=== PATIENT | female | born 1950 | race Caucasian/White ===

== ENCOUNTER 2020-01-13 12:08 | Outpatient (REF) | payer MEDICARE, SELFPAY ==
[2020-01-13 13:05] LABS: MANUAL DIFF FLAG NO
[2020-01-13 13:13] LABS: Basophils Absolute Auto 0.1 X10*3/uL (0.0-0.2); Basophils Percent Auto 0.6 % (0-2); Eosinophils Absolute Auto 0.2 X10*3/uL (0.0-0.4); Eosinophils Percent Auto 2.7 % (0-4); Hematocrit 35.5 % (37-47); Imm Gran Abs Auto 0.06 X10*3/uL (0.00-0.03); Imm Gran Pct Auto 0.7 % (0.0-0.4); Lymphocytes Absolute Auto 2.1 X10*3/uL (1.2-4.9); Lymphocytes Percent Auto 26.3 % (20-40); Mean Corpuscular Hemoglobin 26.1 pg (27.0-33.0); Mean Corpuscular Volume 84.3 fL (80-98); Monocytes Absolute Auto 0.7 X10*3/uL (0.1-1.2); Monocytes Percent Auto 8.5 % (2-11); Neutrophils Absolute Auto 4.9 X10*3/uL (2.0-8.3); Neutrophils Percent Auto 61.2 % (45-73); Platelet Count 300 X10*3/uL (160-400); Red Blood Count 4.21 X10*6/uL (4.20-5.50); Red Cell Distribution Width 14.6 % (11.0-16.0)
[2020-01-13 13:34] LABS: Anion Gap 12 (12-20); Blood Urea Nitrogen 18 mg/dL (9-16); Calcium 8.9 mg/dL (8.4-10.2); Carbon Dioxide 27 mmol/L (22-29); Chloride 104 mmol/L (96-108); Estimated Glomerular Filt Rate > 60; Glucose Random 106 mg/dL (60-115); Potassium 4.4 mmol/l (3.3-5.1); Sodium 139 mmol/L (135-145)
[2020-01-13 13:50] LABS: Estimated Average Glucose 154 mg/dL; Hemoglobin A1C 151.9084 umol/L
== END 2020-01-13 12:09 | disposition home or self-care (01) ==
LOC: HO.LAB 12:08
PROVIDERS: PCP Internal Medicine; Visit Provider Internal Medicine
DX: I10 Essential (primary) hypertension (principal); E11.9 Type 2 diabetes mellitus without complications
CPT/HCPCS: 36415; 80048; 83036; 85025

== ENCOUNTER 2020-03-24 05:50 | Outpatient (REF) | payer MEDICARE, SELFPAY ==
[2020-03-24 07:07] LABS: MANUAL DIFF FLAG NO
[2020-03-24 07:12] LABS: Basophils Absolute Auto 0.1 X10*3/uL (0.0-0.2); Basophils Percent Auto 0.6 % (0-2); Eosinophils Absolute Auto 0.3 X10*3/uL (0.0-0.4); Eosinophils Percent Auto 3.1 % (0-4); Hematocrit 36.8 % (37-47); Hemoglobin 11.3 g/dl (12.0-16.0); Imm Gran Abs Auto 0.04 X10*3/uL (0.00-0.03); Imm Gran Pct Auto 0.4 % (0.0-0.4); Lymphocytes Absolute Auto 2.6 X10*3/uL (1.2-4.9); Lymphocytes Percent Auto 28.6 % (20-40); Mean Corpuscular HGB Conc 30.7 g/dl (31.0-35.0); Mean Corpuscular Hemoglobin 25.5 pg (27.0-33.0); Mean Corpuscular Volume 82.9 fL (80-98); Mean Platelet Volume 9.7 fL (9.4-12.3); Monocytes Absolute Auto 0.8 X10*3/uL (0.1-1.2); Monocytes Percent Auto 8.9 % (2-11); Neutrophils Absolute Auto 5.3 X10*3/uL (2.0-8.3); Neutrophils Percent Auto 58.4 % (45-73); Platelet Count 344 X10*3/uL (160-400); Red Blood Count 4.44 X10*6/uL (4.20-5.50); Red Cell Distribution Width 15.1 % (11.0-16.0)
[2020-03-24 07:26] LABS: Anion Gap 12 (12-20); Blood Urea Nitrogen 24 mg/dL (9-16); Calcium 8.7 mg/dL (8.4-10.2); Carbon Dioxide 29 mmol/L (22-29); Chloride 103 mmol/L (96-108); Estimated Glomerular Filt Rate 58; Glucose Random 140 mg/dL (60-115); Potassium 4.6 mmol/l (3.3-5.1); Sodium 139 mmol/L (135-145)
[2020-03-24 07:31] LABS: Estimated Average Glucose 151 mg/dL; Hemoglobin A1c % 6.9 %
== END 2020-03-24 05:51 | disposition home or self-care (01) ==
LOC: HO.LAB 05:50
PROVIDERS: PCP Internal Medicine; Visit Provider Internal Medicine
DX: I10 Essential (primary) hypertension (principal); E11.9 Type 2 diabetes mellitus without complications
CPT/HCPCS: 36415; 80048; 83036; 85025

== ENCOUNTER 2020-07-30 05:56 | Outpatient (REF) | payer MEDICARE, SELFPAY ==
[2020-07-30 08:14] LABS: MANUAL DIFF FLAG NO
[2020-07-30 08:24] LABS: Basophils Absolute Auto 0.1 X10*3/uL (0.0-0.2); Basophils Percent Auto 0.8 % (0-2); Eosinophils Absolute Auto 0.3 X10*3/uL (0.0-0.4); Eosinophils Percent Auto 4.3 % (0-4); Hemoglobin 11.5 g/dl (12.0-16.0); Imm Gran Abs Auto 0.02 X10*3/uL (0.00-0.03); Imm Gran Pct Auto 0.3 % (0.0-0.4); Lymphocytes Absolute Auto 2.7 X10*3/uL (1.2-4.9); Lymphocytes Percent Auto 33.5 % (20-40); Mean Corpuscular HGB Conc 31.1 g/dl (31.0-35.0); Mean Corpuscular Volume 83.7 fL (80-98); Mean Platelet Volume 10.2 fL (9.4-12.3); Monocytes Absolute Auto 0.8 X10*3/uL (0.1-1.2); Monocytes Percent Auto 9.8 % (2-11); Neutrophils Absolute Auto 4.1 X10*3/uL (2.0-8.3); Neutrophils Percent Auto 51.3 % (45-73); Platelet Count 306 X10*3/uL (160-400); Red Blood Count 4.42 X10*6/uL (4.20-5.50); Red Cell Distribution Width 14.8 % (11.0-16.0)
[2020-07-30 08:26] LABS: Glucose Urine UA NEG (NEG); Leukocyte Esterase Urine TRACE (NEG); Nitrite Urine NEG (NEG); PH 6.5 (5.0-8.0); Urine Blood NEG (NEG); Urine Ketones NEG (NEG); Urine Protein NEG (NEG-TRACE)
[2020-07-30 08:31] LABS: Appearance Urine CLEAR; Color Urine YELLOW
[2020-07-30 08:40] LABS: Alanine Aminotransferase 21 U/L (0-31); Albumin Level 3.7 g/dL (3.5-5.0); Alkaline Phosphatase 60 U/L (39-117); Anion Gap 14 (12-20); Aspartate Amino Transferase 16 U/L (5-31); Bilirubin Total 0.3 mg/dL (0.0-1.0); Blood Urea Nitrogen 23 mg/dL (9-16); Calcium 8.9 mg/dL (8.4-10.2); Carbon Dioxide 29 mmol/L (22-29); Chloride 102 mmol/L (96-108); Cholesterol 145 mg/dL; Estimated Glomerular Filt Rate > 60; Glucose Fasting 136 mg/dL (60-99); HDL Cholesterol 58 mg/dL; LDL Cholesterol Calculated 63 mg/dl; Potassium 4.7 mmol/L (3.3-5.1); Sodium 140 mmol/L (135-145); Total Protein 6.7 g/dL (6.5-8.0); Triglycerides 124 mg/dL
[2020-07-30 08:43] LABS: RBC Urine 0 /HPF (0); Squamous Epithelial Cell Urine 1+ /LPF; WBC Urine 0-2 /HPF (0-4)
[2020-07-30 09:21] LABS: Microalbum/Creatinine Ratio Ur 7.2 ug/mg cr
[2020-07-30 09:36] LABS: Estimated Average Glucose 157 mg/dL; Hemoglobin A1c % 7.1 %
== END 2020-07-30 05:57 | disposition home or self-care (01) ==
LOC: HO.LAB 05:56
PROVIDERS: PCP Internal Medicine; Visit Provider Internal Medicine
DX: E11.9 Type 2 diabetes mellitus without complications (principal); I10 Essential (primary) hypertension; E78.00 Pure hypercholesterolemia, unspecified
CPT/HCPCS: 36415; 80053; 80061; 81001; 82043; 83036; 85025

== ENCOUNTER 2020-09-20 22:13 | Emergency (ER) | payer MEDICARE, SELFPAY ==
--- NOTE | ~2020-09-20 | XR_ITS ---
EXAMINATION: XR ANKLE, LEFT CLINICAL INFORMATION: Left ankle discomfort without injury. COMPARISON: None TECHNIQUE: AP, lateral, and mortise views of the left ankle. FINDINGS: There is a small calcaneal enthesophyte. No acute fracture or dislocation seen. Alignment is anatomic. Joint spaces are maintained. No joint effusion. XR/XR ankle LT min 3V IMPRESSION: No acute fracture or dislocation seen. Small calcaneal enthesophyte.
[2020-09-20 22:15] VITALS: BP 189/65; PULSE 75; RESP 18; TEMP 36.5; O2SAT 97; BMI 45.6
--- NOTE | 2020-09-20 23:51 | ED.EXTPRO ---
HPI - Extremity Problem General Chief complaint: Extremity Problem Stated complaint: Leg pain Time Seen by Provider: 09/20/20 23:50 Source: patient Mode of arrival: ambulatory Limitations: no limitations History of Present Illness HPI Narrative: States pain to the left bottom of the heel and foot and ankle for past couple days Complaint: extremity pain Onset (ago): day(s) Location: left Relieving factors: rest Exacerbating factors: exertion Associated symptoms: denies other symptoms Related Data Allergies Allergy/AdvReac Type Severity Reaction Status Date / Time No Known Allergies Allergy Unverified 12/18/19 14:36 Review of Systems Review of Systems: Constitutional: No Weight loss, No Fever, No Chills, No Night Sweats, No Fatigue, No Malaise ENT/Mouth: No Hearing loss, No Ear Pain, No Nasal Congestion, No Sinus Pain, No Hoarseness, No sore throat, No Rhinorrhea, No Swallowing Difficulty Eyes: No Eye Pain, No Swelling, No Redness, No Foreign Body, No Discharge, No Vision Changes Cardiovascular: No Chest Pain, No SOB, No Dyspnea on Exertion, No Orthopnea, No Edema, No Palpitations Respiratory: No Cough, No Sputum, No Wheezing, No Dyspnea Musculoskeletal: No joint pain, No Myalgias, No Joint Swelling, as noted per HPI Skin: No Skin Lesions, No rash Neuro: No Weakness, No Numbness, No Paresthesias, No Loss of Consciousness, No Dizziness, No Headache Psych: No Social Issues Heme/Lymph: No Bruising, No Bleeding,No Lymphadenopathy Endocrine: No Polyuria, No Polydipsia, No Temperature Intolerance Yes all other systems are reviewed and are negative [facility] Past Medical History Medical History (Updated 09/21/20 @ 00:05 by Haroldo Shipley NP) Diabetes HTN (hypertension) Social History Social History Advance Directives: No Physical Exam Vital Signs: Vital Signs: Last Vital Signs Temp 97.7 F 09/20/20 22:15 Pulse 75 09/20/20 22:15 Resp 18 09/20/20 22:15 BP 189/65 H 09/20/20 22:15 Pulse Ox 97 09/20/20 22:15 Body Mass Index 45.6 Const: General: cooperative and healthy appearing; No acute distress or intoxicated appearing Nutritional Appearance: average body habitus Orientation/consciousness: patient oriented x3 Chest: Chest palpation & inspection: normal inspection of the chest Resp: Effort & Inspection: normal respiratory effort : General: Yes no CVA tenderness Back/Spine/Pelvis: Back: no CVA tenderness Skin: General skin exam: no rashes or lesions noted Neuro: General: patient oriented x3 Extrem: General: Yes normal to inspection Ankle/foot/toe images: 1. Pain to the heel. And tender palpation over the plantar fascia. Otherwise no erythema swelling. Course Course Course Narrative: [place] for/plantar fasciitis. Feels were prosthetic foot inserts in shoes and are and relatively bad condition she states she is aware and she is due for new inserts and will go to [facility] for further evaluation and inserts. Home care, return, follow-up instructions provided. Stable for discharge. MDM - Extremity (Nontraumatic) Imaging Data Ankle x-ray: Radiologist's impression: Heide Romero 70 F [address] [id number] ReportSigned Patient: Heide RomeroMR#: [id number]: 1950cct:[id number]/Sex: 70 / FADM Date: 09/20/20Loc: HO.EDAttending Dr: Ordering Physician: Generic ED Physician Date of Service: 09/20/20 Procedure(s): XR ankle LT min 3V Accession Number(s): [id number] cc: Generic ED Physician~ EXAMINATION: XR ANKLE, LEFT CLINICAL INFORMATION: Left ankle discomfort without injury. COMPARISON: None TECHNIQUE: AP, lateral, and mortise views of the left ankle. FINDINGS: There is a small calcaneal enthesophyte. No acute fracture or dislocation seen. Alignment is anatomic. Joint spaces are maintained. No joint effusion. XR/XR ankle LT min 3V IMPRESSION: No acute fracture or dislocation seen. Small calcaneal enthesophyte. Dictated By:DAYANA BUCK MDSigned By:<Electronically signed by DAYANA BUCK MD in OV>09/20/202235 DD/ 29TD/TT: [employer] Operator: [facility] [place], [place] Discharge Plan Discharge Clinical Impression: Plantar fasciitis of left foot, Heel spur Patient Disposition: Home, Self-Care Instructions: Plantar Fasciitis (ED), Plantar Fasciitis Exercises (ED) Additional Instructions: Your exam is consistent with plantar fasciitis The x-ray of the lower extremity showed a heel spur that could be contributing to her pain. Homecare instructed Supportive footwear as discussed Return if any concerns or worsening symptoms Wear supportive Alexander wrap for comfort Return if any concerns or worsening symptoms otherwise follow-up with her primary care doctor as discussed Thank you Referrals: Roscoe Rahman MD [Primary Care Provider] - 1 week Interventions: ED Discharge Assessment Last Done: 09/21/20 00:30 Discharge Date/Time: 09/21/20 00:33
== END 2020-09-21 00:33 | disposition home or self-care (01) ==
PROVIDERS: Emergency Provider Emergency Medicine; PCP Internal Medicine
DX: M72.2 Plantar fascial fibromatosis (principal); M77.32 Calcaneal spur, left foot
CPT/HCPCS: 73610; 99283; 99284

== ENCOUNTER 2020-11-26 05:55 | Outpatient (REF) | payer MEDICARE, SELFPAY ==
--- NOTE | ~2020-11-26 | XR_ITS ---
EXAMINATION: XR KNEE, LEFT CLINICAL INFORMATION: Left knee pain. COMPARISON: 02/15/2019 TECHNIQUE: Four views of the left knee. FINDINGS: Since the prior study, there appears to have been progression of degenerative changes in the knees with further narrowing of both the medial and lateral compartments. Sclerosis and osteophyte formation is present. The patellofemoral compartment appears narrowed and posterior patellar osteophytes are seen that are unchanged. XR/XR knee LT 4V IMPRESSION: Tricompartmental degenerative changes which appear slightly increased when compared to the 2019 study with increased joint space narrowing.
[2020-11-26 07:13] LABS: Estimated Average Glucose 154 mg/dL
[2020-11-26 07:27] LABS: Alanine Aminotransferase 26 U/L (0-31); Albumin Level 3.9 g/dL (3.5-5.0); Alkaline Phosphatase 61 U/L (39-117); Anion Gap 12 (12-20); Aspartate Amino Transferase 19 U/L (5-31); Bilirubin Total 0.3 mg/dL (0.0-1.0); Blood Urea Nitrogen 18 mg/dL (9-16); Calcium 9.4 mg/dL (8.4-10.2); Carbon Dioxide 30 mmol/L (22-29); Chloride 104 mmol/L (96-108); Estimated Glomerular Filt Rate 54; Glucose Random 160 mg/dL (60-115); Potassium 4.6 mmol/L (3.3-5.1); Sodium 141 mmol/L (135-145)
[2020-11-26 08:52] LABS: Creatinine Urine 137.22 mg/dL; Microalbum/Creatinine Ratio Ur 10.2 ug/mg cr
== END 2020-11-26 05:56 | disposition home or self-care (01) ==
LOC: HO.LAB 05:55
PROVIDERS: PCP Internal Medicine; Visit Provider Internal Medicine
DX: E11.9 Type 2 diabetes mellitus without complications (principal); I10 Essential (primary) hypertension; M25.562 Pain in left knee
CPT/HCPCS: 36415; 73564; 80053; 82043; 83036

== ENCOUNTER 2021-01-04 07:52 | Outpatient (REF) | payer MEDICARE, SELFPAY ==
--- NOTE | ~2021-01-04 | XR_ITS ---
EXAMINATION: KNEE X-RAY CLINICAL INFORMATION: Pain COMPARISON: Previous left knee x-ray October 2020 TECHNIQUE: Standing AP view of both knees and lateral and sunrise view of the left knee FINDINGS: Left knee: Bone alignment is normal. No fracture or dislocation is seen. There is tricompartment arthritis. There is no significant joint effusion. Standing AP view of the right knee demonstrates arthritis at the medial femoral tibial joint. XR/XR knee LT 2V IMPRESSION: Left knee: Tricompartment arthritis.
--- NOTE | ~2021-01-04 | XR_ITS ---
EXAMINATION: KNEE X-RAY CLINICAL INFORMATION: Pain COMPARISON: Previous left knee x-ray October 2020 TECHNIQUE: Standing AP view of both knees and lateral and sunrise view of the left knee FINDINGS: Left knee: Bone alignment is normal. No fracture or dislocation is seen. There is tricompartment arthritis. There is no significant joint effusion. Standing AP view of the right knee demonstrates arthritis at the medial femoral tibial joint. XR/XR knee standing BI IMPRESSION: Left knee: Tricompartment arthritis.
== END 2021-01-04 07:53 | disposition home or self-care (01) ==
LOC: HO.HOSX 07:52
PROVIDERS: Visit Provider Physician Assistant
DX: M17.12 Unilateral primary osteoarthritis, left knee (principal)
CPT/HCPCS: 20610; 73560; 73565; 99212; J1040

== ENCOUNTER 2021-02-04 05:56 | Outpatient (REF) | payer MEDICARE, SELFPAY ==
[2021-02-04 06:04] LABS: MANUAL DIFF FLAG NO
[2021-02-04 07:11] LABS: Basophils Percent Auto 0.4 % (0-2); Eosinophils Absolute Auto 0.3 X10*3/uL (0.0-0.4); Eosinophils Percent Auto 2.9 % (0-4); Hematocrit 36.2 % (37.0-47.0); Hemoglobin 11.4 g/dl (12.0-16.0); Imm Gran Abs Auto 0.03 X10*3/uL (0.00-0.03); Imm Gran Pct Auto 0.3 % (0.0-0.4); Lymphocytes Absolute Auto 2.5 X10*3/uL (1.2-4.9); Lymphocytes Percent Auto 27.9 % (20-40); Mean Corpuscular HGB Conc 31.5 g/dl (31.0-35.0); Mean Corpuscular Hemoglobin 26.1 pg (27.0-33.0); Mean Corpuscular Volume 82.8 fL (80.0-98.0); Mean Platelet Volume 9.7 fL (9.4-12.3); Monocytes Absolute Auto 0.8 X10*3/uL (0.1-1.2); Neutrophils Absolute Auto 5.3 x10*3/uL (2.0-8.3); Neutrophils Percent Auto 59.5 % (45-73); Platelet Count 325 X10*3/uL (160-400); Red Blood Count 4.37 X10*6/uL (4.20-5.50); White Blood Count 8.9 X10*3/uL (4.8-10.8)
[2021-02-04 07:34] LABS: Anion Gap 12 (12-20); Blood Urea Nitrogen 22 mg/dL (9-16); Calcium 9.2 mg/dL (8.4-10.2); Carbon Dioxide 29 mmol/L (22-29); Chloride 103 mmol/L (96-108); Estimated Glomerular Filt Rate 54; Glucose Random 154 mg/dL (60-115); Potassium 4.8 mmol/L (3.3-5.1); Sodium 139 mmol/L (135-145)
== END 2021-02-04 05:57 | disposition home or self-care (01) ==
LOC: HO.LAB 05:56
PROVIDERS: PCP Internal Medicine; Visit Provider Internal Medicine
DX: I12.9 Hypertensive chronic kidney disease with stage 1 through stage 4 chronic kidney disease, or unspecified chronic kidney disease (principal); N18.9 Chronic kidney disease, unspecified; E11.22 Type 2 diabetes mellitus with diabetic chronic kidney disease
CPT/HCPCS: 36415; 80048; 85025

== ENCOUNTER 2021-05-10 10:39 | Outpatient (REF) | payer MEDICARE, SELFPAY ==
[2021-05-10 10:59] LABS: COVID-19 Test Negative (Negative)
== END 2021-05-10 10:40 | disposition home or self-care (01) ==
LOC: HO.LNP 10:39
PROVIDERS: Visit Provider Internal Medicine
DX: Z20.822 Contact with and (suspected) exposure to COVID-19 (principal); R10.9 Unspecified abdominal pain
CPT/HCPCS: 87635

== ENCOUNTER 2021-07-11 10:44 | Outpatient (REF) | payer MEDICARE, SELFPAY ==
--- NOTE | ~2021-07-11 | XR_ITS ---
EXAMINATION: XR CERVICAL SPINE CLINICAL INFORMATION: Neck pain COMPARISON: None TECHNIQUE: 6 views of the cervical spine, inclusive of flexion and extension views, were obtained. FINDINGS: Bone alignment is normal. No fracture or dislocation is seen. There is degenerative spondylosis at C4-C5.. There is degenerative spondylosis and degenerative disc disease at C5-C6 and C6-C7. Right-sided neural foramen are patent. There is mild left-sided neuroforaminal narrowing from bony osteophyte at C3-C4 and C5-C6. Prevertebral soft tissues are normal. XR/XR cervical spine min 6V IMPRESSION: Degenerative changes.
== END 2021-07-11 10:45 | disposition home or self-care (01) ==
LOC: HO.XRAY 10:44
PROVIDERS: PCP Internal Medicine; Visit Provider Internal Medicine
DX: M54.2 Cervicalgia (principal)
CPT/HCPCS: 72052

== ENCOUNTER 2021-07-22 06:09 | Day surgery (SDC) | payer MEDICARE, SELFPAY ==
[2021-07-22 06:35] VITALS: BMI 40.6
[2021-07-22 06:41] VITALS: BP 174/82; PULSE 107; RESP 18; TEMP 36.3; O2SAT 97
[2021-07-22 07:11] LABS: Glucose, Whole Blood 140 mg/dL (60-115)
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
[2021-07-22] MEDS: Lactated Ringers 1,000 ML 80 ML IVCONT (07:35)
--- NOTE | 2021-07-22 08:27 | PM.OP ---
Brief Operative Note Date of Service: 07/22/21 Pre-op diagnosis: Screening Post-op diagnosis: other (Colon polyp) Procedure: Colonoscopy to the cecum and TI with biopsy and removal of polyp Surgeon: Omdi Green Anesthesia: MAC Was an Restaurant Attendant used for this Procedure?: No Estimated blood loss (mL): 2.0 Pathology: other (A. Ascending colon polyp) Condition: stable Disposition: PACU
[2021-07-22 08:28] VITALS: BP 100/30; PULSE 87; RESP 16; TEMP 36.3; O2SAT 97
[2021-07-22 08:42] VITALS: BP 114/61; PULSE 84; RESP 16; TEMP 36.3; O2SAT 97
--- NOTE | 2021-07-22 17:52 | HO.POSTANES ---
Post Anesthesia Evaluation Post Anesthesia Evaluation Vital Signs: Vital Signs Temp Pulse Resp BP Pulse Ox 07/22/21 08:42 97.3 F 84 16 114/61 97 07/22/21 08:28 97.3 F 87 16 100/30 L 97 07/22/21 06:41 97.3 F 107 H 18 174/82 H 97 Anesthesia: Monitored Mental Status: Awake Pain Control: Satisfactory Nausea/Vomiting: None Hydration: Adequate Anesthesia-Related Issues: No Anes. Related Issues
--- NOTE | 2021-07-22 18:55 | OP_ITS ---
SURGEON: Omid Green MD INDICATIONS: The patient presents for evaluation of colorectal cancer screening and prior history of tubular adenoma of the colon. Full consent was obtained from her for this, including risks of bleeding and perforation. PREOPERATIVE DIAGNOSIS: POSTOPERATIVE DIAGNOSIS: PROCEDURE PERFORMED: Colonoscopy to the cecum and terminal ileum with biopsy and removal of polyp. ESTIMATED BLOOD LOSS: COMPLICATIONS: ANESTHESIA: Monitored anesthesia care. ASSISTANTS: SPECIMENS: PREOPERATIVE DIAGNOSES: Colorectal cancer screening and personal history of tubular adenoma of the colon. POSTOPERATIVE DIAGNOSES: Colorectal cancer screening and personal history of tubular adenoma of the colon, small colon polyp, diverticulosis, and internal hemorrhoids. DESCRIPTION OF PROCEDURE: The patient was placed in the left lateral decubitus position. The digital rectal exam revealed no abnormalities. The Olympus video pediatric colonoscope was entered into the rectum advanced easily to the cecum. Once in the cecum, I did identify normal-appearing cecal pouch with appendiceal orifice and a normal-appearing ileocecal valve. The terminal ileum was cannulated and appeared normal. Scope was withdrawn back in the colon. The entire cecum and ileocecal valve appeared normal. The scope was slowly withdrawn assessing all mucosal surfaces carefully. Preparation was excellent. In the ascending colon was a flat approximately 4 mm polyp, which was biopsied and completely removed with cold biopsy forceps. I did not visualize any other polyps, colitis, nor angiodysplasia. There was a moderate amount of sigmoid diverticulosis. In the rectum, scope was retroflexed visualizing internal hemorrhoids, but no other pathology. The rectal mucosa appeared normal. The scope was straightened and withdrawn from the patient. She tolerated the procedure well and was returned to the recovery area in stable condition. IMPRESSION: 1. Small colon polyp, status post biopsy removal. 2. Diverticulosis. 3. Internal hemorrhoids. PLAN: The results of the biopsies will be checked. If the polyp is a tubular adenoma, I would recommend a followup colonoscopy in 5 years. If it is only hyperplastic then I do not think she will need any further screening colonoscopies given her age and previous colonoscopy results in 2003 and 2010. She was advised not to use any aspirin and NSAIDs for 1 week. MD DM Ortiz/SONNY / [id number] ESTHELA
== END 2021-07-22 09:20 | disposition home or self-care (01) ==
PROVIDERS: PCP Internal Medicine; Visit Provider Internal Medicine
PROC: 0DJD8ZZ Inspection of Lower Intestinal Tract, Via Natural or Artificial Opening Endoscopic (ICD-10-PCS; CPT 45378; principal; 2021-07-22 07:30)
DX: Z12.11 Encounter for screening for malignant neoplasm of colon (principal); Z86.010 Personal history of colon polyps; D12.2 Benign neoplasm of ascending colon; K57.30 Diverticulosis of large intestine without perforation or abscess without bleeding; K64.8 Other hemorrhoids; I10 Essential (primary) hypertension; G47.33 Obstructive sleep apnea (adult) (pediatric); E78.5 Hyperlipidemia, unspecified; Z79.82 Long term (current) use of aspirin; E11.9 Type 2 diabetes mellitus without complications; Z79.84 Long term (current) use of oral hypoglycemic drugs; Z79.899 Other long term (current) drug therapy
CPT/HCPCS: 45380; 82947; 88305

== ENCOUNTER 2021-07-26 12:46 | Outpatient (REF) | payer MEDICARE, SELFPAY ==
--- NOTE | ~2021-07-26 | CT_ITS ---
EXAMINATION: CT HEAD WITHOUT CONTRAST CLINICAL INFORMATION: Tendinitis. Frontal headache. COMPARISON: None TECHNIQUE: Contiguous axial imaging was performed from the skull base to vertex without intravenous administration of contrast. This CT examination was performed using dose optimization techniques as appropriate, variously including the following: *Automated exposure control *Adjustment of mA and/or kV according to patient size (this includes techniques or standardized protocols for targeted exams where dose is matched to indication/reason for exam; i.e. extremities or head) *Use of iterative reconstruction technique DLP: 863 mGy-cm FINDINGS: There is no evidence of acute intracranial hemorrhage or territorial infarction. No abnormal mass effect or midline shift is seen. Underwood to white matter differentiation is well preserved. No extra-axial fluid collections are identified. The ventricles are normal in size. There is no abnormal attenuation within the brain parenchyma. The osseous structures and soft tissues are normal. The mastoid air cells and visualized portions of the paranasal sinuses are well aerated. CT/CT head/brain wo con IMPRESSION: No acute intracranial process seen in.
== END 2021-07-26 12:47 | disposition home or self-care (01) ==
LOC: HO.CT 12:46
PROVIDERS: PCP Internal Medicine; Visit Provider Internal Medicine
DX: H93.13 Tinnitus, bilateral (principal); R51.9 Headache, unspecified
CPT/HCPCS: 70450

== ENCOUNTER 2021-10-14 06:04 | Outpatient (REF) | payer MEDICARE, SELFPAY ==
[2021-10-14 06:09] LABS: MANUAL DIFF FLAG NO
[2021-10-14 07:17] LABS: Basophils Absolute Auto 0.1 X10*3/uL (0.0-0.2); Basophils Percent Auto 0.7 % (0-2); Eosinophils Absolute Auto 0.3 X10*3/uL (0.0-0.4); Eosinophils Percent Auto 3.7 % (0-4); Hematocrit 38.9 % (37.0-47.0); Hemoglobin 12.3 g/dl (12.0-16.0); Imm Gran Abs Auto 0.04 X10*3/uL (0.00-0.03); Imm Gran Pct Auto 0.5 % (0.0-0.4); Lymphocytes Absolute Auto 2.9 X10*3/uL (1.2-4.9); Lymphocytes Percent Auto 33.9 % (20-40); Mean Corpuscular HGB Conc 31.6 g/dl (31.0-35.0); Mean Corpuscular Hemoglobin 26.5 pg (27.0-33.0); Mean Corpuscular Volume 83.7 fL (80.0-98.0); Mean Platelet Volume 9.8 fL (9.4-12.3); Monocytes Absolute Auto 0.7 X10*3/uL (0.1-1.2); Monocytes Percent Auto 8.1 % (2-11); Neutrophils Absolute Auto 4.5 x10*3/uL (2.0-8.3); Neutrophils Percent Auto 53.1 % (45-73); Platelet Count 334 X10*3/uL (160-400); Red Blood Count 4.65 X10*6/uL (4.20-5.50); Red Cell Distribution Width 14.8 % (11.0-16.0); White Blood Count 8.5 X10*3/uL (4.8-10.8)
[2021-10-14 07:30] LABS: Estimated Average Glucose 171 mg/dL; Hemoglobin A1c % 7.6 %
[2021-10-14 07:48] LABS: Alanine Aminotransferase 27 U/L (0-31); Albumin Level 3.9 g/dL (3.5-5.0); Alkaline Phosphatase 61 U/L (39-117); Anion Gap 14 (12-20); Aspartate Amino Transferase 20 U/L (5-31); Bilirubin Total 0.3 mg/dL (0.0-1.0); Blood Urea Nitrogen 18 mg/dL (9-16); Calcium 9.3 mg/dL (8.4-10.2); Carbon Dioxide 28 mmol/L (22-29); Chloride 103 mmol/L (96-108); Cholesterol 156 mg/dL; Estimated Glomerular Filt Rate 55; Glucose Fasting 147 mg/dL (60-99); HDL Cholesterol 60 mg/dL; Iron 43 mcg/dL (30-160); LDL Cholesterol Calculated 73 mg/dl; Percent Iron Saturation 12 % (15-50); Sodium 140 mmol/L (135-145); Total Iron Binding Capacity 371 mcg/dL (228-428); Total Protein 6.9 g/dL (6.5-8.0); Triglycerides 117 mg/dL; Unsaturated Iron Binding 328 ug/dL
[2021-10-14 10:05] LABS: Microalbum/Creatinine Ratio Ur 12.3 ug/mg cr
== END 2021-10-14 06:05 | disposition home or self-care (01) ==
LOC: HO.LAB 06:04
PROVIDERS: PCP Internal Medicine; Visit Provider Internal Medicine
DX: E11.22 Type 2 diabetes mellitus with diabetic chronic kidney disease (principal); I12.9 Hypertensive chronic kidney disease with stage 1 through stage 4 chronic kidney disease, or unspecified chronic kidney disease; D63.1 Anemia in chronic kidney disease; N18.9 Chronic kidney disease, unspecified; E78.00 Pure hypercholesterolemia, unspecified
CPT/HCPCS: 36415; 80053; 80061; 82043; 83036; 83540; 85025

== ENCOUNTER → 2021-11-10 09:24 | Outpatient (BNVA) | payer MEDICARE, SELFPAY | PROVIDERS: PCP Internal Medicine; Visit Provider Physician Assistant | DX: M17.12 Unilateral primary osteoarthritis, left knee (principal) | CPT/HCPCS: 20610; 99212; J1020 ==

== ENCOUNTER 2022-05-03 09:22 | Emergency (ER) | payer MEDICARE, SELFPAY ==
--- NOTE | ~2022-05-03 | XR_ITS ---
EXAMINATION: XR FOOT, RIGHT CLINICAL INFORMATION: Dorsal right foot pain after dropping item on it. COMPARISON: Right ankle 11/19/2019 TECHNIQUE: AP, lateral, and oblique views of the right foot. FINDINGS: There is mild hallux valgus seen with degenerative changes present at the first metatarsal phalangeal joint. Degenerative changes are present at the interphalangeal joints. No fractures are seen. A plantar calcaneal spur and some enthesopathy at the insertion of the Achilles tendon are again noted. XR/XR foot RT 2V IMPRESSION: No acute fracture or dislocation. Degenerative changes as described above.
[2022-05-03 09:42] VITALS: BP 160/84; PULSE 110; RESP 20; TEMP 36.7; O2SAT 96; BMI 44.1
--- NOTE | 2022-05-03 09:59 | PC.NURSE ---
patient a&ox3, vss, pt awaiting radiology to rt foot
--- NOTE | 2022-05-03 10:41 | PC.NURSE ---
pt A0x3, reports pain in right foot. waiting provider.
--- NOTE | 2022-05-03 10:56 | ED.LOWEXIN ---
HPI - Extremity Injury (Lower) General Chief Complaint: Extremity Injury, Lower Stated Complaint: R foot inj Time Seen by Provider: 05/03/22 09:49 Source: patient Mode of arrival: ambulatory Limitations: no limitations History of Present Illness HPI Narrative: 72-year-old female presenting to the ER with complaints of right great toe/foot pain/swelling/redness after she dropped a piece of wood and then a can on her foot on Sunday. She reports since then her pain has been progressively worsening along with the redness and swelling. She denies any fevers, recent falls, paresthesias, weakness, calf tenderness, leg swelling, history of gout history of MRSA or any other symptoms complaints or concerns at this time. complaint: foot injury Onset (ago): day(s) (2) Injury: Right: toes (great toe) Type of Injury: blunt Place: home Severity: moderate Relieving factors: nothing Exacerbating factors: weight bearing, movement and palpation Context: direct blow Associated symptoms: swelling and able to partially bear weight Other symptoms: none Related Data Home Medications Medication Instructions Recorded Confirmed citalopram 10 mg tablet 10 mg PO DAILY 02/14/21 07/14/21 ketorolac 0.5 % eye drops 1 drp ophthalmic (eye) TID 02/14/21 07/14/21 lisinopril 20 mg tablet 20 mg PO BID 02/14/21 07/14/21 metformin 500 mg tablet 1,000 mg PO BID 02/14/21 07/14/21 simvastatin 10 mg tablet 10 mg PO BEDTIME 02/14/21 07/14/21 aspirin 81 mg chewable tablet 81 mg PO DAILY 07/14/21 07/14/21 cholecalciferol (vitamin D3) 125 125 mcg PO DAILY 07/14/21 07/14/21 mcg (5,000 unit) tablet (Vitamin D3) multivitamin 1 tab PO BID 07/14/21 07/14/21 Previous Rx's Medication Instructions Recorded cephalexin 500 mg capsule 500 mg PO Q6H 7 days #28 caps 05/03/22 doxycycline monohydrate 100 mg 100 mg PO BID 7 days #14 tabs 05/03/22 tablet ibuprofen 800 mg tablet 800 mg PO Q8H PRN pain #14 tabs 05/03/22 Allergies Allergy/AdvReac Type Severity Reaction Status Date / Time No Known Allergies Allergy Verified 05/03/22 10:37 Review of Systems Review of Systems: Constitutional : No Weight loss, No Fever, No Chills, No Night Sweats, No Fatigue, No Malaise ENT/Mouth : No Hearing loss, No Ear Pain, No Nasal Congestion, No Sinus Pain, No Hoarseness, No sore throat, No Rhinorrhea, No Swallowing Difficulty Eyes: No Eye Pain, No Swelling, No Redness, No Foreign Body, No Discharge, No Vision Changes Cardiovascular : No Chest Pain, No SOB, No Dyspnea on Exertion, No Orthopnea, No Edema, No Palpitations Respiratory : No Cough, No Sputum, No Wheezing, No Smoke Exposure, No Dyspnea Gastrointestinal : No Nausea, No Vomiting, No Diarrhea, No Constipation, No abdominal Pain, No Hematochezia, No Melena Genitourinary : no irregular bleeding, No Dysuria, No Urinary Frequency, No Hematuria, No Urinary Incontinence, No Urgency, No Flank Pain, No Urinary Flow Changes, No Hesitancy Musculoskeletal : + right great toe pain/swelling/erythema, No Myalgias Skin : No Skin Lesions, No rash Neuro : No Weakness, No Numbness, No Paresthesias, No Loss of Consciousness, No Dizziness, No Headache Psych : No Anxiety/Panic, No Depression, No SI/HI/AH/VH, No Social Issues, Heme/Lymph: No Bruising, No Bleeding,No Lymphadenopathy Endocrine : No Polyuria, No Polydipsia, No Temperature Intolerance Yes all other systems are reviewed and are negative [facility] Past Medical History Attestation statement: The following information was validated with the patient. Source: old records reviewed and nursing notes reviewed Medical History Anxiety Arthritis Diabetes Elevated cholesterol HTN (hypertension) Hx of head injury CONCHITA on CPAP Surgical History Hx of bilateral cataract extraction Hx of colonoscopy Social History Social History Alcohol intake: never Patient Tobacco Use Status: Former Tobacco user Smoked in Last 30 Days: No Use of substances other than those prescribed or required for medical reasons: No Advance Directives: No Advance Directives Information Provided: No Current occupational status: retired Current occupation: rt handed Physical Exam Vital Signs: Vital Signs: Last Vital Signs Temp 98.1 F 02/01/23 09:42 Pulse 110 H 05/03/22 09:42 Resp 20 05/03/22 09:42 BP 160/84 H 05/03/22 09:42 Pulse Ox 96 05/03/22 09:42 O2 Del Method 05/03/22 09:42 BMI result Body Mass Index 44.1 vital signs have been reviewed as normal and appeared to be correct. Blood pressure 160/84 Heart rate 110. Respiration rate normal. Temperature normal. Oxygen saturation normal. Appearance: Alert. Oriented X3. No acute distress. Head: Normal external exam. Normocephalic. Atraumatic. Eyes: PERRLA. EOMI. Conjunctiva and sclera normal. Eyelids normal. ENT: Pharynx normal. Uvula midline. Moist mucous membranes. Neck: Normal inspection. Neck supple. FROM. CVS: Normal heart rate and rhythm. Respiratory: No respiratory distress. Painless inspiration. Skin: Skin warm and dry. Normal skin color. Normal skin turgor. No rashes/lesions/lacerations noted. Extremities: To right foot great toe at the proximal aspect patient has moderate soft tissue swelling and tenderness to palpation with erythema warm to touch consistent with cellulitic infection. There is no streaking noted. There is no obvious ligamentous or tendon injury noted. No obvious deformities are noted. She has full range of motion of right toe/foot and ankle joint. Achilles tendon is intact. Negative Ramos test. No lower extremity edema or calf tenderness noted. Otherwise all other extremities exhibit normal range of motion nontender. Neuro: Oriented X 3. No motor deficit. No sensory deficit. Reflexes normal. Normal steady gait. No focal neuro deficits noted. Vascular: + radial pulses/+ 2 distal pedal pulses/+2 dorsalis pedis b/l. Normal cap refill. No cyanosis noted to upper extremity nails and lower extremity toes nails. Course Course Course Narrative: 72-year-old female presenting to the ER with complaints of right great toe/foot pain/swelling/redness after she dropped a piece of wood and then a can on her foot on Sunday. She reports since then her pain has been progressively worsening along with the redness and swelling. On exam patient has tenderness palpation/erythema/warm to touch to the right great toe at the proximal aspect. No obvious ligamentous or tendon injury noted. No obvious deformities are noted. No lower extremity edema or calf tenderness is noted. No streaking is noted. Not consistent with osteomyelitis. Not consistent with obvious fracture. Not consistent with septic joint. Not consistent with DVT. Therefore x-ray obtained and negative for any acute processes only revealed chronic changes. Therefore at this time will treat symptomatically will place in a ortho boot, treat for possible cellulitis infection and toe sprain along with instructions return if any new or worsening symptoms follow up with primary care provider. Patient understands agrees with this plan. Medical Decision Making Independent Interpretation I performed an independent interpretation of an: Plain X-Ray Radiology Impression Discussion of test interpretation with radiology: I have reviewed the radiologist's reading. Radiologist Impression: FINDINGS: There is mild hallux valgus seen with degenerative changes present at the first metatarsal phalangeal joint. Degenerative changes are present at the interphalangeal joints. No fractures are seen. A plantar calcaneal spur and some enthesopathy at the insertion of the Achilles tendon are again noted.? XR/XR foot RT 2V IMPRESSION: No acute fracture or dislocation. Degenerative changes as described above. Procedures Orthopedic Splinting/Casting Injury #1: Side: right Lower Extremity Injury Location: toe Lower Extremity Immobilizer: boot orthosis Discharge Plan Discharge Clinical Impression: Sprain of great toe, right, Cellulitis of great toe of right foot Patient Disposition: Home, Self-Care Instructions: Cellulitis (ED), Foot Sprain (ED) Prescriptions: New ibuprofen 800 mg tablet 800 mg PO Q8H PRN (Reason: pain) Qty: 14 0RF cephalexin 500 mg capsule 500 mg PO Q6H 7 Days Qty: 28 0RF doxycycline monohydrate 100 mg tablet 100 mg PO BID 7 Days Qty: 14 0RF No Action multivitamin [One A Day Vitamin] Tablet 1 tab PO BID aspirin 81 mg Tablet,Chewable 81 mg PO DAILY cholecalciferol (vitamin D3) [Vitamin D3] 125 mcg (5,000 unit) Tablet 125 mcg PO DAILY citalopram 10 mg tablet 10 mg PO DAILY lisinopril 20 mg tablet 20 mg PO BID simvastatin 10 mg tablet 10 mg PO BEDTIME metformin 500 mg tablet 1,000 mg PO BID ketorolac 0.5 % drops 1 drp ophthalmic (eye) TID Referrals: Roscoe Rahman MD [Primary Care Provider] - 2 days
[2022-05-03] MEDS: Ibuprofen 800 MG TABLET PO (11:10)
--- NOTE | 2022-05-03 11:28 | PC.NURSE ---
walking shoe applied per order
--- NOTE | 2022-05-03 11:29 | PC.NURSE ---
this nurse attempted to apple walking boot to affected extremity, due to pt comfort and stability, provider chavez'd geni shoe for safety comfort and support. pt able to abulate with more steady gait vs the walking boot. pt discharged
== END 2022-05-03 11:29 | disposition home or self-care (01) ==
PROVIDERS: Emergency Provider Student in an Organized Health Care Education/Training Program; PCP Internal Medicine
DX: S93.501A Unspecified sprain of right great toe, initial encounter (principal); S99.921A Unspecified injury of right foot, initial encounter; L03.031 Cellulitis of right toe; X58.XXXA Exposure to other specified factors, initial encounter; Y93.9 Activity, unspecified; Y92.9 Unspecified place or not applicable; Y99.9 Unspecified external cause status; Z79.899 Other long term (current) drug therapy; Z87.891 Personal history of nicotine dependence
CPT/HCPCS: 29515; 73620; 99283; 99284

== ENCOUNTER 2022-06-07 16:17 | Outpatient (REF) | payer MEDICARE, SELFPAY ==
--- NOTE | ~2022-06-07 | US_ITS ---
EXAMINATION: US VENOUS ULTRASOUND WITH DOPPLER LOWER EXTREMITY, LEFT CLINICAL INFORMATION: Edema. COMPARISON: None TECHNIQUE: Ultrasound of the deep veins is performed from the hip to the calf with compression sonography and color and pulse Doppler assessment. Spectral analysis with color-flow imaging is performed. FINDINGS: There is normal venous compression and respiratory variation and augmented flow. The visualized common femoral vein, superficial femoral vein, profunda femoral vein, popliteal vein, and the trifurcation region shows no evidence of deep venous thrombosis. There is no significant popliteal fossa cyst. If the patient's symptoms persist, followup ultrasound in 5 days 7 days might be of value to exclude proximal propagation from a non-visualized calf vein. US/US venous duplex LE LT IMPRESSION: No DVT demonstrated in the left lower extremity.
[2022-06-07 16:45] LABS: MANUAL DIFF FLAG NO
[2022-06-07 17:32] LABS: Basophils Absolute Auto 0.1 X10*3/uL (0.0-0.2); Basophils Percent Auto 0.5 % (0-2); Eosinophils Absolute Auto 0.2 X10*3/uL (0.0-0.4); Eosinophils Percent Auto 1.4 % (0-4); Estimated Average Glucose 226 mg/dL; Hematocrit 37.5 % (37.0-47.0); Hemoglobin 11.9 g/dl (12.0-16.0); Hemoglobin A1c % 9.5 %; Imm Gran Abs Auto 0.07 X10*3/uL (0.00-0.03); Imm Gran Pct Auto 0.6 % (0.0-0.4); Lymphocytes Absolute Auto 2.4 X10*3/uL (1.2-4.9); Lymphocytes Percent Auto 21.2 % (20-40); Mean Corpuscular HGB Conc 31.7 g/dl (31.0-35.0); Mean Corpuscular Hemoglobin 25.5 pg (27.0-33.0); Mean Corpuscular Volume 80.3 fL (80.0-98.0); Mean Platelet Volume 9.9 fL (9.4-12.3); Monocytes Absolute Auto 0.9 X10*3/uL (0.1-1.2); Neutrophils Absolute Auto 7.6 x10*3/uL (2.0-8.3); Neutrophils Percent Auto 68.3 % (45-73); Platelet Count 362 X10*3/uL (160-400); Red Blood Count 4.67 X10*6/uL (4.20-5.50); Red Cell Distribution Width 14.6 % (11.0-16.0); White Blood Count 11.1 X10*3/uL (4.8-10.8)
[2022-06-07 17:41] LABS: Appearance Urine Clear; Color Urine Yellow; Glucose Urine UA Negative (Negative); Leukocyte Esterase Urine Small (1+) (Negative); Nitrite Urine Negative (Negative); PH 7.5 (5.0-9.0); Specific Gravity - Urine 1.015 (1.005-1.025); UMIC TRIGGER UACC YES; Urine Blood Negative (Negative); Urine Ketones Negative (Negative); Urine Protein 30 (1+) mg/dL (Neg-Trace)
[2022-06-07 17:53] LABS: Bacteria Urine None Seen (None Seen); Hyaline Casts Urine 0-2 /LPF (0-2); RBC Urine 0-2 /HPF (0-2); Squamous Epithelial Cell Urine 0-2 /HPF (0-2); UACC Culture Trigger YES
[2022-06-07 18:00] LABS: Creatinine Urine 112.81 mg/dL; Microalbum/Creatinine Ratio Ur 94.8 ug/mg cr
[2022-06-07 18:04] LABS: Alanine Aminotransferase 24 U/L (0-31); Albumin Level 3.9 g/dL (3.5-5.0); Alkaline Phosphatase 60 U/L (39-117); Anion Gap 17 (12-20); Aspartate Amino Transferase 20 U/L (5-31); Bilirubin Total 0.3 mg/dL (0.0-1.0); Blood Urea Nitrogen 15 mg/dL (9-16); C Reactive Protein 0.82 mg/dL (< or = 0.50); Calcium 9.3 mg/dL (8.4-10.2); Carbon Dioxide 25 mmol/L (22-29); Chloride 103 mmol/L (96-108); Estimated Glomerular Filt Rate 57; Glucose Random 152 mg/dL (60-115); Potassium 4.4 mmol/L (3.3-5.1); Sodium 141 mmol/L (135-145); Total Protein 6.9 g/dL (6.5-8.0)
[2022-06-07 18:20] LABS: Free T4 (Free Thyroxine) 1.17 ng/dL (0.71-1.85)
== END 2022-06-07 16:18 | disposition home or self-care (01) ==
LOC: HO.US 16:17
PROVIDERS: PCP Internal Medicine; Visit Provider Internal Medicine
DX: M79.605 Pain in left leg (principal); R10.9 Unspecified abdominal pain; E11.9 Type 2 diabetes mellitus without complications; I10 Essential (primary) hypertension
CPT/HCPCS: 36415; 80053; 81001; 82043; 83036; 84439; 85025; 86140; 87086; 93971

== ENCOUNTER 2022-06-14 07:24 | Outpatient (REF) | payer MEDICARE, SELFPAY ==
--- NOTE | ~2022-06-14 | US_ITS ---
EXAMINATION: US ABDOMEN COMPLETE CLINICAL INFORMATION: Abdominal pain. COMPARISON: Renal ultrasound 09/23/2018. TECHNIQUE: Real-time imaging of the abdominal viscera. Technically limited study secondary to body habitus. FINDINGS: Very limited examination secondary to patient body habitus and shadowing from overlying bowel gas. PANCREAS: Not well visualized due to shadowing from overlying bowel gas. ABDOMINAL AORTA: The proximal, mid, and distal segments are normal in caliber. INFERIOR VENA CAVA: Visualized portions are normal. LIVER: The liver is normal in size. The liver contour is normal. Increased echogenicity. No focal hepatic lesion. There is no intrahepatic biliary duct dilatation seen. GALLBLADDER: Normal. The gallbladder is physiologically distended without evidence of stones, sludge, polyps, wall thickening or pericholecystic fluid. COMMON BILE DUCT: Normal in caliber measuring 0.6 cm in diameter. RIGHT KIDNEY: Cortical thinning. Scattered echogenic foci, that could represent vascular calcifications or medullary nephrocalcinosis. No hydronephrosis. No renal calculi or focal parenchymal lesions. The kidney measures 12.5 cm in maximum dimension. Trace amount of perinephric free fluid. LEFT KIDNEY: Cortical thinning. As above, there are scattered echogenic foci likely that could represent vascular calcifications or medullary nephrocalcinosis. No hydronephrosis. No renal calculi or focal parenchymal lesions. The kidney measures 11.2 cm in maximum dimension. SPLEEN: Normal. The spleen measures 12.0 cm in maximum dimension. FREE FLUID: None. US/US abdomen complete IMPRESSION: 1. Very limited examination secondary to patient body habitus and shadowing from overlying bowel gas. 2. Increased hepatic echogenicity is nonspecific and could be seen in the setting of hepatic steatosis or hepatocellular disease. 3. Bilateral renal cortical thinning with scattered echogenic foci that could represent vascular calcifications or medullary nephrocalcinosis. 4. Trace amount of right perinephric free fluid, nonspecific. If symptoms persist, recommend correlation with CT abdomen/pelvis.
== END 2022-06-14 07:25 | disposition home or self-care (01) ==
LOC: HO.US 07:24
PROVIDERS: PCP Internal Medicine; Visit Provider Internal Medicine
DX: R10.0 Acute abdomen (principal)
CPT/HCPCS: 76700

== ENCOUNTER 2022-08-09 10:39 | Outpatient (REF) | payer MEDICARE, SELFPAY ==
[2022-08-09 13:46] LABS: Alanine Aminotransferase 23 U/L (0-31); Albumin Level 3.8 g/dL (3.5-5.0); Alkaline Phosphatase 61 U/L (39-117); Anion Gap 13 (12-20); Aspartate Amino Transferase 17 U/L (5-31); Bilirubin Total 0.3 mg/dL (0.0-1.0); Blood Urea Nitrogen 19 mg/dL (9-16); Calcium 9.3 mg/dL (8.4-10.2); Carbon Dioxide 27 mmol/L (22-29); Chloride 103 mmol/L (96-108); Estimated Glomerular Filt Rate > 60; Glucose Random 176 mg/dL (60-115); Potassium 4.3 mmol/L (3.3-5.1); Sodium 139 mmol/L (135-145); Total Protein 6.6 g/dL (6.5-8.0)
[2022-08-09 13:48] LABS: Estimated Average Glucose 194 mg/dL; Hemoglobin A1c % 8.4 %
== END 2022-08-09 10:40 | disposition home or self-care (01) ==
LOC: HO.10HDL 10:39
PROVIDERS: Visit Provider Internal Medicine
DX: I12.9 Hypertensive chronic kidney disease with stage 1 through stage 4 chronic kidney disease, or unspecified chronic kidney disease (principal); E11.22 Type 2 diabetes mellitus with diabetic chronic kidney disease; N18.9 Chronic kidney disease, unspecified
CPT/HCPCS: 36415; 80053; 83036

== ENCOUNTER 2022-09-18 16:10 | Outpatient (REF) | payer MEDICARE, SELFPAY ==
[2022-09-18 16:29] LABS: MANUAL DIFF FLAG NO
[2022-09-18 16:49] LABS: Basophils Absolute Auto 0.1 X10*3/uL (0.0-0.2); Basophils Percent Auto 0.7 % (0-2); Eosinophils Absolute Auto 0.2 X10*3/uL (0.0-0.4); Eosinophils Percent Auto 1.5 % (0-4); Hematocrit 37.7 % (37.0-47.0); Imm Gran Abs Auto 0.03 X10*3/uL (0.00-0.03); Imm Gran Pct Auto 0.3 % (0.0-0.4); Lymphocytes Absolute Auto 1.9 X10*3/uL (1.2-4.9); Lymphocytes Percent Auto 18.3 % (20-40); Mean Corpuscular HGB Conc 31.8 g/dl (31.0-35.0); Mean Corpuscular Hemoglobin 25.8 pg (27.0-33.0); Mean Corpuscular Volume 81.1 fL (80.0-98.0); Mean Platelet Volume 9.6 fL (9.4-12.3); Monocytes Absolute Auto 0.9 X10*3/uL (0.1-1.2); Monocytes Percent Auto 8.3 % (2-11); Neutrophils Absolute Auto 7.3 x10*3/uL (2.0-8.3); Neutrophils Percent Auto 70.9 % (45-73); Platelet Count 350 X10*3/uL (160-400); Red Blood Count 4.65 X10*6/uL (4.20-5.50); Red Cell Distribution Width 14.9 % (11.0-16.0); White Blood Count 10.3 X10*3/uL (4.8-10.8)
[2022-09-18 16:56] LABS: Estimated Average Glucose 183 mg/dL
[2022-09-18 17:15] LABS: Alanine Aminotransferase 26 U/L (0-31); Albumin Level 4.1 g/dL (3.5-5.0); Alkaline Phosphatase 67 U/L (39-117); Anion Gap 16 (12-20); Aspartate Amino Transferase 18 U/L (5-31); Bilirubin Total 0.2 mg/dL (0.0-1.0); Blood Urea Nitrogen 22 mg/dL (9-16); C Reactive Protein 0.79 mg/dL (< or = 0.50); Calcium 9.8 mg/dL (8.4-10.2); Carbon Dioxide 26 mmol/L (22-29); Chloride 101 mmol/L (96-108); Estimated Glomerular Filt Rate 53; Glucose Random 209 mg/dL (60-115); Potassium 4.9 mmol/L (3.3-5.1); Sodium 138 mmol/L (135-145); Total Protein 7.6 g/dL (6.5-8.0)
[2022-09-18 17:33] LABS: Vitamin B12 500 pg/mL (200-900)
[2022-09-18 17:34] LABS: Free T4 (Free Thyroxine) 1.03 ng/dL (0.71-1.85); Thyroid Stimulating Hormone 0.26 uIU/mL (0.32-4.0)
[2022-09-18 17:48] LABS: Erythrocyte Sedimentation Rate 36 MM/HR (0-20)
== END 2022-09-18 16:11 | disposition home or self-care (01) ==
LOC: HO.LAB 16:10
PROVIDERS: PCP Internal Medicine; Visit Provider Internal Medicine
DX: R25.1 Tremor, unspecified (principal); E11.9 Type 2 diabetes mellitus without complications; I10 Essential (primary) hypertension
CPT/HCPCS: 36415; 80053; 82550; 82607; 83036; 84439; 84443; 85025; 85652; 86140

== ENCOUNTER 2022-11-09 12:50 | Outpatient (REF) | payer MEDICARE, SELFPAY ==
--- NOTE | ~2022-11-09 | XR_ITS ---
EXAMINATION: XR KNEE, LEFT XR KNEE. STANDING BILATERAL CLINICAL INFORMATION: Left knee pain. COMPARISON: None available. TECHNIQUE: AP standing view of bilateral knees. [place] and lateral views of the left knee. FINDINGS: LEFT KNEE: The bones are diffusely demineralized. Moderate joint effusion. Advanced tricompartmental degenerative changes with tricompartmental osteophytes and loss of joint space most notable in the medial and patellofemoral compartments. Heterogeneous sclerotic density in the diametaphysis of the left femur is difficult to fully evaluate due to overlying patella and technical factors. Vascular calcifications. Possible periosteal reaction along the posterior proximal shaft of the left tibia. AP VIEW OF THE RIGHT KNEE: Moderate degenerative changes with marginal osteophytes and medial joint space narrowing. XR/XR knee standing BI IMPRESSION: Advanced degenerative changes left knee with associated findings as detailed above. Moderate degenerative changes on AP view of the right knee. Additional imaging with CT scan or MRI should be considered for better visualization as these modalities are much more sensitive for detection of fracture or other underlying pathology.
--- NOTE | ~2022-11-09 | XR_ITS ---
EXAMINATION: XR KNEE, LEFT XR KNEE. STANDING BILATERAL CLINICAL INFORMATION: Left knee pain. COMPARISON: None available. TECHNIQUE: AP standing view of bilateral knees. [place] and lateral views of the left knee. FINDINGS: LEFT KNEE: The bones are diffusely demineralized. Moderate joint effusion. Advanced tricompartmental degenerative changes with tricompartmental osteophytes and loss of joint space most notable in the medial and patellofemoral compartments. Heterogeneous sclerotic density in the diametaphysis of the left femur is difficult to fully evaluate due to overlying patella and technical factors. Vascular calcifications. Possible periosteal reaction along the posterior proximal shaft of the left tibia. AP VIEW OF THE RIGHT KNEE: Moderate degenerative changes with marginal osteophytes and medial joint space narrowing. XR/XR knee LT 2V IMPRESSION: Advanced degenerative changes left knee with associated findings as detailed above. Moderate degenerative changes on AP view of the right knee. Additional imaging with CT scan or MRI should be considered for better visualization as these modalities are much more sensitive for detection of fracture or other underlying pathology.
== END 2022-11-09 12:51 | disposition home or self-care (01) ==
LOC: HO.HOSX 12:50
PROVIDERS: Visit Provider Physician Assistant
DX: Z13.89 Encounter for screening for other disorder (principal)

== ENCOUNTER 2022-11-13 08:27 | Outpatient (REF) | payer MEDICARE, SELFPAY | END 2022-11-13 08:28 | disposition home or self-care (01) | LOC: HO.HOSX 08:27 | PROVIDERS: Visit Provider Physician Assistant | DX: M17.12 Unilateral primary osteoarthritis, left knee (principal); E11.9 Type 2 diabetes mellitus without complications | CPT/HCPCS: 20610; 73560; 73565; J1020 ==

== ENCOUNTER 2022-11-13 10:17 | Outpatient (AMB) | payer MEDICARE, SELFPAY ==
[2022-11-13 10:28] VITALS: BMI 44.1
--- NOTE | 2022-11-13 10:28 | MHC.OFFVIS ---
Intake Vital Signs 11/13/22 10:28 Height 5 ft 8 in Weight 290 lb BMI 44.1 Intake Visit Reasons: ov-Left knee OA last inj 11/10/21 Intake Note: Heide is a 72 year old female who presents today for her follow up visit for her left knee pain, last injection 11/10/21. Patient reports last injection provided her relief until about 1-2 weeks ago. She has intermittent pain and is requesting to repeat injections. Allergies No Known Allergies Allergy (Verified 05/03/22 10:37) HPI ov-Left knee OA last inj 11/10/21 HPI Details 72-year-old female who presents in the office today for a follow up of left knee pain. The patient had a left knee cortisone injection on 11/10/2021. She states the last injection gave her relief until 1-2 weeks ago. She reports intermittent pain. She would like a repeat cortisone injection while in the office today. [facility] Medical History (Updated 11/13/22 @ 10:49 by Laya Dockery) Anxiety Arthritis Diabetes Elevated cholesterol HTN (hypertension) Hx of head injury CONCHITA on CPAP Surgical History Hx of bilateral cataract extraction Hx of colonoscopy Social History Alcohol intake: never Patient Tobacco Use Status: Former Tobacco user Current occupational status: retired Current occupation: rt handed Review of Systems Const All systems reviewed & are unremarkable except as noted in HPI and below Physical Exam Vital Signs: BMI result Body Mass Index 44.1 Const General: cooperative, healthy appearing and no acute distress Resp Effort & Inspection: normal respiratory effort and able to speak in complete sentences Cardio Rate: regular rate Peripheral pulses: Peripheral pulses 2+ throughout GI Palpation (GI): Soft to palpation Skin Lesions: no lesions Rashes: no rashes Extrem Other: Left knee: Normal to inspection. No ecchymosis, erythema, or joint effusion. No tenderness to palpation to the medial or lateral joint lines. Full knee extension and flexion. Crepitus felt with ROM. NVI. Office Procedures Joint Injection/Drain Joint Injection/Drain Primary Site: left knee Prep: site was prepped using aseptic technique, ethochloride spray was applied and injection warnings given Injected: 40 mg of, DepoMedrol, with 8 mL of (2% plain lido ) and in the joint Approach Used: anterolateral Procedure: The patient tolerated the procedure well, but had some pain with the injection and there was some relief with the local anesthesia Coding 26806 - Large joint Procedure code (CPT) selection complete Results Reviewed Results Reviewed: 11/13/22 10:33 Lidocaine HCl 2 % MPF [Xylocaine 2 % MPF] 5 ml .ROUTE .STK-MED ONE methylPREDNISolone acetate [DEPO-MedroL] 40 mg .ROUTE .STK-MED ONE Assessment & Plan Assessment & Plan (1) Osteoarthritis of left knee: Code(s): M17.12 - Unilateral primary osteoarthritis, left knee (2) Diabetes: Code(s): E11.9 - Type 2 diabetes mellitus without complications Plan Ms. Romero is a 72-year-old female who presents in the office today for a follow up of left knee pain. The patient had a left knee cortisone injection on 11/10/2021. She states the last injection gave her relief until 1-2 weeks ago. She reports intermittent pain. She would like a repeat cortisone injection while in the office today. The patient was offered a cortisone injection in the left knee with 40 mg of DepoMedrol. The patient was explained the risk, benefits, and alternatives to receiving this injection. After receiving consent for the injection, the patient had the procedure done while in office today. The patient tolerated the procedure well with no complications. Due to the patient?s history of diabetes, they were instructed to monitor her blood glucose level. The patient was informed that they could see a rise in their numbers and if the numbers became too high, they were instructed to call their PCP. The patient was also informed that they could have facial flushing as a side effect of the injection but this will pass. Follow up will be PRN, or sooner if needed. X-rays of the left knee which were obtained while in the office today and were reviewed by me, Aditi Ribeiro PA-C, revealed no evidence of acute fracture or dislocation. Revealed osteoarthritis left knee. Orders: Orders XR knee LT 2V Today M25.569 - Pain in unspecified knee XR knee standing BI Today M25.569 - Pain in unspecified knee Medications: New lidocaine 5% 1 patch topical Q24H 30 ea 1RF Patient Instructions: Scribed for Aditi Ribeiro PA-C by Laya Dockery medical biller/coder, on 11/13/2022 at 10:27 am, EST. Coding Level of Care Code Est Pt Level 4 (94519) Diagnoses Osteoarthritis of left knee M17.12 Diabetes E11.9 CPT Codes Coding - 75193 Large joint: 24382 - Large joint ([id number])
== END 2022-11-13 10:44 | disposition home or self-care (01) ==
PROVIDERS: PCP Internal Medicine; Visit Provider Physician Assistant
DX: M17.12 Unilateral primary osteoarthritis, left knee (principal); E11.9 Type 2 diabetes mellitus without complications
CPT/HCPCS: 20610; 99213

== ENCOUNTER 2022-12-07 09:20 | Emergency (ER) | payer MEDICARE, SELFPAY ==
--- NOTE | ~2022-12-07 | CT_ITS ---
EXAMINATION: CT ABDOMEN AND PELVIS WITHOUT CONTRAST CLINICAL INFORMATION: Right-sided abdominal pain. COMPARISON: Abdominal ultrasound 06/14/2022 TECHNIQUE: Multidetector volumetric imaging was performed from the superior aspect of the liver through the pubic symphysis. Sagittal and coronal reformatted images were obtained on the technologist's workstation. This CT examination was performed using dose optimization techniques as appropriate, variously including the following: *Automated exposure control *Adjustment of mA and/or kV according to patient size (this includes techniques or standardized protocols for targeted exams where dose is matched to indication/reason for exam; i.e. extremities or head) *Use of iterative reconstruction technique DLP: 1117 mGy-cm FINDINGS: LUNG BASES: The visualized lung bases are unremarkable. LIVER, GALLBLADDER, AND BILIARY TREE: The noncontrast liver is decreased in attenuation. No biliary ductal dilatation is present. The gallbladder is unremarkable with no evidence of radiopaque gallstones, gallbladder wall thickening, or obvious pericholecystic inflammatory changes. PANCREAS: No ductal dilatation. SPLEEN: Not enlarged. ADRENAL GLANDS: 1.3 cm left adrenal adenoma. KIDNEYS AND URETERS: The kidneys are symmetric in size. No renal calculus. No hydronephrosis or perinephric stranding. BLADDER: Unremarkable. GASTROINTESTINAL TRACT: Small and large bowel loops are of normal caliber. No small bowel obstruction. Diverticular disease of the sigmoid colon. ABDOMINAL WALL: Small fat-containing umbilical hernia. LYMPH NODES: No bulky abdominal or pelvic lymphadenopathy. VASCULAR: Normal caliber abdominal aorta. PELVIC VISCERA: The uterus and adnexa are unremarkable. OSSEOUS STRUCTURES: No destructive bone lesions. CT/CT abdomen pelvis wo IV con IMPRESSION: No acute abnormality in the abdomen or pelvis. Hepatic steatosis. 1.3 cm left adrenal adenoma.
[2022-12-07 09:51] VITALS: BP 190/72; PULSE 85; RESP 16; TEMP 36.3; O2SAT 96; BMI 41.0
[2022-12-07 10:14] LABS: MANUAL DIFF FLAG NO
[2022-12-07 10:17] LABS: Basophils Absolute Auto 0.1 X10*3/uL (0.0-0.2); Basophils Percent Auto 0.7 % (0-2); Eosinophils Absolute Auto 0.2 X10*3/uL (0.0-0.4); Hematocrit 38.5 % (37.0-47.0); Hemoglobin 12.4 g/dl (12.0-16.0); Imm Gran Abs Auto 0.07 X10*3/uL (0.00-0.03); Imm Gran Pct Auto 0.7 % (0.0-0.4); Lymphocytes Absolute Auto 1.4 X10*3/uL (1.2-4.9); Lymphocytes Percent Auto 14.1 % (20-40); Mean Corpuscular HGB Conc 32.2 g/dl (31.0-35.0); Mean Corpuscular Hemoglobin 26.6 pg (27.0-33.0); Mean Corpuscular Volume 82.6 fL (80.0-98.0); Mean Platelet Volume 9.2 fL (9.4-12.3); Monocytes Absolute Auto 0.6 X10*3/uL (0.1-1.2); Monocytes Percent Auto 6.1 % (2-11); Neutrophils Absolute Auto 7.6 x10*3/uL (2.0-8.3); Neutrophils Percent Auto 76.4 % (45-73); Platelet Count 305 X10*3/uL (160-400); Red Blood Count 4.66 X10*6/uL (4.20-5.50)
[2022-12-07 10:29] LABS: Alanine Aminotransferase 22 U/L (0-31); Albumin Level 4.1 g/dL (3.5-5.0); Alkaline Phosphatase 55 U/L (39-117); Anion Gap 14 (12-20); Aspartate Amino Transferase 17 U/L (5-31); Bilirubin Total 0.3 mg/dL (0.0-1.0); Blood Urea Nitrogen 22 mg/dL (9-16); Calcium 9.9 mg/dL (8.4-10.2); Carbon Dioxide 28 mmol/L (22-29); Chloride 103 mmol/L (96-108); Creatinine Clr Calc Pharmacy 73.3; Estimated Glomerular Filt Rate 55; Glucose Random 192 mg/dL (60-115); Potassium 4.8 mmol/L (3.3-5.1); Sodium 140 mmol/L (135-145); Total Protein 7.4 g/dL (6.5-8.0)
[2022-12-07 11:19] LABS: Appearance Urine Cloudy; Color Urine Yellow; Glucose Urine UA Negative (Negative); Leukocyte Esterase Urine Moderate (2+) (Negative); Nitrite Urine Negative (Negative); UMIC TRIGGER UACC YES; Urine Blood Moderate (2+) (Negative); Urine Ketones Negative (Negative); Urine Protein Trace mg/dL (Neg-Trace)
[2022-12-07 13:36] LABS: Bacteria Urine Trace (None Seen); Hyaline Casts Urine 0-2 /LPF (0-2); RBC Urine >20 /HPF (0-2); UACC Culture Trigger YES
[2022-12-07 14:41] LABS: Glucose, Whole Blood 106 mg/dL (60-115)
--- NOTE | 2022-12-07 16:04 | ED_ITS ---
HPI - Abdominal Pain General Chief Complaint: Abdominal Pain Stated Complaint: lower r side abd pain Time Seen by Provider: 12/07/22 16:12 Source: patient and RN notes reviewed Mode of arrival: ambulatory Limitations: no limitations History of Present Illness HPI narrative: This is a 72-year-old female, with a past medical history of diabetes, hyperlipidemia, and hypertension, presenting to the emergency department with complaints of right-sided flank pain since yesterday. Patient denies any recent trauma or injury to her back or abdomen. She states that she was at she suddenly this pain. She states that the pain has been constant and occasionally radiates into her right side of her abdomen. She states that she is otherwise feeling well. Denies any fevers, chills, chest pain, shortness of breath, palpitations, nausea, vomiting, diarrhea or constipation. She denies any dysuria, hematuria, urinary urgency. She endorses urinary frequency but reports that she is a diabetic and is typical of her. Denies history of abdominal surgeries. Denies history of kidney stones. She states she last moved her bowels this morning, denies bloody or black stool. No other complaints or concerns at this time. MD elicited complaint: flank pain Pertinent past history: none Pain Consistency: constant Location: R flank Severity: severe Quality: aching Radiation: RLQ Exacerbating factors: nothing Relieving factors: nothing Associated symptoms: denies other symptoms Related Data Home Medications Medication Instructions Recorded Confirmed citalopram 10 mg tablet 10 mg PO DAILY 02/14/21 07/14/21 ketorolac 0.5 % eye drops 1 drp ophthalmic (eye) TID 02/14/21 07/14/21 lisinopril 20 mg tablet 20 mg PO BID 02/14/21 07/14/21 metformin 500 mg tablet 1,000 mg PO BID 02/14/21 07/14/21 simvastatin 10 mg tablet 10 mg PO BEDTIME 02/14/21 07/14/21 aspirin 81 mg chewable tablet 81 mg PO DAILY 07/14/21 07/14/21 cholecalciferol (vitamin D3) 125 125 mcg PO DAILY 07/14/21 07/14/21 mcg (5,000 unit) tablet (Vitamin D3) multivitamin 1 tab PO BID 07/14/21 07/14/21 amlodipine 2.5 mg tablet 2.5 mg PO DAILY 11/13/22 glipizide 5 mg tablet, extended 5 mg PO BID 11/13/22 release 24 hr hydrochlorothiazide 12.5 mg capsule 12.5 mg PO DAILY 11/13/22 Previous Rx's Medication Instructions Recorded doxycycline monohydrate 100 mg 100 mg PO BID 7 days #14 tabs 05/03/22 tablet lidocaine 5 % topical patch 1 patch topical Q24H #30 ea 11/13/22 cefuroxime axetil 250 mg tablet 250 mg PO BID 7 days #14 tabs 12/07/22 lidocaine 5 % topical patch 1 patch topical DAILY #30 ea 12/07/22 (Lidoderm) naproxen 500 mg tablet 500 mg PO BID PRN pain #30 tabs 12/07/22 Allergies Allergy/AdvReac Type Severity Reaction Status Date / Time No Known Allergies Allergy Verified 05/03/22 10:37 Review of Systems Review of Systems Yes all other systems are reviewed and are negative Constitutional: Reports as per [facility] Past Medical History Attestation statement: The following information was validated with the patient. Medical History (Updated 12/07/22 @ 18:17 by LAMONT Ruano) Hx of head injury Arthritis Elevated cholesterol Anxiety CONCHITA on CPAP Diabetes HTN (hypertension) Surgical History Hx of bilateral cataract extraction Hx of colonoscopy Social History Social History Alcohol intake: never Patient Tobacco Use Status: Former Tobacco user Advance Directives: No Advance Directives Information Provided: No Current occupational status: retired Current occupation: rt handed Physical Exam ED Vital Signs: Vital Signs - 24 hr 12/07/22 09:51 12/07/22 16:05 Temperature 97.4 F 98.0 F Pulse Rate 85 81 Respiratory Rate 16 18 Blood Pressure 190/72 H 134/77 Pulse Oximetry 96 97 Oxygen Delivery Method Room Air Room Air BMI result Body Mass Index 41.0 Const General: cooperative, comfortable and no acute distress Orientation/consciousness: patient oriented x3 Limitations: no limitations HENMT Head: Yes normal to inspection, Yes normocephalic and Yes atraumatic Ears: hearing grossly normal bilaterally General nose exam: Normal external nose present Face and sinus: Yes normal facial exam Mouth: Normal oral and palatal mucosa present, oropharynx normal and moist mucous membranes Throat: Yes posterior oropharynx normal Eyes General: appearance normal, both eyes and all related structures Eyelids: Yes eyelids normal Conjunctivae: conjunctivae normal Sclerae: sclerae normal Pupils: Equal, round and reactive pupils present EOM: EOMs intact bilaterally Neck Neck: Yes normal visual inspection, Yes full ROM and Yes no lymphadenopathy Lymphatic: no lymphadenopathy noted Chest Chest palpation & inspection: normal inspection of the chest Resp Effort & Inspection: normal respiratory effort and able to speak in complete sentences Auscultation: clear to auscultation bilaterally, no crackles, no rales, no rhonchi and no wheezes Cardio Rate: regular rate Rhythm: regular rhythm Heart sounds: S1 normal heart sound present and S2 normal heart sound present GI Other: Abdomen is soft, nontender, nondistended, no right lower quadrant tenderness. No rebound or guarding. Normoactive bowel sounds present in all 4 quadrants. Inspection: Yes normal to inspection Back/Spine/Pelvis Other: No CVA tenderness Skin General skin exam: no rashes or lesions noted Trauma: no lacerations or abrasions Wounds: no wounds Neuro General: patient oriented x3 and moves all extremities Cranial nerves: Yes Equal, round and reactive pupils present Extrem General: Yes normal to inspection Right upper extremity: normal to inspection Left upper extremity: normal to inspection Right lower extremity: normal to inspection Left lower extremity: normal to inspection Course Course Course Narrative: RME 16PM - 72yoF presenting with right-sided back/flank/right lower quadrant abdominal pain that started yesterday. She denies any fevers, nausea vomiting, dysuria hematuria or any other symptoms complaints or concerns at this time. Patient already had labs while she was in the waiting room before I arrived patient's BUN 22, random glucose 196 otherwise all other labs are within normal limits. UA revealed blood in white blood cells although negative nitrates. Plan: CT scan abdomen pelvis without IV contrast pending at this time patient will be seen in [facility] for further evaluation treatment. Patient is stable. Reevaluation(s) Reevaluation #1: CT abdomen and pelvis revealing a adrenal adenoma. I discussed these results with patient who will follow-up with her primary care physician tomorrow. It is unclear what is causing her right-sided flank pain but given patient is afebrile, with no right-sided CVA tenderness and no abdominal tenderness. Patient can be discharged. Given urine is contaminated however with leuk esterases blood wbc's, I will treat for urinary tract infection. Patient given return precautions. Patient stable for discharge. Time: 18:25 Medical Decision Making Medical Decision Making MDM Narrative: 72-year-old female, with a past medical history of hypertension, hyperlipidemia, and diabetes, presenting to the emergency department with complaints of right flank pain which started yesterday. On arrival at 9:51 a.m. in the morning, blood pressure elevated at 190/72. Repeat vital signs performed at 4:05p.m. Repeat blood pressure improved to 134/77, patient is afebrile and nontoxic- appearing. Patient was evaluated at 1630, patient is nontoxic appearing, afebrile, appears to be in mild distress secondary to right-sided flank pain. On examination, patient has mild right-sided CVA tenderness, abdomen is soft and nontender. Differential diagnoses include nephrolithiasis, obstructive uropathy, hydronephrosis, urinary tract infection, constipation, bowel obstruction. Labs are performed, patient has no leukocytosis, stable H&H, BUN slightly elevated at 22, when he care 192. Urinalysis with moderate blood, moderate leuk esterases and wbc's. Does have some squamous epithelial cells therefore been catch urine sample was not achieved. Does not appear to be infected. Abdominal CT was performed and results are pending at this time. Differential Diagnosis Differential Diagnoses: The differential diagnosis associated with the presentation includes See above Admission/Observation Consideration of admission/observation: Escalation of care including admission/observation considered Patient would have been admitted to the hospital had her work up had any findings where hospital admission was appropriate and her clinical presentation warranted hospital admission. Lab Data MDM Lab Attestation statement: I reviewed the patient's lab results. See above 12/07/22 10:05 12/07/22 10:05 Labs: Lab Results 12/07/22 12/07/22 12/07/22 Range/Units 10:05 11:02 14:33 WBC 10.0 (4.8-10.8) X10*3/uL RBC 4.66 (4.20-5.50) X10*6/uL Hgb 12.4 (12.0-16.0) g/dl Hct 38.5 (37.0-47.0) % MCV 82.6 (80.0-98.0) fL MCH 26.6 L (27.0-33.0) pg MCHC 32.2 (31.0-35.0) g/dl RDW 15.0 (11.0-16.0) % Plt Count 305 (160-400) X10*3/uL MPV 9.2 L (9.4-12.3) fL Immature Gran % (Auto) 0.7 H (0.0-0.4) % Neut % (Auto) 76.4 H (45-73) % Lymph % (Auto) 14.1 L (20-40) % [place] % (Auto) 6.1 (2-11) % Eos % (Auto) 2.0 (0-4) % Baso % (Auto) 0.7 (0-2) % Lymph # (Auto) 1.4 (1.2-4.9) X10*3/uL [place] # (Auto) 0.6 (0.1-1.2) X10*3/uL Eos # (Auto) 0.2 (0.0-0.4) X10*3/uL Baso # (Auto) 0.1 (0.0-0.2) X10*3/uL Abs Immat Gran (auto) 0.07 H (0.00-0.03) X10*3/uL Absolute Neuts (auto) 7.6 (2.0-8.3) x10*3/uL Absolute Nucleated RBC 0.000 (0.0-0.012) X10*3/uL Nucleated RBC % (auto) 0.0 (0.0-0.2) /100WBC Sodium 140 (135-145) mmol/L Potassium 4.8 (3.3-5.1) mmol/L Chloride 103 (96-108) mmol/L Carbon Dioxide 28 (22-29) mmol/L Anion Gap 14 (12-20) BUN 22 H (9-16) mg/dL Creatinine 1.00 (0.5-1.4) mg/dL Estim Creat Clear Calc 73.3 Estimated GFR 55 POC Glucose 106 (60-115) mg/dL Random Glucose 192 H (60-115) mg/dL Calcium 9.9 (8.4-10.2) mg/dL Total Bilirubin 0.3 (0.0-1.0) mg/dL AST 17 (5-31) U/L ALT 22 (0-31) U/L Alkaline Phosphatase 55 (39-117) U/L Total Protein 7.4 (6.5-8.0) g/dL Albumin 4.1 (3.5-5.0) g/dL Urine Color Yellow Urine Appearance Cloudy Urine pH 6.0 (5.0-9.0) Ur Specific [place] 1.020 (1.005-1.025) Urine Protein Trace (Neg-Trace) mg/dL Urine Glucose (UA) Negative (Negative) mg/dL Urine Ketones Negative (Negative) mg/dL Urine Blood Moderate (2+) H (Negative) Urine Nitrite Negative (Negative) Ur Leukocyte Esterase Moderate (2+) H (Negative) Urine RBC >20 H (0-2) /HPF Urine WBC 11-20 H (0-5) /HPF Ur Squamous Epith Cells 6-10 (0-2) /HPF Urine Bacteria Trace (None Seen) Hyaline Casts 0-2 (0-2) /LPF Radiology Impression Discussion of test interpretation with radiology: I have reviewed the radiologist's reading. External Record Review External record reviewed: Inpatient record, Office record, Outpatient record, Prior outpatient labs, Prior outpatient radiology, Primary care record and Outside ED record Medications Administered Discontinued Medications Generic Name Dose Route Start Last Admin Trade Name Freq PRN Reason Stop Dose Admin Sodium Chloride 1,000 mls @ 999 mls/hr 12/07/22 16:34 12/07/22 16:51 Ns IV 12/07/22 17:34 999 mls/hr .Q1H1M ONE Administration Ketorolac Tromethamine 30 mg 12/07/22 16:33 12/07/22 16:52 Ketorolac Tromethamine 30 Mg/Ml Vial IVPUSH 12/07/22 16:34 30 mg ONCE ONE Administration Discharge Plan Discharge Clinical Impression: Acute flank pain, Urinary tract infection, Adrenal adenoma Patient Disposition: Home, Self-Care Instructions: Urinary Tract Infection in Women (ED), Flank Pain (ED) Additional Instructions: Your CT scan shows a 1.3 cm left adrenal adenoma. You need to follow-up with your primary care physician regarding this finding. This is not causing you to have your symptoms. It is unclear what is causing her symptoms however do not have a kidney stone. Your urine was suspicious for possible passed kidney stone or an infection, I am treating with antibiotics. Please take the entire course even if your feeling better. Drink plenty of fluids get plenty of rest. If any new or worsening symptoms occur please return for re-evaluation. Prescriptions: New cefuroxime axetil 250 mg tablet 250 mg PO BID 7 Days Qty: 14 0RF lidocaine [Lidoderm] 5 % adhesive patch,medicated 1 patch topical DAILY Qty: 30 0RF Rx Instructions: leave on most painful area for up to 12 hrs naproxen 500 mg tablet 500 mg PO BID PRN (Reason: pain) Qty: 30 0RF No Action doxycycline monohydrate 100 mg tablet 100 mg PO BID 7 Days Qty: 14 0RF multivitamin [One A Day Vitamin] Tablet 1 tab PO BID aspirin 81 mg Tablet,Chewable 81 mg PO DAILY cholecalciferol (vitamin D3) [Vitamin D3] 125 mcg (5,000 unit) Tablet 125 mcg PO DAILY citalopram 10 mg tablet 10 mg PO DAILY lisinopril 20 mg tablet 20 mg PO BID simvastatin 10 mg tablet 10 mg PO BEDTIME metformin 500 mg tablet 1,000 mg PO BID ketorolac 0.5 % drops 1 drp ophthalmic (eye) TID hydrochlorothiazide 12.5 mg capsule 12.5 mg PO DAILY amlodipine 2.5 mg tablet 2.5 mg PO DAILY glipizide 5 mg tablet extended release 24hr 5 mg PO BID lidocaine 5 % adhesive patch,medicated 1 patch topical Q24H Qty: 30 1RF
[2022-12-07 16:05] VITALS: BP 134/77; PULSE 81; RESP 18; TEMP 36.7; O2SAT 97
[2022-12-07] MEDS: 0.9 % Sodium Chloride 1,000 ML 999 ML IV (16:51)
[2022-12-07] MEDS: Ketorolac Tromethamine 30 MG/ML VIAL IVPUSH (16:52)
== END 2022-12-07 18:33 | disposition home or self-care (01) ==
PROVIDERS: Emergency Provider Emergency Medicine; PCP Internal Medicine
DX: R10.31 Right lower quadrant pain (principal); N39.0 Urinary tract infection, site not specified; D35.02 Benign neoplasm of left adrenal gland; Z79.899 Other long term (current) drug therapy
CPT/HCPCS: 36415; 74176; 80053; 81001; 82947; 85025; 87086; 96374; 99284; J1885

== ENCOUNTER 2023-01-16 10:42 | Outpatient (REF) | payer MEDICARE, SELFPAY ==
--- NOTE | ~2023-01-16 | XR_ITS ---
EXAMINATION: XR LUMBOSACRAL SPINE CLINICAL INFORMATION: Low back pain COMPARISON: None available. TECHNIQUE: Three views of the lumbosacral spine. FINDINGS: There are 5 not ribs bearing vertebral bodies and lumbar spine. Vertebral bodies are well aligned without evidence of spondylolysis or spondylolisthesis. There is narrowing of L4-L5 of intervertebral disc space and there is minimal marginal spurring along the vertebral bodies at the level of L1-S1. There is facets arthropathy seen in the L4-L5 and L5-S1. Soft tissues are unremarkable in sacroiliac joints are normal. XR/XR lumbar spine 2-3V IMPRESSION: Mild multilevel degenerative changes as described.
== END 2023-01-16 10:43 | disposition home or self-care (01) ==
LOC: HO.XRAY 10:42
PROVIDERS: PCP Internal Medicine; Visit Provider Internal Medicine
DX: M54.50 Low back pain, unspecified (principal)
CPT/HCPCS: 72100

== ENCOUNTER 2023-05-02 06:24 | Outpatient (REF) | payer MEDICARE, SELFPAY ==
[2023-05-02 11:24] LABS: MANUAL DIFF FLAG NO
[2023-05-02 11:41] LABS: Basophils Absolute Auto 0.1 X10*3/uL (0.0-0.2); Basophils Percent Auto 0.5 % (0-2); Eosinophils Absolute Auto 0.4 X10*3/uL (0.0-0.4); Eosinophils Percent Auto 4.1 % (0-4); Hematocrit 37.8 % (37.0-47.0); Imm Gran Abs Auto 0.04 X10*3/uL (0.00-0.03); Imm Gran Pct Auto 0.4 % (0.0-0.4); Lymphocytes Percent Auto 31.3 % (20-40); Mean Corpuscular HGB Conc 31.7 g/dl (31.0-35.0); Mean Corpuscular Hemoglobin 26.8 pg (27.0-33.0); Mean Corpuscular Volume 84.6 fL (80.0-98.0); Mean Platelet Volume 10.3 fL (9.4-12.3); Monocytes Absolute Auto 0.8 X10*3/uL (0.1-1.2); Monocytes Percent Auto 8.5 % (2-11); Neutrophils Absolute Auto 5.3 x10*3/uL (2.0-8.3); Neutrophils Percent Auto 55.2 % (45-73); Platelet Count 332 X10*3/uL (160-400); Red Blood Count 4.47 X10*6/uL (4.20-5.50); Red Cell Distribution Width 14.1 % (11.0-16.0); White Blood Count 9.6 X10*3/uL (4.8-10.8)
[2023-05-02 11:56] LABS: Alanine Aminotransferase 20 U/L (0-31); Albumin Level 3.8 g/dL (3.5-5.0); Alkaline Phosphatase 49 U/L (39-117); Anion Gap 13 (12-20); Aspartate Amino Transferase 17 U/L (5-31); Bilirubin Total 0.3 mg/dL (0.0-1.0); Blood Urea Nitrogen 23 mg/dL (9-16); Calcium 9.3 mg/dL (8.4-10.2); Carbon Dioxide 27 mmol/L (22-29); Chloride 104 mmol/L (96-108); Cholesterol 150 mg/dL (<200); Estimated Glomerular Filt Rate 54; Glucose Fasting 133 mg/dL (60-99); HDL Cholesterol 62 mg/dL (>40); LDL Cholesterol Calculated 60 mg/dL (<100); Potassium 4.3 mmol/L (3.3-5.1); Sodium 140 mmol/L (135-145); Total Protein 7.1 g/dL (6.5-8.0); Triglycerides 143 mg/dL (<150)
[2023-05-02 12:00] LABS: Estimated Average Glucose 166 mg/dL; Hemoglobin A1c % 7.4 % (<6.0)
[2023-05-02 12:41] LABS: Creatinine Urine 93.71 mg/dL; Microalbum/Creatinine Ratio Ur 9.6 ug/mg cr (<30)
== END 2023-05-02 06:25 | disposition home or self-care (01) ==
LOC: HO.HMGCLDS 06:24
PROVIDERS: PCP Internal Medicine; Visit Provider Internal Medicine
DX: E11.22 Type 2 diabetes mellitus with diabetic chronic kidney disease (principal); I12.9 Hypertensive chronic kidney disease with stage 1 through stage 4 chronic kidney disease, or unspecified chronic kidney disease; E78.00 Pure hypercholesterolemia, unspecified; N18.9 Chronic kidney disease, unspecified
CPT/HCPCS: 36415; 80053; 80061; 82043; 82570; 83036; 85025

== ENCOUNTER → 2023-06-14 08:48 | Outpatient (REF) | payer MEDICARE, SELFPAY ==
--- NOTE | ~2023-06-14 | US_ITS ---
EXAMINATION: US EXTRACRANIAL CAROTID DUPLEX, BILATERAL CLINICAL INFORMATION: Carotid bruit COMPARISON: None available. TECHNIQUE: Real-time ultrasound and Doppler techniques (integrating B-mode 2-D vascular images, Doppler spectral analysis and color-flow Doppler imaging) were utilized to interrogate the extracranial carotid arteries, the vertebral arteries and proximal subclavian arteries bilaterally. The degree of stenosis is determined by criteria similar to NASCET. FINDINGS: Right Side: 1. There is no significant atherosclerotic plaque seen in the bifurcation/proximal ICA region. 2. The common carotid artery PSV proximally is 112 cm/s and distally 51.4 cm/s. 3. The proximal internal carotid artery velocities are 45.2 cm/s systolic and 9.8 cm/s diastolic. 4. The proximal external carotid artery PSV is 77.2 cm/s. 5. The vertebral artery shows antegrade flow. 6. The subclavian artery waveforms are normal. 7. Incidental note made of a large solid right thyroid nodule which is incompletely evaluated but measuring approximately 3.6 cm Left Side: 1. There is no significant atherosclerotic plaque seen in the bifurcation/proximal ICA region. 2. The common carotid artery PSV proximally is 85.1 cm/s and distally 70.3 cm/s. 3. The proximal internal carotid artery velocities are 74.3 cm/s systolic and 17.9 cm/s diastolic. 4. The proximal external carotid artery PSV is 85.2 cm/s. 5. The vertebral artery shows antegrade flow. 6. The subclavian artery waveforms are normal. US/US carotid duplex BI IMPRESSION: 1. RIGHT: Normal right internal carotid artery without atherosclerotic plaque or hemodynamically significant stenosis. 2. LEFT: Normal left internal carotid artery without atherosclerotic plaque or hemodynamically significant stenosis. 3. Incidental note of right thyroid nodule measuring at least 3.6 cm. Based on the recommendations of the ACR Incidental Thyroid Findings Committee (JACR 2014; 12(2):143-50), further evaluation by thyroid ultrasound is recommended for solitary incidental thyroid nodules greater than or equal to 1.5 cm in largest axial dimension in patients age 35 years and older who do not have limited life expectancy or significant morbidities, unless clinically warranted.
--- NOTE | 2023-06-14 08:51 | CA_ITS ---
Transthoracic Echocardiogram Patient (Last, First, Middle): Heide Romero, Gender: Female Date of : 1950 Age: 73 Procedure Date: 06/14/2023 Procedure Type: Transthoracic Echocardiogram Location: OP Height: 172. cm Weight: 131.54 kg BSA: 2.39 m2 Heart Rate: bpm BP: 185 / 70 mmHg Data Sciences Director: ANDRESSA Referring MD: Roscoe Rahman MD Boiler Shop Supervisor: Allen Wallis MD Symptoms: Heart disease, unspecified Study Quality: Adequate with contrast ECG Rhythm: Sinus Conclusions: - 1. Technically limited study despite use of contrast agent 2. Normal LV ejection fraction 55-60% with mild LVH with impaired relaxation filling pattern 3. Early mild aortic stenosis Findings Procedure Information Contrast agent, definity, is being given per protocol without apparent complications. Left Ventricle Normal left ventricular size and systolic function. There is mildly increased left ventricular wall thickness. The visually estimated ejection fraction is between 55-60%. Spectral Doppler is indicative of an impaired relaxation filling pattern. E/E prime ratio is between 8 and 15 consistent with indeterminate filling pressures. Right Ventricle The right ventricle was not well visualized. Atria The left atrium is normal in size. Interatrial shunt cannot be excluded. The right atrium is normal in size. Aortic Valve The aortic valve was not well visualized. There is mild calcification of the aortic valve. There is mild aortic valve stenosis. There is no aortic valve regurgitation. Mitral Valve There is mild anterior and posterior mitral leaflet thickening. There is mild mitral annular calcification. There is no mitral valve regurgitation. There is no mitral valve stenosis. Pulmonic Valve The pulmonic valve was not well visualized. Tricuspid Valve The tricuspid valve was not well visualized. Tricuspid regurgitation envelope is inadequate for calculation of right ventricular systolic pressure. Indeterminate right atrial pressure. Great Vessels The aorta was not well visualized. The pulmonary artery was not well visualized. There is no dilatation of the ascending aorta measuring 3.20 cm. Venous The inferior vena cava was not well visualized. Pericardium/Pleural There is no evidence of pericardial effusion. Prior Study Comparison No prior study available for comparison. Measurements 2D Linear Measurements IVSd: 1.18 0.6-0.9/0.6-1.0 cm LVIDd: 4.82 3.9-5.3/4.2-5.9 cm LVIDd Index: 2.02 2.4-3.2/2.2-3.1 cm/m2 LVIDs: 2.56 2.0-3.6 cm LVPWd: 1.12 0.7-1.1 cm LA Diam: 3.70 2.7-3.8/3.0-4.0 cm LAIDs Index: 1.55 1.5-2.3 cm/m2 LV Mass: 258.92 67-162/88-224 g LV Mass Index: 108.34 43-95/49-115 g/m2 LVOT Diam: 2.00 3.0+(-)1.3 cm 2D Systolic Function EF 4C: 60.40 >55% EF 2C: 53.80 >55% EF BiP: 58.20 >55% Mitral Valve MV Pk E: 1.05 MV PK A: 0.90 MV Decel Time: 216.00 E/A: 1.20 E'Lateral: 10.60 E'Medial: 7.62 E/E' Med: 13.80 E/E' Lat: 9.90 PHT: 63.00 MVA PHT: 3.49 Decel Plumas: 4.87 Aortic Valve AoV Pk Eduard: 1.88 AoV Mn Eduard: 1.39 AoV VTI: 0.47 AoV Pk Grad: 14.00 Aov Mn Grad: 9.00 MAILE Cont.VTI: 2.17 LVOT LVOT Pk Eduard: 1.30 LVOT Mn Eduard: 0.98 LVOT VTI: 0.32 LVOT Pk Grad: 7.00 LVOT Mn Grad: 4.00 LVOT Diam: 2.00 LVOT Area: 3.14 Diastolic Function MV Pk E: 1.05 MV Pk A: 0.90 E/A: 1.20 E'Medial: 7.62 E/E' Med: 13.80 E' Laterial: 10.60 E/E' Lat: 9.90 Right Ventricle TAPSE (mm): 29.50 TVS' Eduard: 11.60 Tricuspid Valve TR Pk Eduard: 2.09 TR Pk Grad: 17.00 Great Vessels Aorta Sinus of Valsalva: 3.20 2.0-3.5 cm Ao Asc: 3.20 2.1-3.4 cm Pulmonary Valve PV Pk Eduard: 1.02 Peak PV Grad: 4.00 Updated in Other Vendor System with Status of Final Allen Wallis MD electronically signed on 06/15/2023 3:59:54 PM with status of Final
== END ==
LOC: HO.CARD 08:48
PROVIDERS: PCP Internal Medicine; Visit Provider Internal Medicine
DX: R09.89 Other specified symptoms and signs involving the circulatory and respiratory systems (principal); I51.9 Heart disease, unspecified
CPT/HCPCS: 93306; 93880; Q9957

== ENCOUNTER → 2023-06-14 08:51 | Outpatient (BNV) | payer MEDICARE, SELFPAY | PROVIDERS: PCP Internal Medicine; Visit Provider Internal Medicine Cardiovascular Disease | DX: I35.0 Nonrheumatic aortic (valve) stenosis (principal) | CPT/HCPCS: 93306 ==

== ENCOUNTER 2023-07-02 10:18 | Outpatient (REF) | payer MEDICARE, SELFPAY ==
--- NOTE | ~2023-07-02 | US_ITS ---
EXAMINATION: US THYROID CLINICAL INFORMATION: Right thyroid nodule. COMPARISON: Carotid ultrasound 06/14/2023. TECHNIQUE: Linear transducer grayscale and color Doppler examination with attention to the region of the thyroid. FINDINGS: SIZE: Measurements of the thyroid lobes and nodules are given in sagittal, anteroposterior and transverse dimensions respectively. Right Thyroid Lobe: 6.6 x 4.7 x 3.2 cm, volume 46.8 mL. Parenchyma: The gland echotexture is heterogeneous. Thyroid vascularity is normal. Left Thyroid Lobe: 5.3 x 2.3 x 3.4 cm, volume 21.2 mL. Parenchyma: The gland echotexture is heterogeneous. Thyroid vascularity is normal. Isthmus: 1.3 cm in maximum AP dimension. Estimated total number of nodules greater than or equal to 1 cm: 4. City Driver nodules are described as follows: 1. Location: Right mid pole. Size: 0.8 x 0.8 x 1.2 cm, volume 0.46 mL. Nodule characteristics: Composition: Solid/almost completely solid (2). Echogenicity: Isoechoic (1). Shape: Not taller than wide (0). Margins: Ill-defined (0). Echogenic Foci: Macrocalcifications (1). ACR TI-RADS total points: 4 ACR TI-RADS category: 4 2. Location: Right mid pole. Size: 1.7 x 1.5 x 1.4 cm, volume 1.9 mL. Nodule characteristics: Composition: Solid/almost completely solid (2). Echogenicity: Hypoechoic (2). Shape: Taller than wide (3). Margins: Ill-defined (0). Echogenic Foci: None (0). ACR TI-RADS total points: 7 ACR TI-RADS category: 5 3. Location: Right lower pole. Size: 3.9 x 4.2 x 3.9 cm, volume 33.4 mL. Nodule characteristics: Composition: Solid/almost completely solid (2). Echogenicity: Isoechoic (1). Shape: Taller than wide (3). Margins: Ill-defined (0). Echogenic Foci: None (0). ACR TI-RADS total points: 6 ACR TI-RADS category: 4 4. Location: Left mid pole. Size: 1.5 x 1.6 x 2.2 cm, volume 2.87 mL. Nodule characteristics: Composition: Solid/almost completely solid (2). Echogenicity: Isoechoic (1). Shape: Not taller than wide (0). Margins: Ill-defined (0). Echogenic Foci: Macrocalcifications (1). ACR TI-RADS total points: 4 ACR TI-RADS category: 4 5. Location: Left mid pole. Size: 2.2 x 2.4 x 2.1 cm, volume 5.9 mL. Nodule characteristics: Composition: Solid/almost completely solid (2). Echogenicity: Isoechoic (1). Shape: Taller than wide (3). Margins: Ill-defined (0). Echogenic Foci: None (0). ACR TI-RADS total points: 6 ACR TI-RADS category: 4 NODES: No lymphadenopathy is seen in the tissue surrounding the thyroid gland. US/US thyroid IMPRESSION: 1. A 1.7 cm mid right thyroid lobe TR 5 nodule and a 3.9 cm lower pole right thyroid lobe TR 4 nodule both meet ACR biopsy criteria and are amenable to ultrasound-guided biopsy, if clinically indicated and not already performed. 2. There is a diffuse goiter. 3. There is heterogeneous thyroid echotexture, which can be associated with thyroiditis. ACR TI-RADS RECOMMENDATION REFERENCE: Ultrasound-guided fine-needle aspiration, followup ultrasound, no further follow up. * TR1 (0 point) and TR2 (2 points): No FNA or follow up. * TR3 (3 points): FNA if more than or equal to 2.5 cm in maximum dimension, followup ultrasound in 1, 3 and 5 years if 1.5 to 2.4 cm in maximum dimension. * TR4 (4-6 points): FNA if more than or equal to 1.5 cm in maximum dimension, followup ultrasound in 1, 2, 3 and 5 years if 1 to 1.4 cm in maximum dimension. * TR5 (more than or equal to 7 points): FNA if more than or equal to 1 cm in maximum dimension, followup ultrasound every year for 5 years if 0.5 to 0.9 cm in maximum dimension. * TR3, TR4 or TR5 nodules that are below the size threshold for followup receive no follow up.
[2023-07-02 11:44] LABS: MANUAL DIFF FLAG NO
[2023-07-02 12:36] LABS: Basophils Absolute Auto 0.1 X10*3/uL (0.0-0.2); Basophils Percent Auto 0.8 % (0-2); Eosinophils Absolute Auto 0.2 X10*3/uL (0.0-0.4); Eosinophils Percent Auto 2.8 % (0-4); Hematocrit 38.6 % (37.0-47.0); Hemoglobin 12.5 g/dl (12.0-16.0); Imm Gran Abs Auto 0.05 X10*3/uL (0.00-0.03); Imm Gran Pct Auto 0.6 % (0.0-0.4); Lymphocytes Absolute Auto 2.1 X10*3/uL (1.2-4.9); Lymphocytes Percent Auto 24.1 % (20-40); Mean Corpuscular HGB Conc 32.4 g/dl (31.0-35.0); Mean Corpuscular Hemoglobin 26.5 pg (27.0-33.0); Mean Platelet Volume 9.7 fL (9.4-12.3); Monocytes Absolute Auto 0.7 X10*3/uL (0.1-1.2); Neutrophils Absolute Auto 5.4 x10*3/uL (2.0-8.3); Neutrophils Percent Auto 63.7 % (45-73); Platelet Count 334 X10*3/uL (160-400); Red Blood Count 4.71 X10*6/uL (4.20-5.50); Red Cell Distribution Width 14.1 % (11.0-16.0); White Blood Count 8.5 X10*3/uL (4.8-10.8)
[2023-07-02 12:55] LABS: C Reactive Protein 0.65 mg/dL (< or = 0.50)
[2023-07-02 13:16] LABS: Erythrocyte Sedimentation Rate 16 MM/HR (0-20)
== END 2023-07-02 10:19 | disposition home or self-care (01) ==
LOC: HO.US 10:18
PROVIDERS: Absent Provider Registered Nurse; PCP Internal Medicine; Visit Provider Internal Medicine
DX: G44.209 Tension-type headache, unspecified, not intractable (principal); E04.1 Nontoxic single thyroid nodule
CPT/HCPCS: 36415; 76536; 85025; 85652; 86140

== ENCOUNTER 2023-08-22 10:19 | Outpatient (REF) | payer MEDICARE, SELFPAY ==
[2023-08-22 13:31] LABS: Estimated Average Glucose 177 mg/dL; Hemoglobin A1c % 7.8 % (<6.0)
[2023-08-22 13:42] LABS: Anion Gap 15 (12-20); Blood Urea Nitrogen 23 mg/dL (9-16); Calcium 9.6 mg/dL (8.4-10.2); Carbon Dioxide 25 mmol/L (22-29); Chloride 102 mmol/L (96-108); Estimated Glomerular Filt Rate 46; Glucose Random 225 mg/dL (60-115); Potassium 3.9 mmol/L (3.3-5.1); Sodium 138 mmol/L (135-145)
== END 2023-08-22 10:20 | disposition home or self-care (01) ==
LOC: HO.HMGCLDS 10:19
PROVIDERS: PCP Internal Medicine; Visit Provider Internal Medicine
DX: I12.9 Hypertensive chronic kidney disease with stage 1 through stage 4 chronic kidney disease, or unspecified chronic kidney disease (principal); E11.22 Type 2 diabetes mellitus with diabetic chronic kidney disease; N18.9 Chronic kidney disease, unspecified
CPT/HCPCS: 36415; 80048; 83036

== ENCOUNTER 2023-09-21 08:11 | Outpatient (REF) | payer MEDICARE, SELFPAY ==
--- NOTE | ~2023-09-21 | FL_ITS ---
EXAMINATION: XR FLUOROSCOPY UPPER GI WITH AIR CLINICAL INFORMATION: Dysphagia COMPARISON: None TECHNIQUE: Fluoroscopic air contrast upper GI examination was performed utilizing standard techniques with thin and thick barium and effervescent granules. Numerous spot images were obtained. FINDINGS: Lateral cine images of the oropharynx and hypopharynx demonstrate normal swallow mechanism with normal epiglottic inversion and soft palate elevation. No tracheal penetration, glottic or subglottic aspiration identified. No nasopharyngeal reflux present. Hypopharyngeal structures appear normal without evidence of mass or diverticulum. There is mild extrinsic compression on the posterior wall the cervical esophagus due to an anterior bridging osteophyte at C5-C6. There was no significant cricopharyngeal achalasia. Dual and single contrast images of the esophagus demonstrate normal caliber, contour, and mucosal pattern. No evidence of stricture, mass, or ulcerations identified. Esophageal peristalsis is mildly disorganized. A small type I hiatal hernia is present. No significant gastroesophageal reflux was seen during the course of the examination and on reflux views. Dual contrast and single contrast images of the stomach demonstrated a normal contour. Evaluation of the gastric mucosa is limited due to lack of distention from poor tolerance of the effervescent granules, and poor coating of the barium. No obvious masses or ulcerations are seen. Contrast freely passed into the gastric antrum and duodenal bulb without delay. Single and air-contrast images of the duodenal bulb demonstrate no abnormality. The duodenal sweep has a normal appearance, course, and mucosal fold appearance. The imaged proximal jejunum has a normal fold pattern and caliber. FLUOROSCOPY TIME: 3 minutes 16 seconds Number of Spot Images: 8 Number of Cine: 10 DOSE AREA PRODUCT: 2829 uGy-m2 (microgray-meter squared) FL/FL barium swallow with air IMPRESSION: 1. Mild extrinsic compression of the posterior wall of the cervical esophagus due to an anterior bridging osteophyte at C5-C6. This is unlikely contributing to the patient's symptoms. 2. Mildly disorganized esophageal peristalsis. 3. Small type I hiatal hernia. 4. Limited evaluation of the gastric mucosa due to lack of distention from poor tolerance of the effervescent granules, and poor coating of the barium. This procedure was performed by Bony Florentino PA-C, and supervised by Dr. Merino
== END 2023-09-21 08:12 | disposition home or self-care (01) ==
LOC: HO.XRAY 08:11
PROVIDERS: PCP Internal Medicine; Visit Provider Otolaryngology
DX: R13.10 Dysphagia, unspecified (principal)
CPT/HCPCS: 74221

== ENCOUNTER → 2023-09-21 08:13 | Outpatient (BNV) | payer MEDICARE, SELFPAY | PROVIDERS: PCP Internal Medicine; Visit Provider Physician Assistant Surgical | DX: R13.10 Dysphagia, unspecified (principal) | CPT/HCPCS: 74246 ==

== ENCOUNTER → 2023-10-11 10:16 | Outpatient (REF) | payer MEDICARE, SELFPAY ==
--- NOTE | ~2023-10-11 | NM_ITS ---
EXAMINATION: THYROID UPTAKE AND SCAN CLINICAL INFORMATION: Nontoxic single thyroid nodule. COMPARISON: No previous radionuclide thyroid scan is available for comparison. Thyroid ultrasound dated 07/02/2023 is available for comparison. TECHNIQUE: Following the oral administration of 273 microcuries of I-123 sodium iodide, thyroid uptake was performed and expressed as a percentage of the administrated dose. Gamma scintillation camera images of the thyroid in the anterior and right and left anterior oblique views were obtained using a pinhole collimator following the administration of 10 mCi Tc-99m pertechnetate. FINDINGS: The uptake is 7.38% at 4 hours and 25.7% at 24 hours (Normal radioiodine uptake at 24 hours is 10% to 30%). The radioiodine uptake is normal. The radiopertechnetate thyroid scintigram demonstrates the thyroid gland to markedly enlarged. There is marked heterogeneity in both lobes, with a dominant ovoid shaped focus of markedly diminished activity present laterally in the mid to inferior aspect of the right lobe and multiple smaller foci relatively increased activity present in both lobes without additional dominant focus. A single anterior radioiodine image obtained at the time of the 24-hour uptake measurement is similar to the radio pertechnetate image, but does not delineate detail within the gland nearly as well. When compared to the thyroid ultrasound dated 07/02/2023, the prominent region of decreased activity present in the mid and inferior aspects of the right lobe on this radionuclide scan appears to correspond to the largest nodule in this region on the ultrasound study which measured 3.9 x 4.2 x 3.9 cm. Because of the differences in these modalities and the presence of multiple nodules on both studies, it is difficult to correlate the additional nodules visualized on both studies. NM/NM thyroid w uptake IMPRESSION: Markedly enlarged multinodular goiter. 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 However, there is in addition a dominant hypofunctioning (cold) nodule in the mid and inferior aspects of the right lobe that corresponds to a suspicious solid nodule on the 07/02/2023 ultrasound, and ultrasound-guided fine-needle aspirate of this dominant nodule is recommended, if clinically indicated.
== END ==
LOC: HO.NUCMED 10:16
PROVIDERS: PCP Internal Medicine; Visit Provider Physician Assistant
DX: E04.1 Nontoxic single thyroid nodule (principal)
CPT/HCPCS: 78014; A9512; A9516

== ENCOUNTER 2023-11-07 15:21 | Outpatient (REF) | payer MEDICARE, SELFPAY ==
[2023-11-07 16:02] LABS: Appearance Urine Cloudy; Color Urine Yellow; Glucose Urine UA Negative (Negative); Leukocyte Esterase Urine Moderate (2+) (Negative); Nitrite Urine Negative (Negative); Specific Gravity - Urine 1.025 (1.005-1.025); UMIC TRIGGER UA YES; Urine Blood Moderate (2+) (Negative); Urine Ketones Trace mg/dL (Negative); Urine Protein 30 (1+) mg/dL (Neg-Trace)
[2023-11-07 16:20] LABS: Bacteria Urine 3+ (None Seen); Hyaline Casts Urine 0-2 /LPF (0-2); RBC Urine 0-2 /HPF (0-2); WBC Urine 0-5 /HPF (0-5)
== END 2023-11-07 15:22 | disposition home or self-care (01) ==
LOC: HO.LAB 15:21
PROVIDERS: PCP Internal Medicine; Visit Provider Internal Medicine
DX: R30.0 Dysuria (principal)
CPT/HCPCS: 81001; 81003; 87086

== ENCOUNTER 2023-11-09 11:31 | Outpatient (REF) | payer MEDICARE, SELFPAY ==
[2023-11-09 14:04] LABS: Adenovirus F 40/41 Not Detected (Not Detect.); Astrovirus Not Detected (Not Detect.); Campylobacter Not Detected (Not Detect.); Cryptosporidium Not Detected (Not Detect.); Cyclospora cayetanensis Not Detected (Not Detect.); E. coli EAEC Not Detected (Not Detect.); E. coli EPEC Not Detected (Not Detect.); E. coli ETEC Not Detected (Not Detect.); E. coli STEC Not Detected (Not Detect.); Entamoeba histolytica Not Detected (Not Detect.); Giardia lamblia Not Detected (Not Detect.); Plesiomonas shigelloides Not Detected (Not Detect.); Rotavirus A Not Detected (Not Detect.); Salmonella Not Detected (Not Detect.); Sapovirus Not Detected (Not Detect.); Shigella sp./EIEC Not Detected (Not Detect.); Vibrio Not Detected (Not Detect.); Vibrio Cholerae Not Detected (Not Detect.); Yersinia enterocolitica Not Detected (Not Detect.)
== END 2023-11-09 11:32 | disposition home or self-care (01) ==
LOC: HO.LNP 11:31
PROVIDERS: Visit Provider Internal Medicine
DX: R19.7 Diarrhea, unspecified (principal)
CPT/HCPCS: 87507

== ENCOUNTER 2023-11-19 10:14 | Outpatient (REF) | payer MEDICARE, SELFPAY ==
--- NOTE | ~2023-11-19 | US_ITS ---
Ultrasound-guided thyroid nodule fine needle aspiration Indication: Right mid pole thyroid nodule Procedure: Informed consent was obtained from the patient prior to the procedure. During this process, the procedure and potential alternatives were explained, along with the intended outcome and benefits. The risks of the procedure, as well as the risks of not doing the procedure, were discussed. The patient was given the opportunity to ask questions regarding the procedure and appeared competent to make medical decisions. A signed consent form which documents this discussion was placed in the medical record. A timeout was performed in the room. The patient was placed in a supine position with the neck extended. The right side of the neck and chest was prepped and draped in routine sterile fashion. 1% lidocaine was used as anesthetic. Under real-time ultrasound guidance, a 25-gauge needle was placed into the nodule and aspiration was performed. A total of 3 aspirations were performed. The specimens were placed in CytoLyt and and the Affirma bottle. Postprocedure images showed no hematoma. A Band-Aid was applied to the access site. The patient tolerated the procedure well with no immediate complications. Permanent ultrasound images were archived to the procedure. US/US guided fine needle asp Impression: Right mid pole thyroid nodule fine-needle aspiration This procedure was performed by Bony Florentino PA-C, and directly supervised by Dr. Merino Electronically signed by: Brain Merino MD 11/30/2023 02:58 PM EDT
[2023-11-19] MEDS: Lidocaine HCl 1 % MPF 5 ML VIAL SUBCUT (11:40)
== END 2023-11-19 10:15 | disposition home or self-care (01) ==
LOC: HO.US 10:14
PROVIDERS: PCP Internal Medicine; Visit Provider Physician Assistant
DX: E04.1 Nontoxic single thyroid nodule (principal)
CPT/HCPCS: 10005; 88112; 88305

== ENCOUNTER → 2023-11-19 10:42 | Outpatient (BNV) | payer MEDICARE, SELFPAY | PROVIDERS: PCP Internal Medicine; Visit Provider Radiology Diagnostic Radiology | DX: E04.1 Nontoxic single thyroid nodule (principal) | CPT/HCPCS: 10005 ==

== ENCOUNTER 2024-01-31 09:52 | Outpatient (AMB) | payer MEDICARE, SELFPAY ==
--- NOTE | 2024-01-31 09:55 | MHC.OFFVIS ---
Intake Visit Reasons: ov-Left knee OA last inj 11/13/22 Intake Note: Heide is a 73 year old female who presents today for her follow up visit for her left knee OA, last injection 11/13/22. Patient reports having relief from her last injection and would like to repeat. Allergies No Known Allergies Allergy (Verified 01/31/24 10:03) HPI HPI ov-Left knee OA last inj 11/13/22: Details: 73-year-old female who presents in the office today for a follow-up of left knee osteoarthritis. I last saw the patient in the office on 11/13/22 when she was given a cortisone injection in the left knee. While in the office today, the patient reports her last cortisone injection in the left knee provided relief. She would like to have a repeat injection today. She has a medical history of diabetes mellitus. [facility] Medical History (Updated 12/08/22 @ 00:01 by Gertrudis Parrish) Hx of head injury Arthritis Elevated cholesterol Anxiety CONCHITA on CPAP Diabetes HTN (hypertension) Surgical History Hx of bilateral cataract extraction Hx of colonoscopy Social History Alcohol intake: never Patient Tobacco Use Status: Former Tobacco user Current occupational status: retired Current occupation: rt handed Review of Systems Const All systems reviewed & are unremarkable except as noted in HPI and below Physical Exam Const General: cooperative, healthy appearing and no acute distress Resp Effort & Inspection: normal respiratory effort and able to speak in complete sentences Cardio Rate: regular rate Peripheral pulses: Peripheral pulses 2+ throughout GI Palpation (GI): Soft to palpation Skin Lesions: no lesions Rashes: no rashes Extrem Other: Left knee: Normal to inspection. No ecchymosis, erythema, or joint effusion. No tenderness to palpation to the medial or lateral joint lines. Full knee extension and flexion. Crepitus felt with ROM. NVI. Office Procedures AMB Joint Injection/Aspiration Joint Injection/Aspiration Primary Site: left knee Prep: site was prepped using aseptic technique, ethochloride spray was applied and injection warnings given Injected: 40 mg of, DepoMedrol, with 8 mL of (2% plain lido ) and in the joint Approach Used: anterolateral Procedure: The patient tolerated the procedure well, but had some pain with the injection and there was some relief with the local anesthesia Coding - Large joint Procedure code (CPT) selection complete Assessment & Plan Assessment & Plan (1) Osteoarthritis of left knee: Code(s): M17.12 - Unilateral primary osteoarthritis, left knee Category: Medical (2) Diabetes: Code(s): E11.9 - Type 2 diabetes mellitus without complications Category: Medical Plan Ms. Brownlee is a 73-year-old female who presents in the office today for a follow-up of left knee osteoarthritis. I last saw the patient in the office on 11/13/22 when she was given a cortisone injection in the left knee. While in the office today, the patient reports her last cortisone injection in the left knee provided relief. She would like to have a repeat injection today. She has a medical history of diabetes mellitus. The patient was offered a cortisone injection in the left knee with 40 mg of Depo-Medrol. The patient was explained the risks, benefits, and alternatives to receiving this injection. After receiving consent for the injection, the patient had the procedure done while in office today. The patient tolerated the procedure well with no complications. Due to the patient?s history of diabetes, they were instructed to monitor her blood glucose level. The patient was informed that they could see a rise in their numbers and if the numbers became too high, they were instructed to call their PCP. The patient was also informed that they could have facial flushing as a side effect of the injection but this will pass. Follow up will be PRN, or sooner if needed. Follow up will be PRN, or sooner if needed. Patient Instructions: Scribed by Kayce Vargas medical appliance maker, for Aditi Ribeiro PA-C on 01/31/24 at 10:10 am EST. Coding Level of Care Code Est Pt Level 4 (75607) Diagnoses Osteoarthritis of left knee M17.12 Diabetes E11.9 CPT Codes Coding - Large joint: 15286 - Large joint ([id number])
== END 2024-01-31 10:07 | disposition home or self-care (01) ==
LOC: HO.HOS 09:52
PROVIDERS: PCP Internal Medicine; Visit Provider Physician Assistant
DX: M17.12 Unilateral primary osteoarthritis, left knee (principal); E11.9 Type 2 diabetes mellitus without complications
CPT/HCPCS: 20610; 99214

== ENCOUNTER → 2024-01-31 09:52 | Outpatient (BNVA) | payer MEDICARE, SELFPAY | PROVIDERS: PCP Internal Medicine; Visit Provider Physician Assistant | DX: M17.12 Unilateral primary osteoarthritis, left knee (principal); E11.9 Type 2 diabetes mellitus without complications | CPT/HCPCS: 20610; 99212; J1010; J2003 ==

== ENCOUNTER 2024-02-07 11:20 | Outpatient (REF) | payer MEDICARE, SELFPAY ==
[2024-02-07 11:51] LABS: MANUAL DIFF FLAG NO
[2024-02-07 12:43] LABS: Creatinine Urine 72.33 mg/dL; Microalbum/Creatinine Ratio Ur 13.8 ug/mg cr (<30)
[2024-02-07 12:50] LABS: Basophils Absolute Auto 0.1 X10*3/uL (0.0-0.2); Basophils Percent Auto 0.9 % (0-2); Eosinophils Absolute Auto 0.4 X10*3/uL (0.0-0.4); Eosinophils Percent Auto 4.5 % (0-4); Hemoglobin 12.2 g/dl (12.0-16.0); Imm Gran Abs Auto 0.05 X10*3/uL (0.00-0.03); Imm Gran Pct Auto 0.5 % (0.0-0.4); Lymphocytes Absolute Auto 2.2 X10*3/uL (1.2-4.9); Lymphocytes Percent Auto 22.9 % (20-40); Mean Corpuscular Hemoglobin 27.3 pg (27.0-33.0); Mean Corpuscular Volume 82.8 fL (80.0-98.0); Mean Platelet Volume 9.7 fL (9.4-12.3); Monocytes Absolute Auto 0.8 X10*3/uL (0.1-1.2); Monocytes Percent Auto 8.7 % (2-11); Neutrophils Percent Auto 62.5 % (45-73); Platelet Count 344 X10*3/uL (160-400); Red Blood Count 4.47 X10*6/uL (4.20-5.50); White Blood Count 9.6 X10*3/uL (4.8-10.8)
[2024-02-07 13:03] LABS: D Dimer High Sensitivity 281 NG/ML; Estimated Average Glucose 183 mg/dL; Total Hemoglobin (HGBA1C) 3352.5407 umol/L
[2024-02-07 13:20] LABS: B Type Natriuretic Peptide 33 pg/mL (<100)
[2024-02-07 13:29] LABS: Alanine Aminotransferase 22 U/L (0-31); Alkaline Phosphatase 59 U/L (39-117); Anion Gap 12 (12-20); Aspartate Amino Transferase 20 U/L (5-31); Bilirubin Total 0.2 mg/dL (0.0-1.0); Blood Urea Nitrogen 23 mg/dL (9-16); Calcium 9.6 mg/dL (8.4-10.2); Carbon Dioxide 25 mmol/L (22-29); Chloride 103 mmol/L (96-108); Estimated Glomerular Filt Rate > 60; Glucose Random 138 mg/dL (60-115); Potassium 4.4 mmol/L (3.3-5.1); Sodium 136 mmol/L (135-145); Total Protein 7.5 g/dL (6.5-8.0)
== END 2024-02-07 11:21 | disposition home or self-care (01) ==
LOC: HO.LAB 11:20
PROVIDERS: Visit Provider Internal Medicine
DX: I10 Essential (primary) hypertension (principal); E11.9 Type 2 diabetes mellitus without complications
CPT/HCPCS: 36415; 80053; 82043; 82570; 83036; 83880; 85025; 85379

== ENCOUNTER 2024-02-20 10:38 | Outpatient (AMB) | payer MEDICARE, SELFPAY ==
--- NOTE | 2024-02-20 10:45 | A.OFFVIS_ITS ---
Vital Signs 02/20/24 10:47 Height 5 ft 8 in Weight 279 lb BMI 42.4 BP 126/58 L Blood Pressure Location Rt brachial Position Sitting Pulse 81 Pulse Source Doppler Pulse Oximetry (%) 98 Oxygen Delivery Method Room Air Intake Visit Reasons: Shortness of Breath/Sleep Apnea Allergies No Known Allergies Allergy (Verified 02/20/24 10:50) HPI HPI Shortness of Breath/Sleep Apnea: Details: 73-year-old lady, lifetime nonsmoker, with no prior personal or family history of lung disease referred for evaluation of dyspnea on exertion. Patient states that she initially started to feel it in June of 2023 when walking treadmill. Her symptoms slowly progress to a point that approximately 2-3 months prior she started having difficulties going to her mailbox, needing to take a break in between. She denies any cough, wheezing, sputum production. She denies chest pain or orthopnea. Patient does have underlying diagnosis of obstructive sleep apnea that is managed by sleep medicine provider in [place]. Patient has been employed with no exposure to industrial dusts. 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 [facility] Medical History (Updated 02/20/24 @ 11:11 by Reymundo Viramontes MD) Hx of head injury Arthritis Elevated cholesterol Anxiety CONCHITA on CPAP Diabetes HTN (hypertension) Surgical History Hx of bilateral cataract extraction Hx of colonoscopy Social History (Updated 02/20/24 @ 10:52 by PREETI Craig) Alcohol intake: never Patient Tobacco Use Status: Never used Tobacco Current occupational status: retired Current occupation: rt handed Review of Systems Const Denies daytime sleepiness, Denies excessive sweating, Denies fatigue, Denies fever(s), Denies lethargy, Denies malaise, Denies night sweats, Denies snoring and Denies weight loss Eyes Denies blurry vision and Denies itchy eyes ENT Denies nasal congestion, Denies post nasal drip, Denies sinus pain, Denies sinus pressure and Denies other ( Thrush) Card Denies chest pain, Denies pedal edema, Denies dyspnea, Reports dyspnea on exertion, Denies orthopnea and Denies paroxysmal nocturnal dyspnea Resp Denies cough, Denies hemoptysis, Denies excessive phlegm production, Denies dyspnea, Reports dyspnea on exertion, Denies snoring and Denies wheezing GI Denies abdominal pain and Denies heartburn Musc Denies myalgias, Denies arthralgias and Denies joint swelling Skin/Breast Denies rash Neuro Denies memory loss and Denies seizure-like activity Psych Denies abnormal sleep pattern, Denies anxiety and Denies memory loss Endo Denies excessive sweating, Denies fatigue and Denies heat intolerance Cornell/Lymph Denies easy bruising Aller/Immun Denies itchy eyes, Denies seasonal rhinorrhea and Denies wheezing Physical Exam Vital Signs: Last Vital Signs Pulse 81 02/20/24 10:47 BP 126/58 L 02/20/24 10:47 Pulse Ox 98 02/20/24 10:47 Oxygen Delivery Method Room Air 02/20/24 10:47 BMI result Body Mass Index 42.4 Const General: no acute distress and alert Nutritional Appearance: obese Orientation/consciousness: Other orientation findings ( oriented) HEENT Head: Yes atraumatic Eyes General: appearance normal, both eyes and all related structures Sclerae: sclerae normal EOM: EOMs intact bilaterally Neck Neck: Yes supple Lymphatic: no lymphadenopathy noted Resp Effort & Inspection: normal respiratory effort and no use of accessory muscles Auscultation: clear to auscultation bilaterally Cardio Rate: regular rate Rhythm: regular rhythm Heart sounds: no gallops, no murmurs and no rubs Skin General skin exam: other ( warm) Extrem General: No clubbing, No cyanosis and No edema Assessment & Plan Assessment & Plan (1) Dyspnea on exertion: Code(s): R06.09 - Other forms of dyspnea Category: Medical Plan: Unclear etiology at this time, may have pulmonary, cardiac or obesity/deconditioning component. Will obtain pulmonary function test, chest x- ray, and 2D echocardiogram for further evaluation. (2) CONCHITA on CPAP: Code(s): G47.33 - Obstructive sleep apnea (adult) (pediatric); Z99.89 - Dependence on other enabling machines and devices Category: Medical Plan: Currently under care of sleep medicine provider in [facility]. Orders: Orders CA echo transthoracic complete Today R06.09 - Other forms of dyspnea XR chest 2V Today R06.09 - Other forms of dyspnea PFT pulmonary function test Today R06.09 - Other forms of dyspnea Coding Level of Care Code New Pt Level 4 (78167) Diagnoses Dyspnea on exertion R06.09 CONCHITA on CPAP G47.33; Z99.89
[2024-02-20 10:47] VITALS: BP 126/58; PULSE 81; O2SAT 98; BMI 42.4
== END 2024-02-20 11:09 | disposition home or self-care (01) ==
PROVIDERS: PCP Internal Medicine; Referring Provider Internal Medicine; Visit Provider Internal Medicine Pulmonary Disease
DX: R06.09 Other forms of dyspnea (principal); G47.33 Obstructive sleep apnea (adult) (pediatric); Z99.89 Dependence on other enabling machines and devices
CPT/HCPCS: 99204

== ENCOUNTER 2024-02-20 10:38 | Outpatient (REF) | payer MEDICARE, SELFPAY ==
--- NOTE | ~2024-02-20 | XR_ITS ---
EXAMINATION: XR CHEST CLINICAL INFORMATION: Dyspnea. COMPARISON: Most recent chest radiograph dated 08/08/2018. TECHNIQUE: 2 views of the chest were obtained. FINDINGS: The lungs are clear. The cardiomediastinal silhouette is normal in size. There is no pleural effusion or pneumothorax. No acute osseous abnormality. XR/XR chest 2V IMPRESSION: No acute cardiopulmonary findings. Electronically signed by: Tristan Wray MD 02/20/2024 02:06 PM PARVIN
== END 2024-02-20 10:39 | disposition home or self-care (01) ==
LOC: HO.XRAY 10:38
PROVIDERS: PCP Internal Medicine; Referring Provider Internal Medicine; Visit Provider Internal Medicine Pulmonary Disease
DX: R06.09 Other forms of dyspnea (principal); G47.33 Obstructive sleep apnea (adult) (pediatric); Z99.89 Dependence on other enabling machines and devices
CPT/HCPCS: 71046; 99202

== ENCOUNTER 2024-03-03 13:52 | Outpatient (REF) | payer MEDICARE, SELFPAY ==
[2024-03-03 16:03] LABS: Appearance Urine Clear; Color Urine Yellow; Glucose Urine UA Negative (Negative); Leukocyte Esterase Urine Moderate (2+) (Negative); Nitrite Urine Negative (Negative); Specific Gravity - Urine 1.015 (1.005-1.025); UMIC TRIGGER UACC YES; Urine Blood Negative (Negative); Urine Ketones Negative (Negative); Urine Protein Negative (Neg-Trace)
[2024-03-03 16:05] LABS: Bacteria Urine None Seen (None Seen); Hyaline Casts Urine 0-2 /LPF (0-2); RBC Urine 0-2 /HPF (0-2); Squamous Epithelial Cell Urine 0-2 /HPF (0-2); UACC Culture Trigger YES; WBC Urine 21-50 /HPF (0-5)
== END 2024-03-03 13:53 | disposition home or self-care (01) ==
LOC: HO.LAB 13:52
PROVIDERS: PCP Internal Medicine; Visit Provider Internal Medicine
DX: R30.0 Dysuria (principal)
CPT/HCPCS: 81001; 81003; 87086

== ENCOUNTER 2024-03-15 08:54 | Outpatient (REF) | payer MEDICARE, SELFPAY ==
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
--- OUTSIDE RECORDS SUMMARY | 2024-03-15 08:56 | XMS_ITS | Patient Health Record ---
Author Organization [facility] Address [address] [place] [address] Care Team Providers Care Manager Fleet Name Role Phone Roscoe Rahman MD Primary Care Provider Omid Garcia Unavailable [phone] ALLERGIES No Known Allergies REASON FOR REFERRAL No Information MEDICATIONS Medication SIG (Take, Route, Frequency, Duration) Notes Start Date End Date Status metFORMIN HCl 500 MG 1 tablet with a ablania l Orally twice a day Active Multivitamin - 1 tablet Orally Once a day for 30 day(s) Active Citalopram & Diet Manage Prod Active Citalopram Hydrobromide 10 MG 1 tablet Orally Once a day for 30 day(s) Active Lisinopril 20 MG 1 tablet Orally twic e a day Active Adelso Aspirin EC Low Dose 81 MG 1 tablet Orally Once a day for 30 day(s) Active Simvastatin 10 MG 1 tablet in the even ing Orally Once a day for 30 day(s) Active IMMUNIZATIONS Vaccine Route Administration Date Status Comme nts Influenza Unknown 01/30/2018 Administered Influenza Unknown 12/31/2020 Administered SOCIAL HISTORY Tobacco Use: Social History Observation Description Date Details (start date - stop date) Never Smoker NA - NA Sex Assigned At : Social History Observation Description Sex Assigned At Unknown Tobacco Use/Smoking Question Answer Notes Patient is a nonsmoker Alcohol Screen Question Answer Notes Did you have a drink containing alcohol in the p ast year? No Points 0 Interpretation Negative PROBLEMS Problem Type ICD Code Onset Dates Problem Status W/U Status Risk SNOMED Code Notes Problem History of adenomatous polyp of colon (Z86.010) Active confirmed 276695237 Problem Encounter for screening for malignant neoplasm of colon (Z12.11) Active confirmed 708402927 Problem Preprocedural examination (Z01.818) Active confirmed 648478928589014 Problem Long-term use of aspirin therapy (Z79.82) Active confirmed 497589505 Problem Diverticulosis of colon (K57.30) Active confirmed Diverticulosi s of colon (763418750) PLAN OF TREATMENT Pending Test Test Name Order Date Pathology 07/22/2021 Future Test Test Name Order Date COLONOSCOPY 12/18/2018 COLONOSCOPY 03/17/2021 Insurance Providers Payer Name Payer Address Payer Phone Subscriber Number Group Number Insured Name Patient Relationship to Insured Coverage Start Date Coverage End Date MEDICARE OF [place] [address] [facility] [place] [address] [id number] RYNE AMBRIZ Self - patient is the insured [employer] ATT[employer] CLAIMS [address] [place] [address] [phone] [id number] RYNE AMBRIZ Self - patient is the insured MEDICAL (GENERAL) HISTORY Medical History History ICD Code Denies NE,CVA,Lung disease,renal disease Sleep apnea-uses CPAP NIDDM UTI HTN Anxiety Hyperlipidemia Colonoscopy in 2003 with a s mall tubular adenoma removed; neg. colonoscopy in 2010 Cortisone injection in knee left Surgical History Surgery Date(Month/Year) Cataract-lens implants- left eye
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
--- OUTSIDE RECORDS SUMMARY | 2024-03-15 08:56 | XMS_ITS ---
Author Organization [facility] Address [address] [place] [address] Care Team Providers Care Reflector Driller And Deburrer Name Role Phone Roscoe Rahman MD Primary Care Provider Griselda Dillon Unavailable [phone] Encounters Encounter Location Date Provider Diagnosis [address] [address] 01/08/2024 Griselda Bazzi Plan Of Treatment Next Appt Details Provider Name:Agustin Whiteside , 05/23/2024 10:30:00 AM, [address] [place], [address], Progress Notes * Heide ROMERO ADOB:08/1950 (73 yo F)Acc No.[id number]:01/08/2024 Progress Note Patient:?KATINA Heide Ayon Provider:?Griselda Bazzi DPM :1950???Age:73 Y???Sex:Female D ate:01/08/2024 Address:[address] [place] [address] Pcp:Roscoe Rahman MD Subjective: * Chief Complaints: * ??? * Medical History:? Objective: * Vitals:? Assessment: Plan: * Treatment: * Images: * The named appointment provid er may or may not be the originator of this progress note, and it is not deemed complete until electronically signed by the appointment provider. Sign off status: Pending * Provider:?Griselda Bazzi DPM Date:?1 Generated for Jada pierce/Eula/Benji on:?03/15/2024 08:55 AM EST
--- OUTSIDE RECORDS SUMMARY | 2024-03-15 08:56 | XMS_ITS ---
Author Organization [facility] Address [address] [place] [address] Care Team Providers Care Cable Television Program Director Name Role Phone Roscoe Rahman MD Primary Care Provider UnavailGriselda Lynch Unavailable [phone] Cotto Encounters Encounter Location Date Provider Diagnosis [address] [address] 01/07/2024 Griselda Bazzi Plan Of Treatment Next Appt Details Provider Name:Agustin Whiteside , 05/23/2024 10:30:00 AM, [address] [place], [address], Progress Notes * Heide ROMERO ADOB:08/1950 (73 yo F)Acc No.[id number]:01/07/2024 Progress Note Patient:?Heide ROMERO Provider:?Griselda Bazzi DPM :1950???Age:73 Y???Sex:Female D ate:01/07/2024 Address:[address] [place] [phone] Pcp:Roscoe Rahman MD Subjective: * Chief Complaints: * ???1. Dr Cotto. * Medical History:? Objective: * Vitals:? Assessment: [...]
--- NOTE | 2024-03-15 09:00 | PFT_ITS ---
Spirometry [] Lung Volumes [] Diffusion Capacity [] Methacholine Challenge [] Flow Volume Loops [] MVV [] MIP/MEP(Max inspiratory pressure/Max expiratory pressure) [] 6 Minute Walk Test [] ABG [] Interpretation [] MTDD
[2024-03-15 09:57] VITALS: PULSE 82; O2SAT 98
== END 2024-03-15 08:55 | disposition home or self-care (01) ==
LOC: HO.RESP 08:54
PROVIDERS: PCP Internal Medicine; Visit Provider Internal Medicine Pulmonary Disease
DX: R06.09 Other forms of dyspnea (principal)
CPT/HCPCS: 94010; 94640; 94727; 94729

== ENCOUNTER → 2024-03-18 09:45 | Outpatient (REF) | payer MEDICARE, SELFPAY ==
--- NOTE | 2024-03-18 09:49 | CA_ITS ---
Transthoracic Echocardiogram Patient (Last, First, Middle): Heide Romero, Gender: Female Date of : 1950 Age: 73 Procedure Date: 03/18/2024 Procedure Type: Transthoracic Echocardiogram Location: OP Height: 175.26 cm Weight: 127.01 kg BSA: 2.38 m2 Heart Rate: bpm BP: 130 / 74 mmHg Reel Cutter: Referring MD: Reymundo Viramontes MD Symptoms: R06.09 - Other forms of dyspnea Study Quality: Adequate ECG Rhythm: Sinus Conclusions: - The left ventricular systolic function is normal. The visually estimated ejection fraction is between 60-65%. - There is moderately increased left ventricular wall thickness. - There is mild aortic valve stenosis. - There is no evidence of pulmonary hypertension. Findings Left Ventricle Normal left ventricular cavity size. There is moderately increased left ventricular wall thickness. The left ventricular systolic function is normal. The visually estimated ejection fraction is between 60-65%. There is no evidence of regional wall motion abnormalities. Diastolic function is normal for age. Right Ventricle Normal right ventricular cavity size and systolic function. Atria The left atrium is mildly dilated. The right atrium is normal in size. Aortic Valve There is mild calcification of the aortic valve. There is mild aortic valve stenosis. There is no aortic valve regurgitation. Mitral Valve The mitral valve appears normal. There is no mitral valve regurgitation. There is no mitral valve stenosis. Pulmonic Valve The pulmonic valve is likely normal. Tricuspid Valve Normal tricuspid valve structure. There is trace tricuspid valve regurgitation. There is no evidence of pulmonary hypertension. Great Vessels The asc aorta is normal in size. Venous The inferior vena cava is normal in size and collapses less than 50% with inspiration. Pericardium/Pleural There is no evidence of pericardial effusion. Prior Study Comparison No significant change compared to prior study dated: 06/14/2023. Measurements 2D Linear Measurements IVSd: 1.42 0.6-0.9/0.6-1.0 cm LVIDd: 4.61 3.9-5.3/4.2-5.9 cm LVIDd Index: 1.94 2.4-3.2/2.2-3.1 cm/m2 LVIDs: 2.78 2.0-3.6 cm LVPWd: 1.40 0.7-1.1 cm Ao Root: 3.00 2.1-3.5 cm LA Diam: 4.00 2.7-3.8/3.0-4.0 cm LAIDs Index: 1.68 1.5-2.3 cm/m2 LV Mass: 324.69 67-162/88-224 g LV Mass Index: 136.42 43-95/49-115 g/m2 LVOT Diam: 2.10 3.0+(-)1.3 cm 2D Systolic Function EF 4C: 59.30 >55% EF 2C: 53.80 >55% EF BiP: 56.40 >55% Mitral Valve MV Pk E: 1.04 MV PK A: 1.11 MV Decel Time: 167.00 E/A: 0.90 E'Lateral: 9.46 E'Medial: 6.64 E/E' Med: 15.70 E/E' Lat: 11.00 PHT: 49.00 MVA PHT: 4.49 Decel Henderson: 6.23 Aortic Valve AoV Pk Eduard: 2.20 AoV Mn Eduard: 1.50 AoV VTI: 0.53 AoV Pk Grad: 19.00 Aov Mn Grad: 10.00 MAILE Cont.VTI: 1.94 LVOT LVOT Pk Eduard: 1.19 LVOT Mn Eduard: 0.71 LVOT VTI: 0.30 LVOT Pk Grad: 6.00 LVOT Mn Grad: 3.00 LVOT Diam: 2.10 LVOT Area: 3.46 Diastolic Function MV Pk E: 1.04 MV Pk A: 1.11 E/A: 0.90 E'Medial: 6.64 E/E' Med: 15.70 E' Laterial: 9.46 E/E' Lat: 11.00 Right Ventricle TAPSE (mm): 32.00 TVS' Eduard: 17.00 Tricuspid Valve TR Pk Eduard: 2.37 TR Pk Grad: 22.00 RA Press: 3.00 RVSP: 25.00 Great Vessels Aorta Ao Root-2D: 3.00 2.0-3.7 cm Ao Asc: 3.20 2.1-3.4 cm Pulmonary Valve PV Pk Eduard: 1.12 Peak PV Grad: 5.00 Updated in Other Vendor System with Status of Final Edgardo Tillman MD electronically signed on 03/18/2024 3:53:31 PM with status of Final
== END ==
LOC: HO.CARD 09:45
PROVIDERS: PCP Internal Medicine; Visit Provider Internal Medicine Pulmonary Disease
DX: R06.09 Other forms of dyspnea (principal)
CPT/HCPCS: 93306

== ENCOUNTER → 2024-03-18 09:49 | Outpatient (BNV) | payer MEDICARE, SELFPAY | PROVIDERS: PCP Internal Medicine; Visit Provider Internal Medicine | DX: I35.0 Nonrheumatic aortic (valve) stenosis (principal); I35.8 Other nonrheumatic aortic valve disorders | CPT/HCPCS: 93306 ==

== ENCOUNTER 2024-03-19 09:51 | Outpatient (AMB) | payer MEDICARE, SELFPAY ==
[2024-03-19 09:57] VITALS: BP 138/72; PULSE 104; O2SAT 96; BMI 42.1
--- NOTE | 2024-03-19 09:57 | MHC.OFFVIS ---
Vital Signs 03/19/24 09:57 Height 5 ft 8 in Weight 277 lb BMI 42.1 BP 138/72 Blood Pressure Location Rt brachial Position Sitting Pulse 104 H Pulse Source Doppler Pulse Oximetry (%) 96 Oxygen Delivery Method Room Air Intake Visit Reasons: Shortness of Breath/PFT Follow Up Allergies No Known Allergies Allergy (Verified 02/20/24 10:50) HPI HPI Shortness of Breath/PFT Follow Up: Details: 73-year-old lady, lifetime nonsmoker, with no prior personal or family history of lung disease referred for evaluation of dyspnea on exertion. Patient states that she initially started to feel it in June of 2023 when walking treadmill. Her symptoms slowly progress to a point that approximately 2-3 months prior she started having difficulties going to her mailbox, needing to take a break in between. She denies any cough, wheezing, sputum production. She denies chest pain or orthopnea. Patient does have underlying diagnosis of obstructive sleep apnea that is managed by sleep medicine provider in [place]. Patient has been employed with no exposure to industrial dusts. 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 After the last office visit patient did have 2D echocardiogram that demonstrated mild aortic stenosis with mild left atrium dilatation. Her pulmonary function test also is essentially normal showing only extrathoracic restriction secondary to abdominal obesity. [facility] Medical History (Updated 03/19/24 @ 10:18 by Reymundo Viramontes MD) Hx of head injury Arthritis Elevated cholesterol Anxiety CONCHITA on CPAP Diabetes HTN (hypertension) Surgical History Hx of bilateral cataract extraction Hx of colonoscopy Social History (Updated 02/20/24 @ 10:52 by PREETI Craig) Alcohol intake: never Patient Tobacco Use Status: Never used Tobacco Current occupational status: retired Current occupation: rt handed Review of Systems Const Denies daytime sleepiness, Denies excessive sweating, Denies fatigue, Denies fever(s), Denies lethargy, Denies malaise, Denies night sweats, Denies snoring and Denies weight loss Eyes Denies blurry vision and Denies itchy eyes ENT Denies nasal congestion, Denies post nasal drip, Denies sinus pain, Denies sinus pressure and Denies other ( Thrush) Card Denies chest pain, Denies pedal edema, Denies dyspnea, Denies orthopnea and Denies paroxysmal nocturnal dyspnea Resp Denies cough, Denies hemoptysis, Denies excessive phlegm production, Denies dyspnea, Denies snoring and Denies wheezing GI Denies abdominal pain and Denies heartburn Musc Denies myalgias, Denies arthralgias and Denies joint swelling Skin/Breast Denies rash Neuro Denies memory loss and Denies seizure-like activity Psych Denies abnormal sleep pattern, Denies anxiety and Denies memory loss Endo Denies excessive sweating, Denies fatigue and Denies heat intolerance Cornell/Lymph Denies easy bruising Aller/Immun Denies itchy eyes, Denies seasonal rhinorrhea and Denies wheezing Physical Exam Vital Signs: Last Vital Signs Pulse 104 H 03/19/24 09:57 BP 138/72 03/19/24 09:57 Pulse Ox 96 03/19/24 09:57 Oxygen Delivery Method Room Air 03/19/24 09:57 BMI result Body Mass Index 42.1 Const General: no acute distress and alert Nutritional Appearance: not obese Orientation/consciousness: Other orientation findings ( oriented) HEENT Head: Yes atraumatic Eyes General: appearance normal, both eyes and all related structures Sclerae: sclerae normal EOM: EOMs intact bilaterally Neck Neck: Yes supple Lymphatic: no lymphadenopathy noted Resp Effort & Inspection: normal respiratory effort and no use of accessory muscles Auscultation: clear to auscultation bilaterally Cardio Rate: regular rate Rhythm: regular rhythm Heart sounds: no gallops, no murmurs and no rubs Skin General skin exam: other ( warm) Extrem General: No clubbing, No cyanosis and No edema Assessment & Plan Assessment & Plan (1) Dyspnea on exertion: Code(s): R06.09 - Other forms of dyspnea Category: Medical Plan: So far is negative pulmonary and cardiac workup. Appears to mostly related to deconditioning. Patient has been encouraged to institute an exercise program. (2) Aortic stenosis: Code(s): I35.0 - Nonrheumatic aortic (valve) stenosis Category: Medical Plan: Mild aortic stenosis with mild left atrial dilatation noted on 2D echocardiogram. Will refer for cardiologic follow-up. Orders: Referrals Cardiology Referral I35.0 - Nonrheumatic aortic (valve) stenosis, R06.09 - Other forms of dyspnea Coding Level of Care Code Est Pt Level 4 (69858) Diagnoses Dyspnea on exertion R06.09 Aortic stenosis I35.0
== END 2024-03-19 10:13 | disposition home or self-care (01) ==
PROVIDERS: PCP Internal Medicine; Visit Provider Internal Medicine Pulmonary Disease
DX: R06.09 Other forms of dyspnea (principal); I35.0 Nonrheumatic aortic (valve) stenosis
CPT/HCPCS: 99214

== ENCOUNTER → 2024-03-19 09:51 | Outpatient (BNVA) | payer MEDICARE, SELFPAY | PROVIDERS: PCP Internal Medicine; Visit Provider Internal Medicine Pulmonary Disease | DX: I35.0 Nonrheumatic aortic (valve) stenosis (principal); R06.09 Other forms of dyspnea | CPT/HCPCS: 99212 ==

== ENCOUNTER 2024-06-11 09:06 | Outpatient (AMB) | payer MEDICARE, SELFPAY ==
[2024-06-11 09:10] VITALS: BP 138/78; PULSE 82; RESP 14; TEMP 36.5; O2SAT 97; BMI 42.0
--- NOTE | 2024-06-11 09:10 | A.OFFPC_ITS ---
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 Required: No Accompanied by: Self / Same As Patient Allergies No Known Allergies Allergy (Verified 06/11/24 09:14) Tobacco use date assessed: 06/11/24 Fall risk assessment: 2 + Falls in past year Last assessed Fall Risk: 06/11/24 Dental Screening Dental Screen Date: 06/11/24 Did you have a dental visit in the last 12 months?: Yes Did you have a dental problem in the last 6 months where you did not have access to dental care?: No PFSH Medical History Hx of head injury Arthritis Elevated cholesterol Anxiety CONCHITA on CPAP Diabetes HTN (hypertension) Surgical History Hx of bilateral cataract extraction Hx of colonoscopy Family History (Updated 06/11/24 @ 09:20 by PREETI Gipson) Father Diabetes Heart attack High blood pressure Mother Diabetes Social History Housing: House Alcohol intake: never Patient Tobacco Use Status: Never used Tobacco service: No Current occupational status: retired Current occupation: rt handed Cognitive needs: No Hearing needs: No Vision needs: Yes (reading glasses) Questionnaire PHQ-9 Over the last 2 weeks, how often have you been bothered by any of the following problems? 2. Feeling down, depressed, or hopeless: not at all 3. Trouble falling or staying asleep, or sleeping too much: not at all 4. Feeling tired or having little energy: not at all 5. Poor appetite or overeating: not at all 6. Feeling bad about yourself - or that you are a failure or have let yourself or your family down: not at all 7. Trouble concentrating on things, such as reading the newspaper or watching television: not at all 8. Moving or speaking so slowly that other people could have noticed. Or the opposite - being so fidgety or restless that you have been moving around a lot more than usual: not at all 9. Thoughts that you would be better off or of hurting yourself in some way: not at all Source: Developed by Drs. Omid Blankenship, Jasper Motley and colleagues, with an educational brian from [employer]. Thrive Questionnaire Date Thrive assessed: 06/11/24 I am a: Patient What is your living situation today?: I have a steady place to live Within the past 12 months, did the food you bought not last and you didn't have the money to get more?: Never true Within the past 12 months, did you worry whether your food would run out before you got money to buy more?: Never true Do you have trouble paying for medicines?: No Do you have trouble getting transportation to medical appointments?: No Do you have trouble paying your heating and electricity bill?: No Do you have trouble taking care of your child, family member or friend?: No Do you have trouble with day-to-day activities such as bathing, preparing meals, shopping, managing finances, etc.?: No Are you currently unemployed and looking for a job?: No Are you interested in more education?: No THRIVE Score: 0 AUDIT C Alcohol Use Questionnaire (AUDIT-C) 1. How often do you have a drink containing alcohol?: Never 3. How often do you have six or more drinks on one occasion?: Never Total Score: 0 EARLINE-7 AMB Questionnaire EARLINE-7 Date EARLINE - 7 assessed: 06/11/24 Feeling nervous, anxious, or on edge: 0 = Not at all Not being able to stop or control worryin = Not at all Worrying too much about different things: 0 = Not at all Trouble relaxin = Not at all Being so restless that it is hard to sit still: 0 = Not at all Becoming easily annoyed or irritable: 0 = Not at all Feeling afraid as if something awful might happen: 0 = Not at all Total EARLINE-7 score (0-4 normal; 5-9 mild; 10-14 moderate; 15-21 severe): 0 Source: Developed by Tabitha Alcantar Kurt Kroenke and colleagues, with an educational brian from [employer]. Physical exam (Primary Care) Vital Signs: Last Vital Signs Temp 97.7 F 06/11/24 09:10 Pulse 82 06/11/24 09:10 Resp 14 06/11/24 09:10 BP 138/78 06/11/24 09:10 Pulse Ox 97 06/11/24 09:10 Oxygen Delivery Method Room Air 06/11/24 09:10 BMI result Body Mass Index 42.0 Tobacco/Smoking Status: Tobacco use Status Tobacco use date assessed 06/11/24 06/11/24 09:23 Patient Tobacco Use Status Never used Tobacco 06/11/24 09:23 Thrive Assessment: Date of Thrive Assessment Date Thrive assessed 06/11/24 06/11/24 09:23 Coding Level of Care Code Est Pt Level 3 (61592) Complex EM visit Add On G2211 Diagnoses Abdominal wall strain S39.011A Assessment & Plan Assessment & Plan (1) Abdominal wall strain: Code(s): S39.011A - Strain of muscle, fascia and tendon of abdomen, initial encounter Plan: Mostly muscular etiology. Muscle relaxant added to the regimen Plan History of Present Illness The patient is a 74-year-old female presenting with muscular strain in the abdominal wall. The pain onset was associated with physical exertion while clearing ice from her sidewalk several weeks ago. The patient previously underwent an abdominal ultrasound, which confirmed the absence of internal organ issues. She characterizes the pain as fluctuating, with occasional radiation to her back. Application of heat has shown some relief, and the symptoms remain manageable, albeit intermittently present. Social History - Resides with her brother. 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 Review of Systems - Musculoskeletal: Reports intermittent abdominal discomfort, worse with physical exertion. - Back: Reports occasional pain radiating from the abdomen. Physical Exam General: Appearance normal, both eyes and all related structures Nutritional Appearance: Well nourished Orientation/consciousness: Patient oriented x3 Limitations: Pain in the abdomen and sometimes in the back, likely muscular Head: Normal to inspection Neck: Normal visual inspection Chest: Normal palpation of entire chest wall Respiratory: Normal respiratory effort Neurology: Patient oriented x3 Abd: Patient was asked to raise her legs, while lying down, reproducible pain in the epigastric area Results - Tests: Previous abdominal ultrasound was reported as normal. Plan I discussed with the patient that the abdominal discomfort was likely due to muscular strain rather than an internal issue, as corroborated by her ultrasound results. Applying heat pads and the suggested muscle relaxant will support recovery. She has a follow-up scheduled at the end of July, which aligns with her ongoing treatment, allowing for further assessment and management. Patient was informed and verbally consented to the use of an ambient scribe for clinic note documentation during this visit. Discussion Notes I discussed with the patient that her symptoms are consistent with a muscular strain in the abdomen, attributed to significant physical activity during the ice removal incident. We reviewed the management plan, including applying heat and using a muscle relaxant at night. I emphasized the importance of monitoring the symptoms and recommended returning if the condition does not improve or worsens. The patient and I discussed the possibility to have a follow-up, during her previously scheduled appointment at the end of July, ensuring continuity in tracking her recovery. Patient Instructions - Apply a heating pad to the affected area as needed for comfort. - Take the prescribed muscle relaxant at night for pain management. - Monitor symptoms, and avoid activities that may exacerbate discomfort. - Attend the already scheduled appointment at the end of July for a follow-up assessment. - Return sooner if symptoms worsen or new symptoms develop.
--- OUTSIDE RECORDS SUMMARY | 2024-06-11 09:41 | XMS_ITS ---
Author Organization [facility] Address [address] [place] [id number] Care Team Providers Care Abattoir Manager Name Role Phone Roscoe Rahman MD Primary Care Provider Griselda Dillon Unavailable [phone] Encounters Encounter Location Date Provider Diagnosis [address] [id number] 01/08/2024 Grieslda Bazzi Plan Of Treatment Next Appt Details Provider Name:Agustin Whiteside , 08/26/2024 09:00:00 AM, [address] [place], [id number], Progress Notes * Heide ROMERO ADOB:08/1950 (74 yo F)Acc No.[id number]:01/08/2024 Progress Note Patient:?KATINA Heide Ayon Provider:?Griselda Bazzi DPM :1950???Age:73 Y???Sex:Female D ate:01/08/2024 Address:[address] [place] [id number] Pcp:Roscoe Rahman MD Subjective: * Chief Complaints: [...] Bazzi DPM Date:?1 Generated for Jada pierce/Eula/Benji on:?06/11/2024 09:41 AM EDT
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
--- OUTSIDE RECORDS SUMMARY | 2024-06-11 09:42 | XMS_ITS | Patient Health Record ---
Author Organization [facility] Address [address] [place] [address] Care Team Providers Care Alteration Specialist Name Role Phone Roscoe Rahman MD Primary Care Provider Omid Garcia Unavailable [phone] Allergies No Known Allergies Reason For Referral No Information Medications Medication SIG (Take, Route, Frequency, Duration) Notes Start Date End Date Status metFORMIN HCl 500 MG 1 tablet with a [place] l Orally twice a day Active Multivitamin [...] Once a day for 30 day(s) Active Immunizations Vaccine Route Administration Date Status Comme nts Influenza Unknown 01/30/2018 Administered Influenza Unknown 12/31/2020 Administered Social History Tobacco Use: Social History Observation Description Date Details (start date - stop date) Never Smoker NA - NA Tobacco Use/Smoking Question Answer Notes Patient is a nonsmoker Alcohol Screen Question Answer Notes Did you have a drink containing alcohol in the p ast year? No Points 0 Interpretation Negative Section Notes: Nonsmoker; no sig alcohol Nonsmoker; no sig alcohol Problems Problem Type SNOMED Code ICD Code Onset Dates Problem Status W/U Status Risk Notes Problem 063754483 Encounter for screening for malignant neoplasm of colon (Z12.11) Active confirmed Problem 850254179 History of adenomatous polyp of colon (Z86.010) Active confirmed Problem 394863902623511 Preprocedural examination (Z01.818) Active confirmed Problem 982352850 Long-term use of aspirin therapy (Z79.82) Active confirmed Problem Diverticulosis of colon (926797548) Diverticulosis of colon (K57.30) Active confirmed Plan Of Treatment Pending Test Test Name Order Date Pathology 07/22/2021 Future Test Test Name Order Date COLONOSCOPY 12/18/2018 COLONOSCOPY 03/17/2021 Insurance Providers Payer Name Payer Address Payer Phone Subscriber Number Group Number Insured Name Patient Relationship to Insured Coverage Start Date Coverage End Date MEDICARE OF [place] [address] [facility] [place] [address] [id number] RYNE AMBRIZ Self - patient is the insured [employer] ATTN CLAIMS [address] [place] [address] [id number] RYNE AMBRIZ Self - patient is the insured Medical (General) History Medical History History ICD Code Denies CA,CVA,Lung disease,renal disease Sleep apnea-uses CPAP NIDDM UTI HTN Anxiety Hyperlipidemia Colonoscopy in 2003 with a s mall tubular adenoma removed; neg. colonoscopy in 2010 Cortisone injection in knee left Surgical History Surgery Date(Month/Year) Cataract-lens implants- left eye
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
== END 2024-06-11 09:40 | disposition home or self-care (01) ==
LOC: HO.HMCHD 09:06
PROVIDERS: PCP Internal Medicine; Visit Provider Internal Medicine
DX: S39.011A Strain of muscle, fascia and tendon of abdomen, initial encounter (principal)

== ENCOUNTER → 2024-06-11 09:06 | Outpatient (BNVA) | payer MEDICARE, SELFPAY | PROVIDERS: PCP Internal Medicine; Visit Provider Internal Medicine | DX: S39.011A Strain of muscle, fascia and tendon of abdomen, initial encounter (principal) | CPT/HCPCS: 99212 ==

== ENCOUNTER 2024-06-13 23:09 | Emergency (ER) | payer MEDICARE, SELFPAY ==
--- NOTE | ~2024-06-13 | CT_ITS ---
CLINICAL HISTORY: Right lower quadrant pain etiology?? CT abdomen and pelvis without contrast Comparison: CT/KS/SR - CT ABDOMEN PELVIS WO IV CON - 12/07/22 14:43 EDT Findings: There is minimal atelectasis in the right lower lobe. There is mild hepatic steatosis. The gallbladder, pancreas, spleen, and kidneys are unremarkable. There is in unchanged small left adrenal adenoma. Right adrenal gland is unremarkable. There is colonic diverticulosis. There is no acute diverticulitis. The appendix is not definitely visualized. There are no findings of acute appendicitis. There is no free fluid or free air. The aorta is normal in diameter. There are no enlarged lymph nodes. Uterus and ovaries are atrophic. There are degenerative changes of the lumbar spine. There is no fracture or suspicious lytic or sclerotic lesion. IMPRESSION: 1. No acute abnormality in the abdomen or pelvis. 2. Chronic findings as above. This document has been electronically signed by: Vikash Ramos MD on 06/14/2024 02:54:58
[2024-06-13 23:11] VITALS: BP 166/74; PULSE 82; RESP 18; TEMP 36.1; O2SAT 95; BMI 41.9
--- OUTSIDE RECORDS SUMMARY | 2024-06-13 23:27 | XMS_ITS ---
Author Organization [facility] Address [address] [place] [address] Care Team Providers Care Production Or Plant Engineer Name Role Phone Roscoe Rahman MD Primary Care Provider Griselda Dillon Unavailable [phone] Allergies No Known Allergies REASON FOR VISIT [...] Ordered Date Performed Result Body Sit e 99536-KSKMGMF NAIL, 6 OR MORE 01/22/2024 N/A 34668-HRHJ SKIN LESIONS, OVER 4 01/22/2024 N/A Encounters Encounter Location Date Provider Diagnosis [facility] [address] [address] 01/22/2024 Griselda Bazzi Xerosis of skin L85.3 [...] days Pending Test Test Name Order Date 23561-HVSPGNJ NAIL, 6 OR MORE 01/22/2024 48721-ZBWV SKIN LESIONS, OVER 4 01/22/20 24 Next Appt Details Follow Up: 4 Months, Reason: Provider Name:Agustin Whiteside , 08/26/2024 09:00:00 AM, [address] [place] [address], [place], [address], Procedure Notes * Category Sub-Category Detail Notes Debride Nail 6-10 Nail debridement Performance o f this nail treatment by a nonprofessional would put this patients foot and overall health at risk. Therefore, nail debridement was performed extensively to reduce/remove overall nail length, girth, thickness, subungual debris, and necrotic tissue, by manual and/or electrical means through the use of a nail nipper and/or dremel-type card grinder helper, to a more viable healthy nail plate or bed tissue 6-10. Silver nitrate used for any petechial bleeding as necessary. Definitive antifungal treatment options have been reviewed and discussed with the patient. The patient chooses, no pharmaceutical tx - 48027 Patient chooses debridement treatmen t only; no pharmaceutical tx Keratoma Treatment Parring or Cutting o f Benign Hyperkeratotic Lesion(s) (-57) More than 4 Lesions - The Benign hyperkeratotic lesions, as described above were pared, and/or cut utilizing a sterile 15 blade, tissue nippers, and/or dremel - 91651 Progress Notes * Heide ROMERO ADOB:08/1950 (73 yo F)Acc No.[id number]:01/22/2024 Progress Note Patient:Heide Durant Provider:?Griselda Bazzi DPM :1950???Age:73 Y???Sex:Female D ate:01/22/2024 Address:[address] [place] [address] Julio [id number] Pcp:Roscoe Rahman MD Subjective: * Chief Complaints: [...] ?Exercise: yes. ?Marital status: single. ?Occupation: retired, [employer]. * Medications:?TakingAspir-81 Bone Smart Felodipine [...] use of a nail nipper and/or dremel-type card grinder helper, to a more viable healthy nail plate or bed tissue 6-10. Silver nitrate used for any petechial bleeding as necessary. Definitive antifungal treatment options have been reviewed and discussed with the patient. The patient chooses, no pharmaceutical tx - 20198.?Patient chooses ?debridement treatment only; no pharmaceutical tx.?Keratoma Treatment:?Parring or Cutting of Benign Hyperkeratotic Lesion(s)?(-57) More than 4 Lesions - The Benign hyperkeratotic lesions, as described above were pared, and/or cut utilizing a sterile 15 blade, tissue nippers, and/or dremel - 15895.? * Procedure Codes:?28326 DEBRI DE NAIL, 6 OR MORE, Modifiers: XS 78428 TRIM SKIN LESIONS, OVER 4, Modifiers: XS [...] Bazzi DPM Date:?1 Generated for Jada pierce/Eula/Jacintoitting on:?06/13/2024 11:27 PM EDT History and Physical Notes * HPI [...]
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
--- OUTSIDE RECORDS SUMMARY | 2024-06-13 23:27 | XMS_ITS | Patient Health Record ---
Author Organization [facility] Address [address] [place] [address] Care Team Providers Care Electric Distribution Engineer Name Role Phone Roscoe Rahman MD Primary Care Provider Omid Garcia Unavailable [phone] Allergies No Known Allergies Reason For Referral [...] Problem Status W/U Status Risk Notes Problem 941224082 Encounter for screening for malignant neoplasm of colon (Z12.11) Active confirmed Problem 204028114 History of adenomatous polyp of colon (Z86.010) Active confirmed Problem 611312706578450 Preprocedural examination (Z01.818) Active confirmed Problem 283535990 Long-term use of aspirin therapy (Z79.82) Active confirmed Problem Diverticulosis of colon (365881066) Diverticulosis of colon (K57.30) Active confirmed Plan Of Treatment Pending Test Test Name Order Date Pathology 07/22/2021 Future Test Test Name Order Date COLONOSCOPY 12/18/2018 COLONOSCOPY 03/17/2021 Insurance Providers Payer Name Payer Address Payer Phone Subscriber Number Group Number Insured Name Patient Relationship to Insured Coverage Start Date Coverage End Date MEDICARE OF [place] [address] [place] [address] [id number] RYNE AMBRIZ Self - patient is the insured [employer] CLAIMS [address] [place] [phone] [id number] RYNE AMBRIZ Self - patient is the insured Medical (General) History Medical History History ICD Code Denies CO,CVA,Lung disease,renal disease Sleep apnea-uses CPAP NIDDM UTI HTN Anxiety Hyperlipidemia Colonoscopy in 2003 with a s mall tubular adenoma removed; neg. colonoscopy in 2010 Cortisone injection in knee left Surgical History Surgery Date(Month/Year) Cataract-lens implants- left eye
--- OUTSIDE RECORDS SUMMARY | 2024-06-13 23:27 | XMS_ITS ---
Author Organization [facility] Address [address] [place] [address] Care Team Providers Care Protocol Manager Name Role Phone Roscoe Rahman MD Primary Care Provider Griselda Dillon Unavailable [phone] Encounters Encounter Location Date Provider Diagnosis [address] [address] 01/08/2024 Griselda Bazzi Plan Of Treatment Next Appt Details Provider Name:Agustin Whiteside , 08/26/2024 09:00:00 AM, [address] [place], [address], Progress Notes * Heide ROMERO ADOB:08/1950 (74 yo F)Acc No.[id number]:01/08/2024 Progress Note Patient:?KATINA Heide Ayon Provider:?Griselda Bazzi DPM :1950???Age:73 Y???Sex:Female D ate:01/08/2024 Address:[address] [place] [id number] Pcp:Roscoe Rahman MD Subjective: * Chief Complaints: [...] Bazzi DPM Date:?1 Generated for Jada pierce/Eula/Benji on:?06/13/2024 11:26 PM EDT
[2024-06-13 23:30] LABS: Basophils Absolute Auto 0.1 X10*3/uL (0.0-0.2); Basophils Percent Auto 0.6 % (0-2); Eosinophils Absolute Auto 0.3 X10*3/uL (0.0-0.4); Eosinophils Percent Auto 2.5 % (0-4); Hematocrit 37.6 % (37.0-47.0); Hemoglobin 12.1 g/dl (12.0-16.0); Imm Gran Abs Auto 0.04 X10*3/uL (0.00-0.03); Imm Gran Pct Auto 0.4 % (0.0-0.4); Lymphocytes Absolute Auto 3.2 X10*3/uL (1.2-4.9); Lymphocytes Percent Auto 28.9 % (20-40); MANUAL DIFF FLAG NO; Mean Corpuscular HGB Conc 32.2 g/dl (31.0-35.0); Mean Corpuscular Hemoglobin 27.3 pg (27.0-33.0); Mean Corpuscular Volume 84.7 fL (80.0-98.0); Mean Platelet Volume 9.1 fL (9.4-12.3); Monocytes Absolute Auto 0.9 X10*3/uL (0.1-1.2); Monocytes Percent Auto 8.3 % (2-11); Neutrophils Absolute Auto 6.5 x10*3/uL (2.0-8.3); Neutrophils Percent Auto 59.3 % (45-73); Platelet Count 333 X10*3/uL (160-400); Red Blood Count 4.44 X10*6/uL (4.20-5.50); Red Cell Distribution Width 13.6 % (11.0-16.0)
[2024-06-13 23:46] LABS: Alanine Aminotransferase 24 U/L (0-31); Albumin Level 3.9 g/dL (3.5-5.0); Alkaline Phosphatase 60 U/L (39-117); Anion Gap 14 (12-20); Aspartate Amino Transferase 19 U/L (5-31); Bilirubin Total 0.1 mg/dL (0.0-1.0); Blood Urea Nitrogen 26 mg/dL (9-16); Calcium 9.1 mg/dL (8.4-10.2); Carbon Dioxide 26 mmol/L (22-29); Chloride 103 mmol/L (96-108); Creatinine Clr Calc Pharmacy 78.5; Estimated Glomerular Filt Rate > 60; Glucose Random 166 mg/dL (60-115); Lipase 50 U/L (8-78); Potassium 3.7 mmol/L (3.3-5.1); Sodium 139 mmol/L (135-145); Total Protein 7.5 g/dL (6.5-8.0)
[2024-06-13 23:48] LABS: Appearance Urine Turbid; Color Urine Yellow; Glucose Urine UA Negative (Negative); Leukocyte Esterase Urine Large (3+) (Negative); Nitrite Urine Negative (Negative); UMIC TRIGGER UACC YES; Urine Blood Trace (Negative); Urine Ketones Trace mg/dL (Negative); Urine Protein 30 (1+) mg/dL (Neg-Trace)
[2024-06-13 23:59] LABS: Bacteria Urine 4+ (None Seen); UACC Culture Trigger YES; WBC Urine 21-50 /HPF (0-5)
--- NOTE | 2024-06-14 01:50 | ED_ITS ---
HPI - Abdominal Pain General Chief Complaint: Abdominal Pain Stated Complaint: side pain Time Seen by Provider: 06/14/24 01:31 Source: patient Mode of arrival: ambulatory Limitations: no limitations History of Present Illness ED Provider: HPI narrative: Patient has been having pain in the right lower abdomen for last 10 days no nausea no vomiting no diarrhea no urinary complaints no fever no chills pain started after she lifted some wooden logs for fireplace Related Data Home Medications ?Medication ?Instructions ?Recorded ?Confirmed citalopram 10 mg tablet 10 mg PO DAILY 02/14/21 07/14/21 ketorolac 0.5 % eye drops 1 drp ophthalmic (eye) TID 02/14/21 07/14/21 lisinopril 20 mg tablet 20 mg PO BID 02/14/21 07/14/21 metformin 500 mg tablet 1,000 mg PO BID 02/14/21 07/14/21 simvastatin 10 mg tablet 10 mg PO BEDTIME 02/14/21 07/14/21 aspirin 81 mg chewable tablet 81 mg PO DAILY 07/14/21 07/14/21 cholecalciferol (vitamin D3) 125 125 mcg PO DAILY 07/14/21 07/14/21 mcg (5,000 unit) tablet (Vitamin D3) multivitamin 1 tab PO BID 07/14/21 07/14/21 amlodipine 2.5 mg tablet 2.5 mg PO DAILY 11/13/22 glipizide 5 mg tablet, extended 5 mg PO BID 11/13/22 release 24 hr hydrochlorothiazide 12.5 mg capsule 12.5 mg PO DAILY 11/13/22 primidone 50 mg tablet 50 mg PO BEDTIME 01/31/24 Previous Rx's ?Medication ?Instructions ?Recorded naproxen 500 mg tablet 500 mg PO BID PRN pain #30 tabs 12/07/22 cyclobenzaprine 10 mg tablet 10 mg PO BEDTIME #14 tabs 06/11/24 cefuroxime axetil 500 mg tablet 500 mg PO BID 7 days #14 tabs 06/14/24 Allergies Allergy/AdvReac Type Severity Reaction Status Date / Time No Known Allergies Allergy Verified 06/13/24 23:13 Review of Systems Review of Systems Yes all other systems are reviewed and are negative PMFSH Past Medical History Medical History Hx of head injury Arthritis Elevated cholesterol Anxiety CONCHITA on CPAP Diabetes HTN (hypertension) Surgical History Hx of bilateral cataract extraction Hx of colonoscopy Family History Family History Father Diabetes Heart attack High blood pressure Mother Diabetes Social History Social History Housing: House Alcohol intake: never Patient Tobacco Use Status: Never used Tobacco Smoked in Last 30 Days: No Use of substances other than those prescribed or required for medical reasons: No Advance Directives: No Advance Directives Information Provided: Yes Do you have a plan to hurt others: No Plan service: No Current occupational status: retired Current occupation: rt handed Cognitive needs: No Hearing needs: No Vision needs: Yes (reading glasses) Physical Exam ED Vital Signs: Vital Signs - 24 hr 06/13/24 23:11 06/14/24 02:10 Temperature 97 F 98.7 F Pulse Rate 82 83 Respiratory Rate 18 16 Blood Pressure 166/74 H 150/70 H Pulse Oximetry 95 98 Oxygen Delivery Method Room Air Room Air BMI result Body Mass Index 41.9 Appearance: Alert. Oriented X3. No acute distress. Eyes: PERRLA, No Nystagmus ENT: Pharynx normal. Oral Mucosa moist Neck: Normal inspection. Neck supple. CVS: Normal heart rate and rhythm. Pulses normal. Respiratory: No respiratory distress. Equal air entry bilateral, no wheezing/rales/rhonchi Abdomen: Soft and mild deep tenderness right mid abdomen Bowel sounds are present, no mass palpable, no CVA tenderness Skin: Skin warm and dry. Normal skin color. Normal skin turgor. Extremities: No lower extremity edema. No calf tenderness Neuro: Oriented X 3. No motor deficit. Medical Decision Making Medical Decision Making [facility] Narrative: Patient with right-sided pain workup showed UTI no midline tenderness in the back no history of kidney stone CT scan is negative for acute pathology Differential Diagnosis Differential Diagnoses: The differential diagnosis associated with the presentation includes UTI/kidney stone/diverticulitis/constipation/appendicitis Lab Data [facility] Lab Attestation statement: I reviewed the patient's lab results. 06/13/24 23:24 06/13/24 23:24 Labs: Lab Results 06/13/24 06/13/24 Range/Units 23:24 23:42 WBC 11.0 H (4.8-10.8) X10*3/uL RBC 4.44 (4.20-5.50) X10*6/uL Hgb 12.1 (12.0-16.0) g/dl Hct 37.6 (37.0-47.0) % MCV 84.7 (80.0-98.0) fL MCH 27.3 (27.0-33.0) pg MCHC 32.2 (31.0-35.0) g/dl RDW 13.6 (11.0-16.0) % Plt Count 333 (160-400) X10*3/uL MPV 9.1 L (9.4-12.3) fL Immature Gran % (Auto) 0.4 (0.0-0.4) % Neut % (Auto) 59.3 (45-73) % Lymph % (Auto) 28.9 (20-40) % Sharp % (Auto) 8.3 (2-11) % Eos % (Auto) 2.5 (0-4) % Baso % (Auto) 0.6 (0-2) % Lymph # (Auto) 3.2 (1.2-4.9) X10*3/uL Sharp # (Auto) 0.9 (0.1-1.2) X10*3/uL Eos # (Auto) 0.3 (0.0-0.4) X10*3/uL Baso # (Auto) 0.1 (0.0-0.2) X10*3/uL Abs Immat Gran (auto) 0.04 H (0.00-0.03) X10*3/uL Absolute Neuts (auto) 6.5 (2.0-8.3) x10*3/uL Absolute Nucleated RBC 0.000 (0.0-0.012) X10*3/uL Nucleated RBC % (auto) 0.0 (0.0-0.2) /100WBC Sodium 139 (135-145) mmol/L Potassium 3.7 (3.3-5.1) mmol/L Chloride 103 (96-108) mmol/L Carbon Dioxide 26 (22-29) mmol/L Anion Gap 14 (12-20) BUN 26 H (9-16) mg/dL Creatinine 0.89 (0.5-1.4) mg/dL Estim Creat Clear Calc 78.5 Estimated GFR > 60 Random Glucose 166 H (60-115) mg/dL Calcium 9.1 (8.4-10.2) mg/dL Total Bilirubin 0.1 (0.0-1.0) mg/dL AST 19 (5-31) U/L ALT 24 (0-31) U/L Alkaline Phosphatase 60 (39-117) U/L Total Protein 7.5 (6.5-8.0) g/dL Albumin 3.9 (3.5-5.0) g/dL Lipase 50 (8-78) U/L Urine Color Yellow Urine Appearance Turbid Urine pH 6.0 (5.0-9.0) Ur Specific [place] 1.020 (1.005-1.025) Urine Protein 30 (1+) H (Neg-Trace) mg/dL Urine Glucose (UA) Negative (Negative) mg/dL Urine Ketones Trace (Negative) mg/dL Urine Blood Trace H (Negative) Urine Nitrite Negative (Negative) Ur Leukocyte Esterase Large (3+) H (Negative) Urine RBC 6-10 H (0-2) /HPF Urine WBC 21-50 (0-5) /HPF Ur Squamous Epith Cells 3-5 (0-2) /HPF Urine Bacteria 4+ (None Seen) Hyaline Casts 3-5 (0-2) /LPF Urine Yeast Present Radiology Impression Discussion of test interpretation with radiology: I have reviewed the radiologist's reading. Radiologist Impression: No acute Medications Administered Discontinued Medications Generic Name Dose Route Start Last Admin Trade Name Freq PRN Reason Stop Dose Admin Cefuroxime Axetil 500 mg 06/14/24 01:58 06/14/24 02:06 Cefuroxime Axetil 500 Mg Tablet PO 06/14/24 01:59 500 mg ONCE ONE Administration Discharge Plan Discharge Clinical Impression: Acute UTI Patient Disposition: Home, Self-Care Instructions: Urinary Tract Infection in Older Adults (ED) Additional Instructions: Drink plenty of fluids Antibiotic as prescribed Your CT scan of the abdomen is negative for acute pathology abdominal pain is likely from urinary tract infection Follow with your PCP if not better Prescriptions: New cefuroxime axetil 500 mg tablet 500 mg PO BID 7 Days Qty: 14 0RF No Action multivitamin [One A Day Vitamin] Tablet 1 tab PO BID aspirin 81 mg Tablet,Chewable 81 mg PO DAILY cholecalciferol (vitamin D3) [Vitamin D3] 125 mcg (5,000 unit) Tablet 125 mcg PO DAILY naproxen 500 mg tablet 500 mg PO BID PRN (Reason: pain) Qty: 30 0RF citalopram 10 mg tablet 10 mg PO DAILY lisinopril 20 mg tablet 20 mg PO BID simvastatin 10 mg tablet 10 mg PO BEDTIME metformin 500 mg tablet 1,000 mg PO BID ketorolac 0.5 % drops 1 drp ophthalmic (eye) TID primidone 50 mg tablet 50 mg PO BEDTIME cyclobenzaprine 10 mg tablet 10 mg PO BEDTIME Qty: 14 0RF hydrochlorothiazide 12.5 mg capsule 12.5 mg PO DAILY amlodipine 2.5 mg tablet 2.5 mg PO DAILY glipizide 5 mg tablet extended release 24hr 5 mg PO BID Print Language: Sinhala
[2024-06-14] MEDS: cefuroxime axetiL 500 MG TABLET PO (02:06)
[2024-06-14 02:10] VITALS: BP 150/70; PULSE 83; RESP 16; TEMP 37.1; O2SAT 98
--- NOTE | 2024-06-14 02:10 | PC.NURSE ---
medicated per mar.
--- NOTE | 2024-06-14 02:12 | PC.NURSE ---
pt being taken to Ct scan
--- NOTE | 2024-06-14 02:24 | PC.NURSE ---
pt back from CT Scan
--- NOTE | 2024-06-14 03:39 | PC.NURSE ---
Reviewed discharge instruction with pt. pt verbalized understanding, no sign of distress.
[2024-06-14 03:40] VITALS: BP 150/70; PULSE 83; RESP 16; TEMP 37.1; O2SAT 98
== END 2024-06-14 03:41 | disposition home or self-care (01) ==
PROVIDERS: Emergency Provider Internal Medicine; PCP Internal Medicine
DX: N39.0 Urinary tract infection, site not specified (principal); R10.31 Right lower quadrant pain; R10.2 Pelvic and perineal pain; Z79.899 Other long term (current) drug therapy
CPT/HCPCS: 36415; 74176; 80053; 81001; 83690; 85025; 87086; 99284

== ENCOUNTER → 2024-06-14 01:59 | Outpatient (BNV) | payer MEDICARE, SELFPAY | PROVIDERS: Emergency Provider Internal Medicine; PCP Internal Medicine; Visit Provider Radiology Diagnostic Radiology | DX: R10.31 Right lower quadrant pain (principal) | CPT/HCPCS: 74176 ==

== ENCOUNTER 2024-07-07 08:26 | Emergency (ER) | payer MEDICARE, SELFPAY ==
--- NOTE | ~2024-07-07 | XR_ITS ---
EXAMINATION: XR HIP 1 VIEW RIGHT WITH PELVIS HISTORY: pain COMPARISON: Comparison is made with the prior examination of the pelvis dated 12/11/2019. FINDINGS: Two AP views of the pelvis and two views of the right hip are submitted. Osseous mineralization is normal. There is no fracture or dislocation. There is moderate joint space narrowing of both hips. There is also moderate degenerative change of the symphysis pubis. The soft tissues are unremarkable. XR/XR hip RT w PEL1V IMPRESSION: Moderate joint space narrowing. Electronically signed by: Omid Lai MD 07/07/2024 10:02 AM EDT
[2024-07-07 08:38] VITALS: BP 178/58; PULSE 80; RESP 18; TEMP 36.4; O2SAT 96; BMI 42.6
[2024-07-07 08:54] LABS: MANUAL DIFF FLAG NO
[2024-07-07 08:58] LABS: Basophils Absolute Auto 0.1 X10*3/uL (0.0-0.2); Basophils Percent Auto 0.8 % (0-2); Eosinophils Absolute Auto 0.2 X10*3/uL (0.0-0.4); Eosinophils Percent Auto 2.1 % (0-4); Hematocrit 39.2 % (37.0-47.0); Hemoglobin 12.9 g/dl (12.0-16.0); Imm Gran Abs Auto 0.04 X10*3/uL (0.00-0.03); Imm Gran Pct Auto 0.5 % (0.0-0.4); Lymphocytes Absolute Auto 1.6 X10*3/uL (1.2-4.9); Lymphocytes Percent Auto 19.1 % (20-40); Mean Corpuscular HGB Conc 32.9 g/dl (31.0-35.0); Mean Corpuscular Hemoglobin 27.3 pg (27.0-33.0); Mean Corpuscular Volume 83.1 fL (80.0-98.0); Mean Platelet Volume 9.5 fL (9.4-12.3); Monocytes Absolute Auto 0.6 X10*3/uL (0.1-1.2); Monocytes Percent Auto 6.6 % (2-11); Neutrophils Absolute Auto 6.1 x10*3/uL (2.0-8.3); Neutrophils Percent Auto 70.9 % (45-73); Platelet Count 291 X10*3/uL (160-400); Red Blood Count 4.72 X10*6/uL (4.20-5.50); Red Cell Distribution Width 13.6 % (11.0-16.0); White Blood Count 8.6 X10*3/uL (4.8-10.8)
--- NOTE | 2024-07-07 09:03 | ED_ITS ---
HPI - General Adult General Chief complaint: Abdominal Pain Stated complaint: r side pain Time Seen by Provider: 07/07/24 09:00 Source: patient Mode of arrival: ambulatory Limitations: no limitations History of Present Illness ED Provider: Tricia Hilliard PA-C HPI narrative: 74 year old female with a PMHx aortic stenosis, CONCHITA on CPAP, osteoarthritis of knee presenting to the ED c/o intermittent RLQ/hip pain x 2 weeks. Reports a dull pain without radiation or association with meals that improves with walking. Reports the pain began after carrying wood/cleaning her basement. Denies fevers, chills, chest pain, SOB, N/V, dysuria, hematuria. Patient had a CT scan of the abdomen/pelvis on 06/14/2024. Onset (ago): week(s) (2) Location: abdomen Radiation: non-radiation Quality: dull Pain Consistency: intermittent Relieving factors: movement Exacerbating factors: none Associated symptoms: denies other symptoms Treatments prior to arrival: none Related Data Home Medications ?Medication ?Instructions ?Recorded ?Confirmed ketorolac 0.5 % eye drops 1 drp ophthalmic (eye) TID 02/14/21 07/14/21 lisinopril 20 mg tablet 20 mg PO BID 02/14/21 07/14/21 metformin 500 mg tablet 1,000 mg PO BID 02/14/21 07/14/21 simvastatin 10 mg tablet 10 mg PO BEDTIME 02/14/21 07/14/21 aspirin 81 mg chewable tablet 81 mg PO DAILY 07/14/21 07/14/21 cholecalciferol (vitamin D3) 125 125 mcg PO DAILY 07/14/21 07/14/21 mcg (5,000 unit) tablet (Vitamin D3) multivitamin 1 tab PO BID 07/14/21 07/14/21 amlodipine 2.5 mg tablet 2.5 mg PO DAILY 11/13/22 glipizide 5 mg tablet, extended 5 mg PO BID 11/13/22 release 24 hr hydrochlorothiazide 12.5 mg capsule 12.5 mg PO DAILY 11/13/22 primidone 50 mg tablet 50 mg PO BEDTIME 01/31/24 Previous Rx's ?Medication ?Instructions ?Recorded naproxen 500 mg tablet 500 mg PO BID PRN pain #30 tabs 12/07/22 cyclobenzaprine 10 mg tablet 10 mg PO BEDTIME #14 tabs 06/11/24 cefuroxime axetil 500 mg tablet 500 mg PO BID 7 days #14 tabs 06/14/24 citalopram 10 mg tablet 10 mg PO DAILY #30 tabs 06/23/24 Allergies Allergy/AdvReac Type Severity Reaction Status Date / Time No Known Allergies Allergy Verified 07/07/24 08:41 Review of Systems 2 Constitutional: Constitutional: Reports no additional constitutional complaints, Denies chills, Denies fever(s) and Denies night sweats Eyes: Eyes: Reports no additional eye complaints, Denies blurry vision, Denies change in vision and Denies loss of vision ENT: Denies dizziness Cardiovascular: Cardiovascular: Reports no additional cardiovascular complaints, Denies chest pain, Denies lightheadedness, Denies Loss of Consciousness and Denies dyspnea Respiratory: Respiratory: Reports no additional respiratory complaints and Denies dyspnea Gastrointestinal: Gastrointestinal: Reports no additional gastrointestinal complaints, Denies melena, Denies hematochezia, Denies change in bowel habits, Denies change in stool character and Reports diarrhea Comments: Reports intermittent diarrhea at baseline Genitourinary: Genitourinary: Denies hematuria, Denies urinary frequency, Denies difficulty voiding, Denies dysuria, Denies urinary incontinence, Denies urinary hesitancy and Denies urinary urgency Musculoskeletal: Musculoskeletal: Reports no additional musculoskeletal complaints, Denies numbness and Denies tingling Comments: Reports RLQ/hip pain improves with movement Neurologic: Denies dizziness, Denies loss of vision, Denies numbness and Denies tingling Psychiatric: Psychiatric: Reports no additional psychiatric complaints Endocrine: Endocrine: Reports no additional endocrine complaints Hematologic/Lymphatic: Hematologic/Lymphatic: Reports no additional hematologic/lymphatic complaints Allergic/Immunologic: Allergic/Immunologic: Reports no additional allergic/immunologic complaints [facility] Past Medical History Attestation statement: The following information was validated with the patient. Source: old records reviewed and nursing notes reviewed Medical History Hx of head injury Arthritis Elevated cholesterol Anxiety CONCHITA on CPAP Diabetes HTN (hypertension) Surgical History Hx of bilateral cataract extraction Hx of colonoscopy Family History Family History Father Diabetes Heart attack High blood pressure Mother Diabetes Social History Social History Housing: House Alcohol intake: never Patient Tobacco Use Status: Never used Tobacco service: No Current occupational status: retired Current occupation: rt handed Cognitive needs: No Hearing needs: No Vision needs: Yes (reading glasses) Physical Exam ED Vital Signs: Vital Signs - 24 hr 07/07/24 08:38 07/07/24 13:01 Temperature 97.5 F 97.4 F Pulse Rate 80 72 Respiratory Rate 18 14 Blood Pressure 178/58 H 166/55 H Pulse Oximetry 96 97 Oxygen Delivery Method Room Air Room Air BMI result Body Mass Index 42.6 Const General: cooperative, no acute distress, alert and awake; No acute distress Nutritional Appearance: well nourished Orientation/consciousness: patient oriented x3 Limitations: no limitations HENMT Head: Yes normal to inspection and Yes atraumatic Ears: hearing grossly normal bilaterally and external ears normal General nose exam: Normal external nose present, no nasal discharge noted and no epistaxis Face and sinus: Yes normal facial exam, No abrasion and No laceration Mouth: Normal oral and palatal mucosa present, no drooling and no muffled voice Eyes General: appearance normal, both eyes and all related structures Periorbital: periorbital findings normal Eyelids: Yes eyelids normal Conjunctivae: conjunctivae normal Pupils: Equal, round and reactive pupils present EOM: EOMs intact bilaterally Neck Neck: Yes normal visual inspection, Yes full ROM and Yes no lymphadenopathy Chest Chest palpation & inspection: normal inspection of the chest Resp Effort & Inspection: normal respiratory effort and able to speak in complete sentences Auscultation: clear to auscultation bilaterally Cardio Other: Systolic murmur appreciated. Rate: regular rate GI Other: No TTP, ecchymosis, rash/wounds. Inspection: Yes normal to inspection and No abdominal wall ecchymosis Palpation (GI): Soft to palpation, not firm, nontender, no guarding and not rigid Auscultation: normal bowel sounds General: Yes no CVA tenderness Back/Spine/Pelvis Other: +TTP over right pelvic girdle. Back: no CVA tenderness Neuro General: patient oriented x3, moves all extremities and CN's II-XI intact bilaterally Cranial nerves: Yes Equal, round and reactive pupils present Cognition (Neuro): normal cognition Extrem General: Yes normal to inspection, Yes full ROM and Yes capillary refill normal Psych Appearance: grossly normal Mental Status: mental status grossly normal Affect: normal affect Attitude: cooperative Thought process: Normal thought process present Thought content: Normal thought content present Insight: Good insight present (Psych) Medications Administered Discontinued Medications Generic Name Dose Route Start Last Admin Trade Name Alicia PRN Reason Stop Dose Admin Sodium Chloride 1,000 mls @ 999 mls/hr 07/07/24 09:30 07/07/24 11:15 Ns IV 07/07/24 10:30 Infused .Q1H1M [facility] Infusion Ketorolac Tromethamine 15 mg 07/07/24 09:27 07/07/24 09:57 Ketorolac Tromethamine 15 Mg/Ml Vial IVPUSH 07/07/24 09:28 15 mg ONCE ONE Administration Medical Decision Making Medical Decision Making MDM Narrative: Patient is a 74 year old assigned female at with a history of DM, OA, anxiety, and HTN presenting to the emergency department today with right hip pain that improves with walking. Patient's physical exam showed very minimal pain with palpation of the right pelvic girdle but otherwise unremarkable. Patient's abdomen was soft and non-tender. Patient's blood work was unremarkable. Patient's urine showed no acute process. Patient's right hip / pelvis x-ray showed moderate joint space narrowing. Patient's clinical presentation is most consistent with msk pain vs. right hip pain. There is no evidence of the patient's current clinical presentation being that of an abdominal process. The patient's diarrhea is chronic and has been ongoing much longer than the 2 weeks for which she plans to follow up with her GI specialist. I explained my physical exam findings as well as all test results to the patient. I answered all questions asked by the patient. I stressed the importance of the patient taking her medication as directed (either prescribed or as the over the counter packaging recommends). I stressed the importance of the patient following up with her primary care provider. I stressed the importance of the patient returning to the emergency department immediately if her symptoms were to worsen or if she were to develop any dizziness, shortness of breath, difficulty breathing, chest pain, blurry vision, loss of vision, nausea, vomiting, abdominal pain, fever, chills, back pain, or any other complaints. Patient verbalized agreement and understanding with this treatment plan and discharge. Differential Diagnosis Differential Diagnoses: The differential diagnosis associated with the presentation includes Msk pain Abd pain Hip OA Admission/Observation Consideration of admission/observation: Escalation of care including admission/observation considered Patient would have been admitted to the hospital had her work up had any findings where hospital admission was appropriate and her clinical presentation warranted hospital admission. Lab Data [facility] Lab Attestation statement: I reviewed the patient's lab results. My interpretation of these results are in the [facility] Rationale portion of this note. 07/07/24 08:50 07/07/24 08:50 Labs: Lab Results 07/07/24 07/07/24 Range/Units 08:50 11:54 WBC 8.6 (4.8-10.8) X10*3/uL RBC 4.72 (4.20-5.50) X10*6/uL Hgb 12.9 (12.0-16.0) g/dl Hct 39.2 (37.0-47.0) % MCV 83.1 (80.0-98.0) fL MCH 27.3 (27.0-33.0) pg MCHC 32.9 (31.0-35.0) g/dl RDW 13.6 (11.0-16.0) % Plt Count 291 (160-400) X10*3/uL MPV 9.5 (9.4-12.3) fL Immature Gran % (Auto) 0.5 H (0.0-0.4) % Neut % (Auto) 70.9 (45-73) % Lymph % (Auto) 19.1 L (20-40) % Brown % (Auto) 6.6 (2-11) % Eos % (Auto) 2.1 (0-4) % Baso % (Auto) 0.8 (0-2) % Lymph # (Auto) 1.6 (1.2-4.9) X10*3/uL Brown # (Auto) 0.6 (0.1-1.2) X10*3/uL Eos # (Auto) 0.2 (0.0-0.4) X10*3/uL Baso # (Auto) 0.1 (0.0-0.2) X10*3/uL Abs Immat Gran (auto) 0.04 H (0.00-0.03) X10*3/uL Absolute Neuts (auto) 6.1 (2.0-8.3) x10*3/uL Absolute Nucleated RBC 0.000 (0.0-0.012) X10*3/uL Nucleated RBC % (auto) 0.0 (0.0-0.2) /100WBC Sodium 136 (135-145) mmol/L Potassium 4.6 D (3.3-5.1) mmol/L Chloride 102 (96-108) mmol/L Carbon Dioxide 24 (22-29) mmol/L Anion Gap 15 (12-20) BUN 20 H (9-16) mg/dL Creatinine 1.09 (0.5-1.4) mg/dL Estim Creat Clear Calc 64.7 Estimated GFR 49 Random Glucose 266 H (60-115) mg/dL Calcium 9.2 (8.4-10.2) mg/dL Total Bilirubin 0.3 (0.0-1.0) mg/dL AST 25 (5-31) U/L ALT 21 (0-31) U/L Alkaline Phosphatase 58 (39-117) U/L Total Protein 7.2 (6.5-8.0) g/dL Albumin 3.9 (3.5-5.0) g/dL Lipase 44 (8-78) U/L Urine Color Yellow Urine Appearance Clear Urine pH 5.5 (5.0-9.0) Ur Specific [place] 1.020 (1.005-1.025) Urine Protein Negative (Neg-Trace) mg/dL Urine Glucose (UA) Negative (Negative) mg/dL Urine Ketones Negative (Negative) mg/dL Urine Blood Negative (Negative) Urine Nitrite Negative (Negative) Ur Leukocyte Esterase Moderate (2+) H (Negative) Urine RBC 0-2 (0-2) /HPF Urine WBC 6-10 H (0-5) /HPF Ur Squamous Epith Cells 0-2 (0-2) /HPF Urine Bacteria None Seen (None Seen) Hyaline Casts 0-2 (0-2) /LPF Independent Interpretation I performed an independent interpretation of an: Plain X-Ray Interpretation: My interpretation is in agreement with the radiologist's impression of this imaging study. L EXAMINATION: XR HIP 1 VIEW RIGHT WITH PELVIS HISTORY: pain COMPARISON: Comparison is made with the prior examination of the pelvis dated 12/11/2019. FINDINGS: Two AP views of the pelvis and two views of the right hip are submitted. Osseous mineralization is normal. There is no fracture or dislocation. There is moderate joint space narrowing of both hips. There is also moderate degenerative change of the symphysis pubis. The soft tissues are unremarkable. XR/XR hip RT w [id number] IMPRESSION: Moderate joint space narrowing. Electronically signed by: Omid Lai MD 07/07/2024 10:02 AM EDT RP Dictated By: Omid Lai MD Signed By: Electronically signed by Omid Lai MD 07/07/24 1002 Radiology Impression Discussion of test interpretation with radiology: I have reviewed the radiologist's reading. Tests considered The following testing was considered but not selected: I considered obtaining a CT scan of the abdomen/pelvis however, the patient had a negative scan on 06/14/2024 and her current clinical presentation and work up do not warrant it. I discussed this with the patient who verbalized understanding and agreement with this. Discharge Plan Discharge Clinical Impression: Osteoarthritis, Musculoskeletal pain Patient Disposition: Home, Self-Care Instructions: Osteoarthritis (DC), Musculoskeletal Pain (ED) Additional Instructions: Follow up with your primary care provider. Return to the emergency department immediately if your symptoms worsen or if you develop any numbness, tingling, dizziness, shortness of breath, difficulty breathing, chest pain, blurry vision, loss of vision, nausea, vomiting, abdominal pain, fever, chills, back pain, or any other complaints. Please see the information below about our Patient Portal. If you are not yet enrolled in the [facility] Patient Portal, you will receive an enrollment email invitation following your visit to any [facility] setting. You may also self-enroll in the Patient Portal by visiting our website: [email or web address] The following information is required to access the Patient Portal: - Your [facility] Medical Record Number - Your personal home email address (must match what is in your electronic medical record, Registration staff can assist with this) - Name - Date of Capabilities of the Patient Portal: - Message some providers - View upcoming appointments - Access your health summary, medical history, and visit history - View current conditions and allergies - View procedure and lab results - View your medications, including guidelines, side effects, and precautions - Complete pre-appointment questionnaires requested by your provider - Ready summary reports of your office visits and procedures To access the Patient Portal Mobile [employer], follow these directions: - Search [employer] in the [employer] Store or Google Play Store - Download the [employer] - Search for [facility] - Enter your login/password Prescriptions: No Action citalopram 10 mg tablet 10 mg PO DAILY Qty: 30 0RF multivitamin [One A Day Vitamin] Tablet 1 tab PO BID aspirin 81 mg Tablet,Chewable 81 mg PO DAILY cholecalciferol (vitamin D3) [Vitamin D3] 125 mcg (5,000 unit) Tablet 125 mcg PO DAILY naproxen 500 mg tablet 500 mg PO BID PRN (Reason: pain) Qty: 30 0RF cefuroxime axetil 500 mg tablet 500 mg PO BID 7 Days Qty: 14 0RF lisinopril 20 mg tablet 20 mg PO BID simvastatin 10 mg tablet 10 mg PO BEDTIME metformin 500 mg tablet 1,000 mg PO BID ketorolac 0.5 % drops 1 drp ophthalmic (eye) TID primidone 50 mg tablet 50 mg PO BEDTIME cyclobenzaprine 10 mg tablet 10 mg PO BEDTIME Qty: 14 0RF hydrochlorothiazide 12.5 mg capsule 12.5 mg PO DAILY amlodipine 2.5 mg tablet 2.5 mg PO DAILY glipizide 5 mg tablet extended release 24hr 5 mg PO BID Referrals: Manan Riley MD [Primary Care Provider] - Interventions: ED Discharge Assessment Last Done: 07/07/24 13:01 Discharge Date/Time: 07/07/24 13:11 Print Language: [place]
[2024-07-07 09:28] LABS: Alanine Aminotransferase 21 U/L (0-31); Albumin Level 3.9 g/dL (3.5-5.0); Alkaline Phosphatase 58 U/L (39-117); Anion Gap 15 (12-20); Aspartate Amino Transferase 25 U/L (5-31); Bilirubin Total 0.3 mg/dL (0.0-1.0); Blood Urea Nitrogen 20 mg/dL (9-16); Calcium 9.2 mg/dL (8.4-10.2); Carbon Dioxide 24 mmol/L (22-29); Chloride 102 mmol/L (96-108); Creatinine Clr Calc Pharmacy 64.7; Estimated Glomerular Filt Rate 49; Glucose Random 266 mg/dL (60-115); Potassium 4.6 mmol/L (3.3-5.1); Sodium 136 mmol/L (135-145); Total Protein 7.2 g/dL (6.5-8.0)
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
--- OUTSIDE RECORDS SUMMARY | 2024-07-07 09:41 | XMS_ITS ---
Author Organization [facility] Address [address] [place] [address] Care Team Providers Care Bird Cage Assembler Name Role Phone Roscoe Rahman MD Primary Care Provider Griselda Dillon Unavailable [phone] Encounters Encounter Location Date Provider Diagnosis [address] [address] 01/08/2024 Grsielda Bazzi Plan Of Treatment Next Appt Details Provider Name:Agustin Whiteside , 08/26/2024 09:00:00 AM, [address] [place], [address], Progress Notes * Heide ROMERO ADOB:08/1950 (74 yo F)Acc No.[id number]:01/08/2024 Progress Note Patient:?KATINA Heide Ayon Provider:?Griselda Bazzi DPM :1950???Age:73 Y???Sex:Female D ate:01/08/2024 Address:[address] [place] [address] Pcp:Roscoe Rahman MD Subjective: * Chief Complaints: [...] Bazzi DPM Date:?1 Generated for Jada pierce/Eula/Benji on:?07/07/2024 09:40 AM EDT
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
--- OUTSIDE RECORDS SUMMARY | 2024-07-07 09:41 | XMS_ITS | Patient Health Record ---
Author Organization [facility] Address [address] [place] [address] Care Team Providers Care Animation Director Name Role Phone Roscoe Rahman MD Primary Care Provider Omid Garcia Unavailable [phone] Allergies No Known Allergies Reason For Referral [...] Problem Status W/U Status Risk Notes Problem 274036086 Encounter for screening for malignant neoplasm of colon (Z12.11) Active confirmed Problem 771781456 History of adenomatous polyp of colon (Z86.010) Active confirmed Problem 573264059413583 Preprocedural examination (Z01.818) Active confirmed Problem 744463824 Long-term use of aspirin therapy (Z79.82) Active confirmed Problem Diverticulosis of colon (160162553) Diverticulosis of colon (K57.30) Active confirmed Plan Of Treatment Pending Test Test Name Order Date Pathology 07/22/2021 Future Test Test Name Order Date COLONOSCOPY 12/18/2018 COLONOSCOPY 03/17/2021 Insurance Providers Payer Name Payer Address Payer Phone Subscriber Number Group Number Insured Name Patient Relationship to Insured Coverage Start Date Coverage End Date MEDICARE OF [place] [address] [facility] [place] [address] [id number] RYNE AMBRIZ Self - patient is the insured [employer] ATT[employer] CLAIMS [address] [place] [address] [phone] [id number] RYNE AMBRIZ Self - patient is the insured Medical (General) History Medical History History ICD Code Denies AL,CVA,Lung disease,renal disease Sleep apnea-uses CPAP NIDDM UTI HTN Anxiety Hyperlipidemia Colonoscopy in 2003 with a s mall tubular adenoma removed; neg. colonoscopy in 2010 Cortisone injection in knee left Surgical History Surgery Date(Month/Year) Cataract-lens implants- left eye
[2024-07-07 09:45] LABS: Lipase 44 U/L (8-78)
[2024-07-07] MEDS: 0.9 % Sodium Chloride 1,000 ML 999 ML IV (09:57)
[2024-07-07] MEDS: Ketorolac Tromethamine 15 MG/ML VIAL IVPUSH (09:57)
--- NOTE | 2024-07-07 10:01 | PC.NURSE ---
right hip/pelvis pain. worse when sitting up in bed. able to ambulate. IV established, medicated per the MAR with fluids infusing. call garvey within reach
--- NOTE | 2024-07-07 11:39 | PC.NURSE ---
patient provided with water to obtain urine sample
[2024-07-07 12:05] LABS: Appearance Urine Clear; Color Urine Yellow; Glucose Urine UA Negative (Negative); Leukocyte Esterase Urine Moderate (2+) (Negative); Nitrite Urine Negative (Negative); PH 5.5 (5.0-9.0); UMIC TRIGGER UACC YES; Urine Blood Negative (Negative); Urine Ketones Negative (Negative); Urine Protein Negative (Neg-Trace)
[2024-07-07 12:07] LABS: Bacteria Urine None Seen (None Seen); Hyaline Casts Urine 0-2 /LPF (0-2); RBC Urine 0-2 /HPF (0-2); Squamous Epithelial Cell Urine 0-2 /HPF (0-2); UACC Culture Trigger YES
[2024-07-07 13:01] VITALS: BP 166/55; PULSE 72; RESP 14; TEMP 36.3; O2SAT 97
== END 2024-07-07 13:11 | disposition home or self-care (01) ==
PROVIDERS: Physician Assistant Medical; Emergency Provider Emergency Medicine; PCP Internal Medicine
DX: M16.11 Unilateral primary osteoarthritis, right hip (principal); R10.31 Right lower quadrant pain; M79.10 Myalgia, unspecified site; R11.2 Nausea with vomiting, unspecified; M25.551 Pain in right hip; Z79.899 Other long term (current) drug therapy
CPT/HCPCS: 36415; 73502; 80053; 81001; 81003; 83690; 85025; 87086; 96361; 96374; 99284; 99285; J1885

== ENCOUNTER → 2024-07-07 09:27 | Outpatient (BNV) | payer MEDICARE, SELFPAY | PROVIDERS: Emergency Provider Emergency Medicine; PCP Internal Medicine; Visit Provider Radiology Diagnostic Radiology | DX: M24.851 Other specific joint derangements of right hip, not elsewhere classified (principal) | CPT/HCPCS: 73502 ==

== ENCOUNTER 2024-07-16 10:41 | Outpatient (AMB) | payer MEDICARE, SELFPAY ==
--- NOTE | 2024-07-16 10:43 | A.OFFVIS_ITS ---
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/ Nonrheumatic aortic (valve) stenosis Allergies acetaminophen [From Tylenol] Allergy (Verified 07/16/24 11:12) Diarrhea Medication List - Last Reconciled 07/16/24 by Edgardo Tillman MD amlodipine 2.5 mg PO DAILY aspirin 81 mg PO DAILY cefuroxime axetil 500 mg PO BID 7 days cholecalciferol (vitamin D3) (Vitamin D3) 125 mcg PO DAILY citalopram 10 mg PO DAILY cyclobenzaprine 10 mg PO BEDTIME glipizide ER 5 mg PO BID hydrochlorothiazide 12.5 mg PO DAILY ketorolac 0.5% 1 drp ophthalmic (eye) TID lisinopril 20 mg PO BID metformin 1,000 mg PO BID multivitamin 1 tab PO BID naproxen 500 mg PO BID PRN primidone 50 mg PO BEDTIME simvastatin 10 mg PO BEDTIME HPI Comments Details: The patient is a 74-year-old female presenting with episodes of palpitations and exertional dyspnea. The palpitations, characterized as a fluttering feeling in the chest, began approximately six months ago and occur without specific triggers. Additionally, she has experienced progressive dyspnea on exertion, limiting her ability to walk even short distances. This exertional limitation became marked following a back injury in the late summer of last year, after which her functional status gradually decreased. She denies episodes of syncope, chest pain, or dizziness. The patient has a history of essential hypertension, diabetes mellitus, obstructive sleep apnea, arthritis. She also apparently developed essential tremors recently and there is some correlation between the onset of shortness of breath and the tremors. Not clear however if they are truly related or not. [facility] Medical History (Updated 07/16/24 @ 12:00 by Edgardo Tillman MD) Hx of head injury Arthritis Elevated cholesterol Anxiety CONCHITA on CPAP Diabetes HTN (hypertension) Surgical History Hx of bilateral cataract extraction Hx of colonoscopy Family History Father Diabetes Heart attack High blood pressure Mother Diabetes Social History Housing: House Alcohol intake: never Patient Tobacco Use Status: Never used Tobacco service: No Current occupational status: retired Current occupation: rt handed Cognitive needs: No Hearing needs: No Vision needs: Yes (reading glasses) Review of Systems Const Denies weakness ENT Denies dizziness Card Denies chest pain, Denies chest pain with activity, Denies syncope, Denies rapid heart rate, Denies pedal edema, Denies edema, Denies leg edema, Denies lightheadedness, Reports palpitations, Reports dyspnea, Reports dyspnea on exertion and Denies orthopnea Resp Denies cough, Reports dyspnea and Reports dyspnea on exertion GI Denies hematochezia and Denies change in stool character Musc Denies abnormal gait, Denies muscle cramps, Denies muscle weakness, Denies numbness, Denies radiating pain into limb and Denies tingling Neuro Denies abnormal gait, Denies dizziness, Denies syncope, Denies numbness, Denies tingling and Denies weakness Endo Reports palpitations Physical Exam Vital Signs: Last Vital Signs Pulse 71 07/16/24 10:44 BP 122/60 07/16/24 10:44 BMI result Body Mass Index 41.2 Const General: comfortable and no acute distress Orientation/consciousness: patient oriented x3 HEENT Other: Unremarkable Head: Yes normal to inspection Neck Neck: Yes normal visual inspection Chest Chest palpation & inspection: normal inspection of the chest Resp Auscultation: clear to auscultation bilaterally Cardio Palpation: normal PMI Heart sounds: S1 normal heart sound present, S2 normal heart sound present, no gallops, no murmurs and no rubs GI Palpation (GI): Soft to palpation Back/Spine/Pelvis Other: unremarkable Skin General skin exam: no rashes or lesions noted Neuro General: patient oriented x3 Extrem General: Yes normal to inspection Psych Mental Status: mental status grossly normal Office Procedures EKG Details: EKG with underlying sinus rhythm at 71/Min; no significant ST-T changes and otherwise unremarkable[place] [address]-Bwkgklxaocddnsjxi, Complete Assessment & Plan Assessment & Plan (1) Dyspnea on exertion: Code(s): R06.09 - Other forms of dyspnea Category: Medical Plan: In the echocardiogram, LVEF 60-65%. Moderate left ventricle hypertrophy. Normal diastolic function. Mild aortic stenosis. She could have exercise-induced diastolic dysfunction related to hypertension. Other possibilities just deconditioning. We will check an exercise stress echocardiogram. (2) Heart palpitations: Category: Medical Plan: Could be supraventricular ectopy or ventricular ectopy. Less likely atrial fibrillation but certainly possible. Check Holter monitor. (3) HTN (hypertension): Code(s): I10 - Essential (primary) hypertension Category: Medical Plan: Seems to have high and low readings. Advised to do home readings and bring the diary next time. Plan I discussed with the patient and her family the nature of her symptoms, particularly concerning palpitations and dyspnea on exertion. It appears necessary to conduct a stress test to further evaluate her cardiovascular response to exercise. The patient understands that the purpose of the test is to investigate her symptoms comprehensively. The possible need to adjust blood pressure medication based on her home monitoring performance was also elaborated. We reviewed that her pulmonary evaluation was normal, suggesting a lesser likelihood of respiratory contribution to her symptoms. I advised the patient to maintain detailed records of her blood pressure and blood sugar levels for future assessment. Consent for engaging in additional diagnostic testing with full understanding of the benefits and safety was obtained. Patient was informed and verbally consented to the use of an ambient scribe for clinic note documentation during this visit. Orders: Orders CA echo stress exercise Today R06.09 - Other forms of dyspnea ECG 7 day holter monitor Today R00.2 - Palpitations Patient Instructions: - Participate in the scheduled stress test. - Monitor blood pressure at home weekly, keeping a detailed log. - Continue regular medications for hypertension and diabetes. - Follow-up will be scheduled post-stress test. - Seek immediate medical attention if new symptoms such as chest pain, dizziness, or syncope occur. Coding Level of Care Code New Pt Level 4 (24904) Complex EM visit Add On G2211 Diagnoses Dyspnea on exertion R06.09 Heart palpitations HTN (hypertension) I10 CPT Codes EKG - CPT: 53140-Jznxbyvpxfpdnfube, Complete ([id number])
[2024-07-16 10:44] VITALS: BP 122/60; PULSE 71; BMI 41.2
--- OUTSIDE RECORDS SUMMARY | 2024-07-16 12:38 | XMS_ITS ---
Author Organization [facility] Address [address] [place] [address] Care Team Providers Care Fixed Route Operator Name Role Phone Roscoe Rahman MD Primary Care Provider Griselda Dillon Unavailable [phone] Encounters Encounter Location Date Provider Diagnosis [address] [address] 01/08/2024 Griselda Bazzi Plan Of Treatment Next Appt Details Provider Name:Agustin Whiteside , 08/26/2024 09:00:00 AM, [address] [place], [address], Progress Notes * Heide ROMERO ADOB:08/1950 (74 yo F)Acc No.[id number]:01/08/2024 Progress Note Patient:?KATINA Heide Ayon Provider:?Griselda Bazzi DPM :1950???Age:73 Y???Sex:Female D ate:01/08/2024 Address:[address] [place] [id number] Pcp:Roscoe Rahman MD Subjective: * Chief Complaints: [...] Bazzi DPM Date:?1 Generated for Jada pierce/Eula/Benji on:?07/16/2024 12:38 PM EDT
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
--- OUTSIDE RECORDS SUMMARY | 2024-07-16 12:39 | XMS_ITS | Patient Health Record ---
Author Organization [facility] Address [address] [place] [address] Care Team Providers Care Director Of Assessment Name Role Phone JANET CORONADO Primary Care Provider Omid Rogers Unavailable [phone] Allergies No Known Allergies Reason For Referral [...] Problem Status W/U Status Risk Notes Problem 904889002 Encounter for screening for malignant neoplasm of colon (Z12.11) Active confirmed Problem 977473070 History of adenomatous polyp of colon (Z86.010) Active confirmed Problem 996127859761192 Preprocedural examination (Z01.818) Active confirmed Problem 421974930 Long-term use of aspirin therapy (Z79.82) Active confirmed Problem Diverticulosis of colon (572315172) Diverticulosis of colon (K57.30) Active confirmed Plan Of Treatment Pending Test Test Name Order Date Pathology 07/22/2021 Future Test Test Name Order Date COLONOSCOPY 12/18/2018 COLONOSCOPY 03/17/2021 Next Appt Details Provider Name:Omid Green , 10/23/2024 10:20:00 AM, [address] [place] [address], [address], [place], [address], Insurance Providers Payer Name Payer Address Payer Phone Subscriber Number Group Number Insured Name Patient Relationship to Insured Coverage Start Date Coverage End Date MEDICARE OF [place] [address] [place] [address] [id number] RYNE AMBRIZ Self - patient is the insured [employer] ATT[employer] CLAIMS [address] [place] [address] [phone] [id number] RYNE AMBRIZ Self - patient is the insured Medical (General) History Medical History History ICD Code Denies PA,CVA,Lung disease,renal disease Sleep apnea-uses CPAP NIDDM UTI HTN Anxiety Hyperlipidemia Colonoscopy in 2003 with a s mall tubular adenoma removed; neg. colonoscopy in 2010 Cortisone injection in knee left Surgical History Surgery Date(Month/Year) Cataract-lens implants- left eye
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
== END 2024-07-16 11:48 | disposition home or self-care (01) ==
PROVIDERS: PCP Internal Medicine; Visit Provider Internal Medicine
DX: R06.09 Other forms of dyspnea (principal); I10 Essential (primary) hypertension; I35.0 Nonrheumatic aortic (valve) stenosis; R94.31 Abnormal electrocardiogram [ECG] [EKG]
CPT/HCPCS: 93010; 99214; G2211

== ENCOUNTER → 2024-07-16 10:41 | Outpatient (BNVA) | payer MEDICARE, SELFPAY | PROVIDERS: PCP Internal Medicine; Visit Provider Internal Medicine | DX: R00.2 Palpitations (principal); R06.09 Other forms of dyspnea; I10 Essential (primary) hypertension; E11.9 Type 2 diabetes mellitus without complications; G47.33 Obstructive sleep apnea (adult) (pediatric) | CPT/HCPCS: 93005; 99212 ==

== ENCOUNTER 2024-07-18 08:56 | Outpatient (REF) | payer MEDICARE, SELFPAY ==
[2024-07-19 11:33] LABS: Bacterial Vaginosis PCR NEGATIVE (Negative); Candida Group PCR NOT DETECTED (Not Detect); Candida glab krusei PCR NOT DETECTED (Not Detect); Trichomonas vaginalis PCR NOT DETECTED (Not Detect)
== END 2024-07-18 08:57 | disposition home or self-care (01) ==
LOC: HO.LNP 08:56
PROVIDERS: PCP Internal Medicine; Visit Provider Advanced Practice Midwife
DX: Z01.419 Encounter for gynecological examination (general) (routine) without abnormal findings (principal); N94.89 Other specified conditions associated with female genital organs and menstrual cycle; N89.8 Other specified noninflammatory disorders of vagina
CPT/HCPCS: 81515; 99212; G0101

== ENCOUNTER 2024-07-18 08:56 | Outpatient (AMB) | payer MEDICARE, SELFPAY ==
--- NOTE | 2024-07-18 09:13 | MHC.OFFVIS ---
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 Sewer Hand: Sewer Hand Present (Virginie) Accompanied by: Friend Allergies acetaminophen [From Tylenol] Allergy (Verified 07/18/24 09:19) Diarrhea Medication List - Last Reconciled 07/18/24 by Zuleima Sanchez CNM amlodipine 2.5 mg PO DAILY aspirin 81 mg PO DAILY cefuroxime axetil 500 mg PO BID 7 days cholecalciferol (vitamin D3) (Vitamin D3) 125 mcg PO DAILY citalopram 10 mg PO DAILY cyclobenzaprine 10 mg PO BEDTIME glipizide ER 5 mg PO BID hydrochlorothiazide 12.5 mg PO DAILY ketorolac 0.5% 1 drp ophthalmic (eye) TID lisinopril 20 mg PO BID metformin 1,000 mg PO BID multivitamin 1 tab PO BID naproxen 500 mg PO BID PRN primidone 50 mg PO BEDTIME simvastatin 10 mg PO BEDTIME Is last menstrual period known: No Post menopausal: Yes Patient : No HPI 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 She has no children has never been has never done anything active per her history today. She is brought here today by her friend who is a nurse and neighbor because she has a concern about her possible uterus dropping because she gets frequent urinary tract infections. Her neighbor was suggesting that she get checked to see if she might benefit from a pessary. At the very beginning of this visit I informed them that that is not a skill set I have so she may have been miss scheduled but I will assess things as best I can today for her. Additionally she does have a number of other health concerns including diabetes cardiac issues hypertension. She seems to have an essential tremor today and says that is what it has been diagnosed as she lives alone but has brothers and nieces and nephews and her very good neighbor who has come with her today. 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 She says that she gets frequent urinary tract infections and she can tell because she feels discomfort and burning. [facility] Medical History Hx of head injury Arthritis Elevated cholesterol Anxiety CONCHITA on CPAP Diabetes HTN (hypertension) Surgical History Hx of bilateral cataract extraction Hx of colonoscopy Family History Father Diabetes Heart attack High blood pressure Mother Diabetes Social History Housing: House Alcohol intake: never Patient Tobacco Use Status: Never used Tobacco service: No Current occupational status: retired Current occupation: rt handed Cognitive needs: No Hearing needs: No Vision needs: Yes (reading glasses) Female Reproductive History Menstrual Age of Menarche: 15 control method: none Menopause type: natural Total pregnancies: 0 Physical Exam Vital Signs: Last Vital Signs BP 126/76 07/18/24 09:18 BMI result Body Mass Index 41.2 Const General: healthy appearing, comfortable, no acute distress, well developed and alert Nutritional Appearance: average body habitus Orientation/consciousness: patient oriented x3 Limitations: no limitations HEENT Head: Yes normocephalic Neck Neck: Yes normal visual inspection Thyroid: Thyroid normal Chest Chest palpation & inspection: normal inspection of the chest and normal palpation of entire chest wall Breast/axilla inspection: normal inspection of the breasts and normal inspection of the axillae Breast/axilla palpation: normal palpation of the breasts and normal palpation of the axillae Resp Effort & Inspection: normal respiratory effort GI Inspection: Yes normal to inspection, No Abdominal wall edema and No distended Palpation (GI): Soft to palpation and nontender Other: External vulva is pink slightly dry patient denies any itching at the mucosal or skin surfaces. Adipose tissue noted and some laxity of tissue slight odor noted no abnormal discharge noted vulva pink possibly consistent with yeast but patient denies current itching or burning. Very gentle speculum exam done brief visualization of pink cervix gentle digital exam revealed no descensus of cervix or uterus and patient was not able to reproduce a Kegel well however also when she bore down there was no descensus of the cervix or uterus or bladder. A swab was taken for bacterial vaginosis and yeast which may show bacterial vaginosis but I will provide prescription for Monistat cream and also for Diflucan if the Monistat cream does not work for any questions about urinary tract infections which she does not have symptoms of today I am asking her to speak with her primary care provider. General: Yes bladder normal to palpation External Female Exam: normal external appearance and normal appearance of the urethra Speculum Exam - Vagina: normal appearance of the vagina, normal palpation and normal vaginal discharge Speculum Exam - Cervix: normal appearance of the cervix, normal palpation and nontender Bimanual exam- vagina & uterus: normal bimanual exam, normal palpation, uterine size normal, bladder normal to palpation, consistency normal, normal palpation, uterine mobility normal, uterine shape normal, No Cervical tenderness present, non-tender and no cervical motion tenderness Bimanual Exam- Adnexa, other: normal adnexae, no masses, normal and No adnexal tenderness Neuro General: patient oriented x3 Assessment & Plan Assessment & Plan (1) Diabetes: Code(s): E11.9 - Type 2 diabetes mellitus without complications Category: Medical (2) Vaginal burning: Comment: Occasionally, confusing as patient perceives it as urinary tract infection.... Code(s): N94.89 - Other specified conditions associated with female genital organs and menstrual cycle Category: Medical Plan Please see HPI. Patient has her primary care provider and I urged her to follow with him for any questions of urinary tract infections as she is on a nu mber of medications and with the diabetes, it would be best care to ensure that 1 provider's managing any concerns with a urinary tract infection. Given where she could it describe where she was feeling the burning when she gets it which was not today I think that is some of her symptomology may result in fact from vaginal yeast which would be in keeping with elevated blood sugars from the diabetes teaching done about how the elevated blood sugars promote yeast and that all vaginal burning ?down there? does not necessarily mean a urinary tract infection I am providing a prescription for Diflucan for her but also a prescription for Monistat cream that she can feel free to use whenever she feels she has some burning without worry of overusing it or of other consequence for the Diflucan I urged her to consider use only if the miconazole cream did not work and if she feels any urinary discomfort within her body not in the vulvar area but inside I asked her to seek care from her primary care office. Importantly for the questioned her friend raised as to whether not she might need a pessary I am not a provider who has any proficiency with these so I could not necessarily Opine on their use in this circumstance however I did not appreciate any descensus when I asked her to bear down nor any sense of prolapse of her cervix or uterus or bladder during the limited challenging exam. Admittedly she did find it challenging to do a Kegel as it was a new experience for her however we did discuss overall posture and the role of weight and maintaining her health as best she can. If she does have any other urinary concerns possibly referral to Urology maybe in order. Patient was tearful at times especially at the start of the visit as she was very afraid of having a pelvic exam but she braved her way through it. Orders: Orders Bacterial Vaginosis Panel Today N94.89 - Other specified conditions associated with female genital organs and menstrual cycle Medications: New fluconazole may repeat second dose 72 hrs after first dose if symptoms persist 150 mg PO Q3D 2 tabs 1RF 2 doses miconazole nitrate 2% (Miconazole-7) 1 appful vaginal BEDTIME 45 grams 4RF 7 days Coding Level of Care Code New Pt Prev Care >65yr (04772) Diagnoses Diabetes E11.9 Vaginal burning N94.89 Time Spent (min) 60 Comment Much explaining of exam and findings
[2024-07-18 09:18] VITALS: BP 126/76; BMI 41.2
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
--- OUTSIDE RECORDS SUMMARY | 2024-07-18 09:20 | XMS_ITS ---
Author Organization [facility] Address [address] [place] [address] Care Team Providers Care Senior Oracle Dba Name Role Phone Roscoe Rahman MD Primary Care Provider Griselda Dillon Unavailable [phone] Encounters Encounter Location Date Provider Diagnosis [address] [address] 01/08/2024 Griselda Bazzi Plan Of Treatment Next Appt Details Provider Name:Agustin Whiteside , 08/26/2024 09:00:00 AM, [address] [place], [address], Progress Notes * Heide ROMERO ADOB:08/1950 (74 yo F)Acc No.[id number]:01/08/2024 Progress Note Patient:?KAITNA Heide Ayon Provider:?Griselda Bazzi DPM :1950???Age:73 Y???Sex:Female D ate:01/08/2024 Address:[address] [place] [id number] Pcp:Roscoe Rahman MD Subjective: * Chief Complaints: [...] Bazzi DPM Date:?1 Generated for Jada pierce/Eula/Benji on:?07/18/2024 09:19 AM EDT
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
--- OUTSIDE RECORDS SUMMARY | 2024-07-18 09:20 | XMS_ITS | Patient Health Record ---
Author Organization [facility] Address [address] [place] [address] Care Team Providers Care Incising Machine Operator Name Role Phone JANET CORONADO Primary Care Provider Omid Rogers Unavailable [phone] Allergies No Known Allergies Reason For Referral [...] Problem Status W/U Status Risk Notes Problem 003883150 Encounter for screening for malignant neoplasm of colon (Z12.11) Active confirmed Problem 207858267 History of adenomatous polyp of colon (Z86.010) Active confirmed Problem 661139422476097 Preprocedural examination (Z01.818) Active confirmed Problem 801863792 Long-term use of aspirin therapy (Z79.82) Active confirmed Problem Diverticulosis of colon (801470579) Diverticulosis of colon (K57.30) Active confirmed Plan Of Treatment Pending Test Test Name Order Date Pathology 07/22/2021 Future Test Test Name Order Date COLONOSCOPY 12/18/2018 COLONOSCOPY 03/17/2021 Next Appt Details Provider Name:Omid Green , 10/23/2024 10:20:00 AM, [address] [place] [address], [address], [place], [address], Insurance Providers Payer Name Payer Address Payer Phone Subscriber Number Group Number Insured Name Patient Relationship to Insured Coverage Start Date Coverage End Date MEDICARE [place] [address] [place] [address] [id number] RYNE AMBRIZ Self - patient is the insured MEDEX ATTN CLAIMS [address] [place] [address] [id number] RYNE AMBRIZ Self - patient is the insured Medical (General) History Medical History History ICD Code Denies [place],CVA,Lung disease,renal disease Sleep apnea-uses CPAP NIDDM UTI HTN Anxiety Hyperlipidemia Colonoscopy in 2003 with a s mall tubular adenoma removed; neg. colonoscopy in 2010 Cortisone injection in knee left Surgical History Surgery Date(Month/Year) Cataract-lens implants- left eye
== END 2024-07-18 10:45 | disposition home or self-care (01) ==
LOC: HO.HWS 08:56
PROVIDERS: PCP Internal Medicine; Visit Provider Advanced Practice Midwife
DX: Z01.419 Encounter for gynecological examination (general) (routine) without abnormal findings (principal); N94.89 Other specified conditions associated with female genital organs and menstrual cycle; E11.9 Type 2 diabetes mellitus without complications
CPT/HCPCS: 99213; G0101

== ENCOUNTER 2024-07-24 08:46 | Outpatient (AMB) | payer MEDICARE, SELFPAY ==
--- NOTE | 2024-07-24 08:58 | AM.OFFWIN_ITS ---
Intake Vital Signs 07/24/24 09:03 Weight 274 lb BP 112/60 Blood Pressure Location Rt brachial Position Sitting Pulse 74 Pulse Source Pulse Oximeter Pulse Oximetry (%) 96 Oxygen Delivery Method Room Air Intake Visit Reasons: EP Rt ankle pain Intake Note: Patient here for right ankle pain that started yesterday. Patient Tobacco Use Status: Never used Tobacco Allergies acetaminophen [From Tylenol] Allergy (Verified 07/24/24 09:03) Diarrhea Do you need a note to return to daycare/school/sports/work: No HPI HPI Comments History of Present Illness Details 74 y/o Female patient who presents to [facility] walk in clinic with c/o right Ankle pain and swelling since yesterday Morning. Denies injury or Trauma to the Limb. Reports pain with walking and standing. She does have h/o OA on joints and Varicose Veins B/L Lower extremities. [facility] Medical History (Updated 07/24/24 @ 09:26 by Heide Laguerre NP) Osteoarthritis of right ankle Hx of head injury Arthritis Elevated cholesterol Anxiety CONCHITA on CPAP Diabetes HTN (hypertension) Surgical History (Updated 07/22/24 @ 18:10 by Marcela Miller) Hx of bilateral cataract extraction Hx of colonoscopy (~07/22/21) Family History Father Diabetes Heart attack High blood pressure Mother Diabetes Social History Housing: House Alcohol intake: never Patient Tobacco Use Status: Never used Tobacco service: No Current occupational status: retired Current occupation: rt handed Cognitive needs: No Hearing needs: No Vision needs: Yes (reading glasses) Female Reproductive History Menstrual Age of Menarche: 15 Review of Systems Const All systems reviewed & are unremarkable except as noted in HPI and below Physical Exam Vital Signs: Last Vital Signs Pulse 74 07/24/24 09:03 BP 112/60 07/24/24 09:03 Pulse Ox 96 07/24/24 09:03 Oxygen Delivery Method Room Air 07/24/24 09:03 Const General: no acute distress Nutritional Appearance: obese morbidly obese Orientation/consciousness: patient oriented x3 Neuro General: patient oriented x3, moves all extremities and other (Walks with a Cane.) Extrem Right lower extremity: lower leg (Varicose Veins present), ankle Details: tenderness Location: posteriorly, no edema and normal ROM; no swelling, no ecchymosis and no crepitus and foot Left lower extremity: full ROM, normal capillary refill and lower leg (Varicose Veins Present) Psych Speech and movement: Normal speech and movement present Assessment & Plan Assessment & Plan (1) Osteoarthritis of right ankle: Code(s): M19.071 - Primary osteoarthritis, right ankle and foot Qualifiers: Osteoarthritis type: primary Qualified Code(s): M19.071 - Primary osteoarthritis, right ankle and foot Plan: Acetaminophen or NSAIDs for pain relief. Compression Stockings to Help promote circulation Elevate Lower Limbs when sitting. Apply Ice/Heat Coding Level of Care Code Est Pt Level 4 (40691) Diagnoses Primary osteoarthritis of right ankle M19.071 Osteoarthritis type: primary Time Spent (min) 20
[2024-07-24 09:03] VITALS: BP 112/60; PULSE 74; O2SAT 96
--- OUTSIDE RECORDS SUMMARY | 2024-07-24 09:14 | XMS_ITS | Patient Health Record ---
Author Organization [facility] Address [address] [place] [address] Care Team Providers Care Wage And Hour Investigator Name Role Phone JANET CORONADO Primary Care Provider Omid Rogers Unavailable [phone] Allergies No Known Allergies Reason For Referral [...] Problem Status W/U Status Risk Notes Problem 580013844 Encounter for screening for malignant neoplasm of colon (Z12.11) Active confirmed Problem 074135786 History of adenomatous polyp of colon (Z86.010) Active confirmed Problem 960749519012577 Preprocedural examination (Z01.818) Active confirmed Problem 207315540 Long-term use of aspirin therapy (Z79.82) Active confirmed Problem Diverticulosis of colon (615603483) Diverticulosis of colon (K57.30) Active confirmed Plan Of Treatment Pending Test Test Name Order Date Pathology 07/22/2021 Future Test Test Name Order Date COLONOSCOPY 12/18/2018 COLONOSCOPY 03/17/2021 Next Appt Details Provider Name:Omid Green , 10/23/2024 10:20:00 AM, [address] [place] [address], [address], [place], [address], Insurance Providers Payer Name Payer Address Payer Phone Subscriber Number Group Number Insured Name Patient Relationship to Insured Coverage Start Date Coverage End Date [place] OF [place] [address] [place] [address] [id number] RYNE AMBRIZ Self - patient is the insured MEDEX ATTN CLAIMS [address] [place] [address] [id number] RYNE AMBRIZ Self - patient is the insured Medical (General) History Medical History History ICD Code Denies [place],CVA,Lung disease,renal disease Sleep apnea-uses CPAP NIDDM UTI HTN Anxiety Hyperlipidemia Colonoscopy in 2003 with a s mall tubular adenoma removed; neg. colonoscopy in 2010 Cortisone injection in knee left Surgical History Surgery Date(Month/Year) Cataract-lens implants- left eye
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
--- OUTSIDE RECORDS SUMMARY | 2024-07-24 09:14 | XMS_ITS ---
Author Organization [facility] Address [address] [place] [address] Care Team Providers Care Radiology Receptionist Name Role Phone Roscoe Rahman MD Primary Care Provider Griselda Dillon Unavailable [phone] Encounters Encounter Location Date Provider Diagnosis [address] [address] 01/08/2024 Griselda Bazzi Plan Of Treatment Next Appt Details Provider Name:Agustin Whiteside , 08/26/2024 09:00:00 AM, [address] [place], [address], Progress Notes * Heide ROMERO ADOB:08/1950 (74 yo F)Acc No.[id number]:01/08/2024 Progress Note Patient:?KATINA Heide Ayon Provider:?Griselda Bazzi DPM :1950???Age:73 Y???Sex:Female D ate:01/08/2024 Address:[address] [place] [address] Pcp:Roscoe Rahman MD Subjective: * Chief Complaints: [...] Bazzi DPM Date:?1 Generated for Jada pierce/Eula/Benji on:?07/24/2024 09:14 AM EDT
--- OUTSIDE RECORDS SUMMARY | 2024-07-24 09:14 | XMS_ITS ---
Author Organization [facility] Address [address] [place] [address] Care Team Providers Care Boring Machine Operator Helper Name Role Phone Roscoe Rahman MD Primary Care Provider Griselda Dillon Unavailable [phone] Agustin Whiteside Unavailable [phone] Allergies No Known Allergies REASON FOR VISIT [...] Ordered Date Performed Result Body Sit e 43004-DNVFUPV NAIL, 6 OR MORE 05/23/2024 N/A 15901-PWIE SKIN LESIONS, OVER 4 05/23/2024 N/A Encounters Encounter Location Date Provider Diagnosis [facility] [address] [address] 05/23/2024 Agustin Whiteside Xerosis of skin L85. [...] days Pending Test Test Name Order Date 09146-BTFYCVA NAIL, 6 OR MORE 05/23/2024 99359-PYIS SKIN LESIONS, OVER 4 05/23/19 25 Next Appt Details Follow Up: 4 Months, Reason: Provider Name:Agustin Whiteside , 08/26/2024 09:00:00 AM, [address] [place] [address], [place], [address], Procedure Notes * Category Sub-Category Detail Notes [...] use of a nail nipper and/or dremel-type notch grinder, to a more viable healthy nail [...] to maintain effectiveness in symptomatic relief - 51771 Keratoma Treatment Parring or Cutting o f [...] instrumentation by the physician of record - 84794 Progress Notes * Heide ROMERO ADOB:08/1950 (74 yo F)Acc No.[id number]:05/23/2024 Progress Note Patient:?Heide ROMERO A Provider:?Agustin Whiteside DPM :1950???Age:74 Y???Sex:Female D ate:05/23/2024 Address:[address] [place] [address] Pcp:Roscoe Rahman MD Subjective: * Chief Complaints: [...] ?Exercise: yes. ?Marital status: single. ?Occupation: retired, [employer]. * Medications:?TakingAspir-81 Bone Smart Felodipine [...] use of a nail nipper and/or dremel-type notch grinder, to a more viable healthy nail [...] to maintain effectiveness in symptomatic relief - 14797.?Keratoma Treatment:?Parring or Cutting of Benign Hyperkeratotic Lesion(s)?(-57) [...] instrumentation by the physician of record - 33897.? * Procedure Codes:?44882 DEBRI DE NAIL, 6 OR MORE, Modifiers: XS 23613 TRIM SKIN LESIONS, OVER 4, Modifiers: XS [...] Whiteside DPM Date:?2024 Generated for Jada pierce/Eula/eTransmitting on:?07/24/2024 09:14 AM EDT History and Physical [...]
== END 2024-07-24 09:33 | disposition home or self-care (01) ==
PROVIDERS: PCP Internal Medicine; Visit Provider Nurse Practitioner Family
DX: M19.071 Primary osteoarthritis, right ankle and foot (principal)

== ENCOUNTER → 2024-07-24 08:46 | Outpatient (BNVA) | payer MEDICARE, SELFPAY | PROVIDERS: PCP Internal Medicine; Visit Provider Nurse Practitioner Family | DX: M19.071 Primary osteoarthritis, right ankle and foot (principal) | CPT/HCPCS: 99212 ==

== ENCOUNTER 2024-07-28 09:45 | Outpatient (AMB) | payer MEDICARE, SELFPAY ==
--- NOTE | 2024-07-28 09:52 | A.OFFPC_ITS ---
Vital Signs 07/28/24 09:53 Height 5 ft 8 in Weight 124.284 kg BMI 41.7 BP 120/70 Blood Pressure Location Rt brachial Position Sitting Pulse 75 Pulse Source Pulse Oximeter Temp 97.2 F Temp Source Axillary Pulse Oximetry (%) 98 Oxygen Delivery Method Room Air Intake Visit Reasons: Routine - see comments Senior Risk Manager Required: No Accompanied by: Friend Allergies acetaminophen [From Tylenol] Allergy (Verified 07/28/24 09:53) Diarrhea Medication List - Last Reconciled 07/28/24 by LAMONT White amlodipine 2.5 mg PO DAILY aspirin 81 mg PO DAILY cholecalciferol (vitamin D3) (Vitamin D3) 125 mcg PO DAILY citalopram 10 mg PO DAILY glipizide ER 5 mg PO BID hydrochlorothiazide 12.5 mg PO DAILY ketorolac 0.5% 1 drp ophthalmic (eye) TID lisinopril 20 mg PO BID metformin 1,000 mg PO BID miconazole nitrate 2% (Miconazole-7) 1 appful vaginal BEDTIME 7 days multivitamin 1 tab PO BID naproxen 500 mg PO BID PRN primidone 50 mg PO BEDTIME simvastatin 10 mg PO BEDTIME Tobacco use date assessed: 07/28/24 Fall risk assessment: 1 Fall in past year Last assessed Fall Risk: 07/28/24 Dental Screening Dental Screen Date: 07/28/24 Did you have a dental visit in the last 12 months?: Yes Did you have a dental problem in the last 6 months where you did not have access to dental care?: No HPI HPI Comments History of Present Illness Details Patient with history of type 2 diabetes, htn, and CONCHITA presents to the office for routine followup. Reports compliance with all medications. Glucose levels at home elevated- fasting glucose this morning 175, nonfasting 148-200. Not compliant with diabetic diet. Has been more ambulatory. She is reporting some NEW but this has been going on for 1.5 years- no worse. No cough, edema, chest pain. She had echo 03/25 without any evidence of heart failure but did show mild . Following with cardiology. She is also reporting low back pain. Has CT abd/pelvis earlier this month showing degenerative changes. No weakness, parthesthias, bowel/bladder dysfunction. She is ambulatory. Using icy hot and alternating heat/cold. Not taking any nsaids or other medications. Has HCP. MOLST completed in office. No mammo. [facility] Medical History Osteoarthritis of right ankle Hx of head injury Arthritis Elevated cholesterol Anxiety CONCHITA on CPAP Diabetes HTN (hypertension) Surgical History Hx of bilateral cataract extraction Hx of colonoscopy (~07/22/21) Family History (Updated 07/28/24 @ 10:07 by Tracey Kam MA) Father Diabetes Heart attack High blood pressure Mother Diabetes Social History Housing: House Alcohol intake: never Patient Tobacco Use Status: Never used Tobacco e-Cigarette/Vaping Use: Never Used service: No Current occupational status: retired Current occupation: rt handed Cognitive needs: Yes (cane) Hearing needs: No Vision needs: Yes (reading glasses) Female Reproductive History Menstrual Age of Menarche: 15 Questionnaire PHQ-9 Over the last 2 weeks, how often have you been bothered by any of the following problems? 1. Little interest or pleasure in doing things: not at all 2. Feeling down, depressed, or hopeless: several days 3. Trouble falling or staying asleep, or sleeping too much: not at all 4. Feeling tired or having little energy: not at all 5. Poor appetite or overeating: not at all 6. Feeling bad about yourself - or that you are a failure or have let yourself or your family down: not at all 7. Trouble concentrating on things, such as reading the newspaper or watching television: not at all 8. Moving or speaking so slowly that other people could have noticed. Or the opposite - being so fidgety or restless that you have been moving around a lot more than usual: not at all 9. Thoughts that you would be better off or of hurting yourself in some way: not at all Total score: 1 Source: Developed by Drs. Omid Blankenship, Tabitha De, Jasper Longoria and colleagues, with an educational brian from [employer]. Thrive Questionnaire Date Thrive assessed: 07/28/24 I am a: Patient Within the past 12 months, did the food you bought not last and you didn't have the money to get more?: Never true Within the past 12 months, did you worry whether your food would run out before you got money to buy more?: Never true Do you have trouble paying for medicines?: No Do you have trouble getting transportation to medical appointments?: No Do you have trouble paying your heating and electricity bill?: No Do you have trouble taking care of your child, family member or friend?: No Do you have trouble with day-to-day activities such as bathing, preparing meals, shopping, managing finances, etc.?: No Are you currently unemployed and looking for a job?: No Are you interested in more education?: No THRIVE Score: 0 AUDIT C Alcohol Use Questionnaire (AUDIT-C) 1. How often do you have a drink containing alcohol?: Never 3. How often do you have six or more drinks on one occasion?: Never Total Score: 0 EARLINE-7 AMB Questionnaire EARLINE-7 Date EARLINE - 7 assessed: 07/28/24 Feeling nervous, anxious, or on edge: 1 = Several days Not being able to stop or control worryin = Not at all Worrying too much about different things: 0 = Not at all Trouble relaxin = Not at all Being so restless that it is hard to sit still: 0 = Not at all Becoming easily annoyed or irritable: 0 = Not at all Feeling afraid as if something awful might happen: 0 = Not at all Total EARLINE-7 score (0-4 normal; 5-9 mild; 10-14 moderate; 15-21 severe): 1 Source: Developed by Drs. Omid Blankenship, Tabitha De, Jasper Longoria and colleagues, with an educational brian from [employer]. Review of Systems Const All systems reviewed & are unremarkable except as noted in HPI and below Physical exam (Primary Care) Tobacco/Smoking Status: Tobacco use Status Tobacco use date assessed 06/11/24 06/11/24 09:23 Patient Tobacco Use Status Never used Tobacco 07/24/24 09:02 Thrive Assessment: Date of Thrive Assessment Date Thrive assessed 06/11/24 06/11/24 09:23 Const Other: Constitutional - Awake and Alert, No apparent distress Eyes - PERRLA, EOMI Cardiovascular - S1S2, RRR, No edema Respiratory - Normal lung expansion, Normal respiratory effort, No respiratory distress, CTA bilaterally Musculoskeletal - Normal inspection, normal ROM Skin - Warm/Dry Neurological - Alert & oriented x3 Psychological - Appropriate affect Coding Level of Care Code Tele New Pt Level 4 (90933) Complex EM visit Add On G2211 Diagnoses HTN (hypertension) I10 Diabetes E11.9 CONCHITA on CPAP G47.33; Z99.89 Chronic low back pain M54.50; G89.29 Dyspnea on exertion R06.09 Assessment & Plan Assessment & Plan (1) HTN (hypertension): Code(s): I10 - Essential (primary) hypertension Category: Medical Plan: Blood pressure reasonably controlled at 120/70. Continue amlodipine 2.5mg daily and lisinopril 20mg BID. Electrolytes normal, renal function baseline. Low sodium diet. (2) Diabetes: Code(s): E11.9 - Type 2 diabetes mellitus without complications Category: Medical Plan: Last hgb A1c 8.0, overdue for updated A1c and urine microalbumin which is ordered. For now continue metformin 1000mg BID and glipizide 5mg BID. Counseled on diabetic diet as well as increased exercise. Medications to be adjusted pending A1c result. (3) CONCHITA on CPAP: Code(s): G47.33 - Obstructive sleep apnea (adult) (pediatric); Z99.89 - Dependence on other enabling machines and devices Category: Medical Plan: Continue CPAP (4) Chronic low back pain: Code(s): M54.50 - Low back pain, unspecified; G89.29 - Other chronic pain Category: Medical Plan: Naproxen 250mg BID. Continue icy hot, heat/cold. Recommend activity and gentle stretches (5) Dyspnea on exertion: Code(s): R06.09 - Other forms of dyspnea Category: Medical Plan: Chronic ongoing x1.5 years. Last echo with mild , no evidence of HF. No chronic lung disease. Recommend increased exercise and deep breathing exercises. Follow up with cardiology in August as scheduled for echo and stress test. Orders: Orders Hemoglobin A1c Today E11.9 - Type 2 diabetes mellitus without complications Microalbumin, Random (w Creat) Today E11.9 - Type 2 diabetes mellitus without complications Lipid Panel Today E11.9 - Type 2 diabetes mellitus without complications, E78.00 - Pure hypercholesterolemia, unspecified Medications: New amlodipine 2.5 mg PO DAILY 90 tabs 1RF hydrochlorothiazide 12.5 mg PO DAILY 90 caps 1RF lisinopril 20 mg PO BID 180 tabs 1RF metformin 1,000 mg (2 x 500 mg) PO BID 180 tabs 1RF multivitamin 1 tab PO BID 90 tabs 1RF primidone 50 mg PO BEDTIME 90 tabs 1RF aspirin 81 mg PO DAILY 90 tabs 1RF cholecalciferol (vitamin D3) (Vitamin D3) 125 mcg PO DAILY 90 tabs 1RF ketorolac 0.5% 1 drp ophthalmic (eye) TID 10 mL 1RF simvastatin 10 mg PO BEDTIME 90 tabs 1RF naproxen 250 mg PO BID PRN 60 tabs 1RF pain Refilled citalopram 10 mg PO DAILY 90 tabs 1RF miconazole nitrate 2% (Miconazole-7) 1 appful vaginal BEDTIME 7 days 45 grams 4RF Discontinued naproxen Discontinued Reason: Doctor's Order 500 mg PO BID PRN 30 tabs 0RF pain
[2024-07-28 09:53] VITALS: BP 120/70; PULSE 75; TEMP 36.2; O2SAT 98; BMI 41.7
--- OUTSIDE RECORDS SUMMARY | 2024-07-28 11:00 | XMS_ITS ---
Author Organization [facility] Address [address] [place] [address] Care Team Providers Care Health Researcher Name Role Phone Roscoe Rahman MD Primary Care Provider Griselda Dillon Unavailable [phone] Encounters Encounter Location Date Provider Diagnosis [address] [address] 01/08/2024 Griselda Bazzi Plan Of Treatment Next Appt Details Provider Name:Agustin Whiteside , 08/26/2024 09:00:00 AM, [address] [place], [address], Progress Notes * Heide ROMERO ADOB:08/1950 (74 yo F)Acc No.[id number]:01/08/2024 Progress Note Patient:?KATINA Heide Ayon Provider:?Griselda Bazzi DPM :1950???Age:73 Y???Sex:Female D ate:01/08/2024 Address:[address] [place] [id number] Pcp:Roscoe Rahman MD Subjective: * Chief Complaints: [...] Bazzi DPM Date:?1 Generated for Jada pierce/Eula/Benji on:?07/28/2024 10:59 AM EDT
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
== END 2024-07-28 10:38 | disposition home or self-care (01) ==
LOC: HO.HMCHD 09:45
PROVIDERS: PCP Internal Medicine; Visit Provider Physician Assistant
DX: I10 Essential (primary) hypertension (principal); E11.9 Type 2 diabetes mellitus without complications; G47.33 Obstructive sleep apnea (adult) (pediatric); Z99.89 Dependence on other enabling machines and devices; M54.50 Low back pain, unspecified; G89.29 Other chronic pain; R06.09 Other forms of dyspnea

== ENCOUNTER → 2024-07-28 09:45 | Outpatient (BNVA) | payer MEDICARE, SELFPAY | PROVIDERS: PCP Internal Medicine; Visit Provider Physician Assistant | DX: Z13.89 Encounter for screening for other disorder (principal) | CPT/HCPCS: 99202 ==

== ENCOUNTER 2024-07-28 10:43 | Outpatient (REF) | payer MEDICARE, SELFPAY ==
[2024-07-28 13:38] LABS: Estimated Average Glucose 189 mg/dL; Hemoglobin A1C 211.0363 umol/L; Hemoglobin A1c % 8.2 % (<6.0); Total Hemoglobin (HGBA1C) 3213.3005 umol/L
[2024-07-28 14:01] LABS: Cholesterol 173 mg/dL (<200); HDL Cholesterol 66 mg/dL (>40); LDL Cholesterol Calculated 76 mg/dL (<100); Triglycerides 158 mg/dL (<150)
[2024-07-28 14:13] LABS: Creatinine Urine 44.76 mg/dL; Microalbum/Creatinine Ratio Ur 26.8 ug/mg cr (<30)
== END 2024-07-28 10:44 | disposition home or self-care (01) ==
LOC: HO.10HDL 10:43
PROVIDERS: Visit Provider Physician Assistant
DX: I10 Essential (primary) hypertension (principal); E11.9 Type 2 diabetes mellitus without complications; G47.33 Obstructive sleep apnea (adult) (pediatric); G89.29 Other chronic pain; M54.50 Low back pain, unspecified; R06.09 Other forms of dyspnea; E78.00 Pure hypercholesterolemia, unspecified; Z79.84 Long term (current) use of oral hypoglycemic drugs; Z79.899 Other long term (current) drug therapy; Z99.89 Dependence on other enabling machines and devices
CPT/HCPCS: 36415; 80061; 82043; 82570; 83036; 96127; 99202

== ENCOUNTER 2024-09-02 13:35 | Outpatient (AMB) | payer MEDICARE, SELFPAY ==
--- NOTE | 2024-09-02 13:37 | MHC.PC.OV ---
Vital Signs 09/02/24 13:43 Height 5 ft 8 in Weight 78.925 kg BMI 26.5 BP 166/58 H Respiration 16 Pulse 80 Pulse Source Pulse Oximeter Temp 97.4 F Temp Source Temporal Artery Scan Pulse Oximetry (%) 98 Oxygen Delivery Method Room Air Intake Visit Reasons: headaches Playground Director Required: No Accompanied by: Self / Same As Patient Allergies acetaminophen [From Tylenol] Allergy (Verified 09/02/24 13:37) Diarrhea Medication List - Last Reconciled 09/02/24 by LAMONT White amlodipine 5 mg PO DAILY aspirin 81 mg PO DAILY cholecalciferol (vitamin D3) (Vitamin D3) 125 mcg PO DAILY citalopram 20 mg PO DAILY glipizide ER 5 mg PO BID hydrochlorothiazide 12.5 mg PO DAILY lisinopril 20 mg PO BID lorazepam mg PO metformin 1,000 mg (2 x 500 mg) PO BID miconazole nitrate 2% (Miconazole-7) 1 appful vaginal BEDTIME 7 days multivitamin 1 tab PO BID naproxen 250 mg PO BID PRN primidone 50 mg PO BEDTIME simvastatin 10 mg PO BEDTIME Tobacco use date assessed: 07/28/24 Dental Screening Dental Screen Date: 07/28/24 HPI HPI Comments History of Present Illness Details 74-year-old female presents to the office accompanied by her friend with several complaints. She reports she has been seeing Neurology for essential tremors which have not been well maintained with primidone. She states they are constant and very bothersome but was told that there was not much else to do. She also states that she has constant headaches on the right side of her head that are described as sharp. No blurred vision, photophobia, photophobia, nausea, vomiting. She does report occasionally hearing a cricket like sound while lying in bed but denies any true auditory hallucinations. She has also been incredibly anxious and tearful lately. Since , has had 3-of family and close friends. Per her friend, the patient is sad very often and will often, over to talk about it. She does not have a formal therapist. No SI/HI. She is taking citalopram 10 mg daily which is somewhat helpful and lorazepam only as needed. ROS: General: No fevers, malaise, unintentional weight loss HEENT: No blurred vision, diplopia. No sore throat, nasal congestion, rhinorrhea, sinus pain, ear pain Cardiovascular: No chest pain, palpitations, or leg edema Respiratory: No shortness of breath, wheezing, cough GI: No abdominal pain, nausea, vomiting, diarrhea, constipation, melena, hematochezia : No dysuria, hematuria, increased urinary frequency, decreased urinary output MSK: No myalgia, back pain Neuro: See HPI Skin: No rashes or lesions EXAM: Constitutional - Awake and Alert, No apparent distress Cardiovascular - S1S2, RRR, No edema Respiratory - Normal lung expansion, Normal respiratory effort, No respiratory distress, CTA bilaterally Extremities - no calf tenderness bilaterally, no swelling Skin - Warm/Dry Neurological - Alert & oriented x3, CN II-XII in tact, tremulous Psychological - depressed mood, tearful PFSH Medical History (Updated 09/02/24 @ 14:05 by LAMONT White) Osteoarthritis of right ankle Hx of head injury Arthritis Elevated cholesterol Anxiety CONCHITA on CPAP Diabetes HTN (hypertension) Surgical History Hx of bilateral cataract extraction Hx of colonoscopy (~07/22/21) Family History (Updated 07/28/24 @ 10:07 by Tracey Kam MA) Father Diabetes Heart attack High blood pressure Mother Diabetes Social History Housing: House Alcohol intake: never Patient Tobacco Use Status: Never used Tobacco e-Cigarette/Vaping Use: Never Used service: No Current occupational status: retired Current occupation: rt handed Cognitive needs: Yes (cane) Hearing needs: No Vision needs: Yes (reading glasses) Female Reproductive History Menstrual Age of Menarche: 15 Questionnaire Thrive Questionnaire Date Thrive assessed: 07/28/24 EARLINE-7 AMB Questionnaire EARLINE-7 Date EARLINE - 7 assessed: 07/28/24 Source: Developed by Drs. Omid Blankenship, Tabitha De, Jasper Longoria and colleagues, with an educational brian from [employer]. Physical exam (Primary Care) Vital Signs: Last Vital Signs Temp 97.4 F 09/02/24 13:43 Pulse 80 09/02/24 13:43 Resp 16 09/02/24 13:43 BP 166/58 H 09/02/24 13:43 Pulse Ox 98 09/02/24 13:43 Oxygen Delivery Method Room Air 09/02/24 13:43 BMI result Body Mass Index 26.5 Tobacco/Smoking Status: Tobacco use Status Tobacco use date assessed 07/28/24 09/02/24 13:39 Patient Tobacco Use Status Never used Tobacco 09/02/24 13:39 e-Cigarette/Vaping Use Never Used 09/02/24 13:39 Thrive Assessment: Date of Thrive Assessment Date Thrive assessed 07/28/24 09/02/24 13:39 Coding Level of Care Code Est Pt Level 4 (02139) Complex EM visit Add On G2211 Diagnoses Emotional lability R45.86 Chronic daily headache R51.9 Uncontrolled hypertension I10 Essential tremor G25.0 Assessment & Plan Assessment & Plan (1) Emotional lability: Code(s): R45.86 - Emotional lability Category: Medical Plan: Suspect this is related to a grief reaction. Given significant anxiety, will increase citalopram to 20 mg daily. She can continue using lorazepam as needed. I have recommended the patient seek out a grief counselor or clergyman. She will continue with close supports including her friend Dnona who is present at the visit. Recommend participation in activities to help keep her mind off of her friends and family as well as anxiety. (2) Chronic daily headache: Code(s): R51.9 - Headache, unspecified Category: Medical Plan: Atypical in nature. Has been ongoing since prior to the increased anxiety. MRI of the brain is ordered given chronicity. Recommend naproxen or Tylenol. (3) Uncontrolled hypertension: Code(s): I10 - Essential (primary) hypertension Category: Medical Plan: Amlodipine 5 mg ordered. Continue using lisinopril 20 mg twice daily. Follow low-sodium diet. Follow-up in the office for repeat blood pressure check. Continue checking pressures at home with goal less than 140/90 (4) Essential tremor: Code(s): G25.0 - Essential tremor Category: Medical Plan: Ongoing but stable. Continue primidone Plan Follow up in 1 month for bp check and to f/up on anxiety Orders: Orders MR head/brain wo con 09/02/24 G25.0 - Essential tremor, I10 - Essential (primary) hypertension, R45.86 - Emotional lability, R51.9 - Headache, unspecified Medications: New citalopram 20 mg PO DAILY 90 tabs 1RF amlodipine 5 mg PO DAILY 90 tabs 1RF Discontinued amlodipine Discontinued Reason: Doctor's Order 2.5 mg PO DAILY 90 tabs 1RF citalopram Discontinued Reason: Doctor's Order 10 mg PO DAILY 90 tabs 1RF
[2024-09-02 13:43] VITALS: BP 166/58; PULSE 80; RESP 16; TEMP 36.3; O2SAT 98; BMI 26.5
== END 2024-09-02 14:17 | disposition home or self-care (01) ==
LOC: HO.HMCHD 13:36
PROVIDERS: PCP Internal Medicine; Visit Provider Physician Assistant
DX: R45.86 Emotional lability (principal); R51.9 Headache, unspecified; I10 Essential (primary) hypertension; G25.0 Essential tremor

== ENCOUNTER → 2024-09-02 13:35 | Outpatient (BNVA) | payer MEDICARE, SELFPAY | PROVIDERS: PCP Internal Medicine; Visit Provider Physician Assistant | DX: R51.9 Headache, unspecified (principal); R45.86 Emotional lability; I10 Essential (primary) hypertension; G25.0 Essential tremor | CPT/HCPCS: 99212 ==

== ENCOUNTER → 2024-09-03 10:38 | Outpatient (REF) | payer MEDICARE, SELFPAY ==
--- NOTE | 2024-09-03 10:42 | CA_ITS ---
Acquisition Time: 2024-09-03 11:00:05 Total Exercise Time: 00:05:01 Test Indications: HTN, SOB Medications: Protocol: ÁNGEL Max HR: 160 BPM 108% of Pred: 147 BPM Max BP: 184/56 mmHG Max Work Load: 4.6 METS Exercise stress test with exercise 5 mins 1 sec of Ángel Protocol, achieving 98% MPHR, with reports of sevre SOB, no chest pain, without any arrythmias, with normotensive response to exercise. Without EKG changes meeting criteria for ischemia. In recovery, breathing returned to baseline. Echo images obatined by tech at rest and post peak exercise. Definity contrast utilized. Test reviewed with Dr. Tillman. Referred By: Edgardo Tillman Electronically Signed By: Jorge Vera
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
== END ==
LOC: HO.CARD 10:38
PROVIDERS: PCP Internal Medicine; Visit Provider Internal Medicine
DX: R00.2 Palpitations (principal); R06.09 Other forms of dyspnea
CPT/HCPCS: 93242; 93350; Q9957

== ENCOUNTER → 2024-09-03 10:42 | Outpatient (BNV) | payer MEDICARE, SELFPAY | PROVIDERS: PCP Internal Medicine | DX: R06.02 Shortness of breath (principal); I10 Essential (primary) hypertension | CPT/HCPCS: 93016; 93018; 93350; 93352 ==

== ENCOUNTER 2024-09-08 20:43 | Emergency (ER) | payer MEDICARE, SELFPAY ==
--- NOTE | ~2024-09-08 | CT_ITS ---
CLINICAL HISTORY: diziness CT head without contrast Comparison: None Findings: No intra-axial mass, midline shift, hydrocephalus, or acute hemorrhage. Mild atrophy-like change or white matter disease. The visualized paranasal sinuses and mastoid air cells are normal. The orbits are unremarkable. No skull fracture. IMPRESSION: 1. No acute intracranial findings. This document has been electronically signed by: Stacey Nelson MD on 09/08/2024 22:41:33
[2024-09-08 20:50] VITALS: BP 165/52; BP 177/87; PULSE 77; PULSE 86; RESP 16; TEMP 36.2; O2SAT 100; O2SAT 95; BMI 40.5
--- NOTE | 2024-09-08 20:59 | ECG_ITS ---
Test Reason : DIZZINESS Blood Pressure : */* mmHG Vent. Rate : 72 BPM Atrial Rate : 72 BPM P-R Int : 130 ms QRS Dur : 92 ms QT Int : 406 ms P-R-T Axes : 8 15 32 degrees QTcB Int : 444 ms Normal sinus rhythm Normal ECG When compared with ECG of 02-Dec-2011 21:39, No significant changes seen Referred By: Cory Urias Electronically Signed By: MICHAEL OSULLIVAN MD
[2024-09-08 21:39] VITALS: BP 179/64; BP 187/70; PULSE 75; PULSE 78
[2024-09-08 21:42] VITALS: BP 186/75; PULSE 79
[2024-09-08 21:54] LABS: MANUAL DIFF FLAG NO
[2024-09-08 21:55] LABS: Basophils Absolute Auto 0.1 X10*3/uL (0.0-0.2); Basophils Percent Auto 0.6 % (0-2); Eosinophils Absolute Auto 0.3 X10*3/uL (0.0-0.4); Eosinophils Percent Auto 1.8 % (0-4); Hematocrit 36.1 % (37.0-47.0); Imm Gran Abs Auto 0.06 X10*3/uL (0.00-0.03); Imm Gran Pct Auto 0.4 % (0.0-0.4); Lymphocytes Absolute Auto 1.7 X10*3/uL (1.2-4.9); Lymphocytes Percent Auto 12.6 % (20-40); Mean Corpuscular HGB Conc 33.2 g/dl (31.0-35.0); Mean Corpuscular Hemoglobin 27.5 pg (27.0-33.0); Mean Corpuscular Volume 82.6 fL (80.0-98.0); Mean Platelet Volume 9.3 fL (9.4-12.3); Monocytes Absolute Auto 0.8 X10*3/uL (0.1-1.2); Monocytes Percent Auto 6.1 % (2-11); Neutrophils Absolute Auto 10.7 x10*3/uL (2.0-8.3); Neutrophils Percent Auto 78.5 % (45-73); Platelet Count 304 X10*3/uL (160-400); Red Blood Count 4.37 X10*6/uL (4.20-5.50); White Blood Count 13.7 X10*3/uL (4.8-10.8)
[2024-09-08 22:15] LABS: Alanine Aminotransferase 20 U/L (0-31); Albumin Level 4.1 g/dL (3.5-5.0); Alkaline Phosphatase 53 U/L (39-117); Anion Gap 17 (12-20); Aspartate Amino Transferase 20 U/L (5-31); Bilirubin Total 0.1 mg/dL (0.0-1.0); Blood Urea Nitrogen 30 mg/dL (9-16); Calcium 9.3 mg/dL (8.4-10.2); Carbon Dioxide 24 mmol/L (22-29); Chloride 104 mmol/L (96-108); Creatinine Clr Calc Pharmacy 63.7; Estimated Glomerular Filt Rate 48; Glucose Random 157 mg/dL (60-115); Potassium 4.5 mmol/L (3.3-5.1); Sodium 140 mmol/L (135-145)
--- NOTE | 2024-09-08 22:20 | ED.DIZZY ---
HPI - Dizziness General Chief Complaint: Dizziness Stated Complaint: dizzyness Time Seen by Provider: 09/08/24 20:54 Source: patient Mode of arrival: ambulatory Limitations: no limitations History of Present Illness ED Provider: HPI Narrative: Patient's history of diabetes hypertension sleep apnea been feeling vertiginous feeling since a.m. with right ear fullness for last few days with history of same in the past unsteady on her feet patient's plan to have MRI of the brain for the same Related Data Home Medications ?Medication ?Instructions ?Recorded ?Confirmed lorazepam 0.5 mg tablet mg PO 09/02/24 09/02/24 Previous Rx's ?Medication ?Instructions ?Recorded aspirin 81 mg chewable tablet 81 mg PO DAILY #90 tabs 07/28/24 cholecalciferol (vitamin D3) 125 125 mcg PO DAILY #90 tabs 07/28/24 mcg (5,000 unit) tablet (Vitamin D3) hydrochlorothiazide 12.5 mg capsule 12.5 mg PO DAILY #90 caps 07/28/24 lisinopril 20 mg tablet 20 mg PO BID #180 tabs 07/28/24 metformin 500 mg tablet 1,000 mg (2 x 500 mg) PO BID #180 07/28/24 tabs miconazole nitrate 2 % vaginal 1 appful vaginal BEDTIME 7 days 07/28/24 cream (Miconazole-7) #45 grams multivitamin 1 tab PO BID #90 tabs 07/28/24 naproxen 250 mg tablet 250 mg PO BID PRN pain #60 tabs 07/28/24 primidone 50 mg tablet 50 mg PO BEDTIME #90 tabs 07/28/24 simvastatin 10 mg tablet 10 mg PO BEDTIME #90 tabs 07/28/24 glipizide 5 mg tablet, extended 5 mg PO BID #90 tabs 08/11/24 release 24 hr amlodipine 5 mg tablet 5 mg PO DAILY #90 tabs 09/02/24 citalopram 20 mg tablet 20 mg PO DAILY #90 tabs 09/02/24 cefuroxime axetil 500 mg tablet 500 mg PO BID 7 days #14 tabs 09/09/24 meclizine 25 mg tablet 25 mg PO TID PRN dizziness #20 tabs 09/09/24 Allergies Allergy/AdvReac Type Severity Reaction Status Date / Time acetaminophen [From Tylenol] Allergy Mild Diarrhea Verified 09/08/24 20:53 Review of Systems Review of Systems: Yes all other systems are reviewed and are negative [facility] Past Medical History Medical History Osteoarthritis of right ankle Hx of head injury Arthritis Elevated cholesterol Anxiety CONCHITA on CPAP Diabetes HTN (hypertension) Surgical History Hx of bilateral cataract extraction Hx of colonoscopy (~07/22/21) Family History Family History Father Diabetes Heart attack High blood pressure Mother Diabetes Social History Social History Housing: House Alcohol intake: never Patient Tobacco Use Status: Never used Tobacco e-Cigarette/Vaping Use: Never Used Advance Directives: No Advance Directives Information Provided: Yes service: No Current occupational status: retired Current occupation: rt handed Cognitive needs: Yes (cane) Hearing needs: No Vision needs: Yes (reading glasses) Physical Exam Vital Signs: Vital Signs: Last Vital Signs Temp 97.1 F 09/08/24 20:50 Pulse 77 09/08/24 23:55 Resp 18 09/08/24 23:55 BP 150/56 H 09/08/24 23:55 Pulse Ox 97 09/08/24 23:55 O2 Del Method Room Air 09/08/24 23:55 BMI result Body Mass Index 40.5 Appearance: Alert. Oriented X3. No acute distress. Eyes: PERRLA, No Nystagmus ENT: Pharynx normal. Oral Mucosa moist Neck: Normal inspection. Neck supple. CVS: Normal heart rate and rhythm. Pulses normal. Respiratory: No respiratory distress. Equal air entry bilateral, no wheezing/rales/rhonchi Abdomen: Soft and nontender. Bowel sounds are present, no mass palpable, no CVA tenderness Skin: Skin warm and dry. Normal skin color. Normal skin turgor. Extremities: No lower extremity edema. No calf tenderness Neuro: Oriented X 3. No motor deficit. No sensory deficit.No cerebellar signs , cranial nerves II-XII intact Medications Administered Discontinued Medications Generic Name Dose Route Start Last Admin Trade Name Freq PRN Reason Stop Dose Admin Meclizine HCl 50 mg 09/09/24 00:49 09/09/24 00:51 Meclizine Hcl 25 Mg Tablet PO 09/09/24 00:50 50 mg ONCE ONE Administration Medical Decision Making Medical Decision Making [facility] Narrative: Patient with vertiginous feeling workup is negative essentially steps patient has a UTI will give meclizine and Ceftin Differential Diagnosis Differential Diagnoses: The differential diagnosis associated with the presentation includes Lab Data [facility] Lab Attestation statement: I reviewed the patient's lab results. 09/08/24 21:49 09/08/24 21:49 Labs: Lab Results 09/08/24 09/09/24 Range/Units 21:49 01:28 WBC 13.7 H (4.8-10.8) X10*3/uL RBC 4.37 (4.20-5.50) X10*6/uL Hgb 12.0 (12.0-16.0) g/dl Hct 36.1 L (37.0-47.0) % MCV 82.6 (80.0-98.0) fL MCH 27.5 (27.0-33.0) pg MCHC 33.2 (31.0-35.0) g/dl RDW 14.0 (11.0-16.0) % Plt Count 304 (160-400) X10*3/uL MPV 9.3 L (9.4-12.3) fL Immature Gran % (Auto) 0.4 (0.0-0.4) % Neut % (Auto) 78.5 H (45-73) % Lymph % (Auto) 12.6 L (20-40) % [place] % (Auto) 6.1 (2-11) % Eos % (Auto) 1.8 (0-4) % Baso % (Auto) 0.6 (0-2) % Lymph # (Auto) 1.7 (1.2-4.9) X10*3/uL [place] # (Auto) 0.8 (0.1-1.2) X10*3/uL Eos # (Auto) 0.3 (0.0-0.4) X10*3/uL Baso # (Auto) 0.1 (0.0-0.2) X10*3/uL Abs Immat Gran (auto) 0.06 H (0.00-0.03) X10*3/uL Absolute Neuts (auto) 10.7 H (2.0-8.3) x10*3/uL Absolute Nucleated RBC 0.000 (0.0-0.012) X10*3/uL Nucleated RBC % (auto) 0.0 (0.0-0.2) /100WBC Sodium 140 (135-145) mmol/L Potassium 4.5 (3.3-5.1) mmol/L Chloride 104 (96-108) mmol/L Carbon Dioxide 24 (22-29) mmol/L Anion Gap 17 (12-20) BUN 30 H (9-16) mg/dL Creatinine 1.11 (0.5-1.4) mg/dL Estim Creat Clear Calc 63.7 Estimated GFR 48 Random Glucose 157 H (60-115) mg/dL Calcium 9.3 (8.4-10.2) mg/dL Total Bilirubin 0.1 (0.0-1.0) mg/dL AST 20 (5-31) U/L ALT 20 (0-31) U/L Alkaline Phosphatase 53 (39-117) U/L Troponin I High Sens 4.2 (<3.5-17.0) ng/L Total Protein 7.0 (6.5-8.0) g/dL Albumin 4.1 (3.5-5.0) g/dL Urine Color Yellow Urine Appearance Cloudy Urine pH 5.5 (5.0-9.0) Ur Specific [place] 1.020 (1.005-1.025) Urine Protein Trace (Neg-Trace) mg/dL Urine Glucose (UA) 500 H (Negative) mg/dL Urine Ketones Trace (Negative) mg/dL Urine Blood Negative (Negative) Urine Nitrite Negative (Negative) Ur Leukocyte Esterase Large (3+) H (Negative) Urine RBC 0-2 (0-2) /HPF Urine WBC 11-20 H (0-5) /HPF Ur Squamous Epith Cells 6-10 (0-2) /HPF Urine Bacteria 4+ (None Seen) Hyaline Casts 0-2 (0-2) /LPF Independent Interpretation I performed an independent interpretation of an: CT Scan Radiology Impression Discussion of test interpretation with radiology: I have reviewed the radiologist's reading. Radiologist Impression: No acute Discharge Plan Discharge Clinical Impression: Benign paroxysmal positional vertigo, Acute UTI Patient Disposition: Home, Self-Care Instructions: Urinary Tract Infection in Women (ED), Benign Paroxysmal Positional Vertigo (ED) Additional Instructions: Drink plenty of fluids Medication for dizziness as prescribed every 8 hours as needed You possible you have urinary tract infection also Take antibiotic as prescribed Prescriptions: New meclizine 25 mg tablet 25 mg PO TID PRN (Reason: dizziness) Qty: 20 0RF cefuroxime axetil 500 mg tablet 500 mg PO BID 7 Days Qty: 14 0RF No Action glipizide 5 mg tablet extended release 24hr 5 mg PO BID Qty: 90 0RF aspirin 81 mg tablet,chewable 81 mg PO DAILY Qty: 90 1RF cholecalciferol (vitamin D3) [Vitamin D3] 125 mcg (5,000 unit) tablet 125 mcg PO DAILY Qty: 90 1RF hydrochlorothiazide 12.5 mg capsule 12.5 mg PO DAILY Qty: 90 1RF lisinopril 20 mg tablet 20 mg PO BID Qty: 180 1RF metformin 500 mg tablet 1,000 mg PO BID Qty: 180 1RF miconazole nitrate [Miconazole-7] 2 % cream 1 appful vaginal BEDTIME 7 Days Qty: 45 4RF multivitamin Tablet 1 tab PO BID Qty: 90 1RF simvastatin 10 mg tablet 10 mg PO BEDTIME Qty: 90 1RF primidone 50 mg tablet 50 mg PO BEDTIME Qty: 90 1RF naproxen 250 mg tablet 250 mg PO BID PRN (Reason: pain) Qty: 60 1RF lorazepam 0.5 mg tablet PO amlodipine 5 mg tablet 5 mg PO DAILY Qty: 90 1RF citalopram 20 mg tablet 20 mg PO DAILY Qty: 90 1RF Print Language: Romanian
[2024-09-08 22:32] LABS: Troponin-I High Sensitivity 4.2 ng/L (<3.5-17.0)
[2024-09-08 23:55] VITALS: BP 150/56; PULSE 77; RESP 18; O2SAT 97
[2024-09-09] MEDS: Meclizine HCl 25 MG TABLET 50 MG PO (00:51)
[2024-09-09 01:35] LABS: Appearance Urine Cloudy; Color Urine Yellow; Glucose Urine UA 500 mg/dL (Negative); Leukocyte Esterase Urine Large (3+) (Negative); Nitrite Urine Negative (Negative); PH 5.5 (5.0-9.0); UMIC TRIGGER UACC YES; Urine Blood Negative (Negative); Urine Ketones Trace mg/dL (Negative); Urine Protein Trace mg/dL (Neg-Trace)
[2024-09-09 01:42] LABS: Bacteria Urine 4+ (None Seen); Hyaline Casts Urine 0-2 /LPF (0-2); RBC Urine 0-2 /HPF (0-2); UACC Culture Trigger YES
[2024-09-09] MEDS: cefuroxime axetiL 500 MG TABLET PO (02:06)
[2024-09-09 02:17] VITALS: BP 150/56; PULSE 77; RESP 18; TEMP 36.2; O2SAT 97
== END 2024-09-09 02:18 | disposition home or self-care (01) ==
PROVIDERS: Emergency Provider Internal Medicine
DX: H81.13 Benign paroxysmal vertigo, bilateral (principal); N39.0 Urinary tract infection, site not specified; Z79.899 Other long term (current) drug therapy
CPT/HCPCS: 36415; 70450; 80053; 81001; 84484; 85025; 87086; 93005; 99284; 99285

== ENCOUNTER → 2024-09-08 20:59 | Outpatient (BNV) | payer MEDICARE, SELFPAY | PROVIDERS: Emergency Provider Internal Medicine; Visit Provider Internal Medicine Cardiovascular Disease | DX: R42 Dizziness and giddiness (principal) | CPT/HCPCS: 93010 ==

== ENCOUNTER → 2024-09-08 21:28 | Outpatient (BNV) | payer MEDICARE, SELFPAY | PROVIDERS: Emergency Provider Internal Medicine; Visit Provider Student in an Organized Health Care Education/Training Program | DX: R42 Dizziness and giddiness (principal) | CPT/HCPCS: 70450 ==

== ENCOUNTER → 2024-09-15 17:40 | Outpatient (BNV) | payer MEDICARE, SELFPAY | PROVIDERS: PCP Internal Medicine; Visit Provider Radiology Diagnostic Radiology | DX: H74.8X1 Other specified disorders of right middle ear and mastoid (principal); R90.82 White matter disease, unspecified | CPT/HCPCS: 70551 ==

== ENCOUNTER 2024-09-15 17:42 | Outpatient (REF) | payer MEDICARE, SELFPAY ==
--- NOTE | ~2024-09-15 | MR_ITS ---
CLINICAL HISTORY: R45.86 - Emotional lability MR BRAIN WITHOUT GADOLINIUM Comparison: CT/SR - CT HEAD/BRAIN WO IV CON - 09/08/24 21:51 EDT Findings: No restricted diffusion. No intra-axial mass or hemorrhage. There is a 1 cm well-circumscribed cystic lesion in the left temporal lobe for which the possibility of a perivascular cyst is raised and is of doubtful clinical significance. No midline shift. No hydrocephalus. Vascular flow voids are intact. Visualized orbits: Bilateral aphakia. No sinus fluid. There is opacification of multiple right mastoid air cells. No focal bone lesion. IMPRESSION: 1. No acute infarct, hemorrhage or mass lesion. 2. Nonspecific partial right mastoid opacification. 3. Small burden of periventricular and subcortical white matter signal alteration. This is a nonspecific finding that can be seen in the setting of age advanced microangiopathy, remote trauma, prior infectious/inflammatory process (such as demyelination) or can be seen with increased frequency in patients with a history of migraine headaches. This document has been electronically signed by: Ml Stevenson DO on 09/15/2024 20:10:19
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
== END 2024-09-15 17:43 | disposition home or self-care (01) ==
LOC: HO.MRI 17:42
PROVIDERS: PCP Internal Medicine; Visit Provider Physician Assistant
DX: R45.86 Emotional lability (principal); R51.9 Headache, unspecified; G25.0 Essential tremor; I10 Essential (primary) hypertension
CPT/HCPCS: 70551

== ENCOUNTER 2024-09-17 10:07 | Outpatient (AMB) | payer MEDICARE, SELFPAY ==
--- NOTE | 2024-09-17 10:13 | MHC.OFFVIS ---
Vital Signs 09/17/24 10:16 Height 5 ft 8 in Weight 274 lb 11.135 oz BMI 41.8 BP 130/62 Blood Pressure Location Lt brachial Pulse 71 Pulse Source Pulse Oximeter Intake Visit Reasons: 2 month f/up stress echo Therapeutic Support Staff Required: No Accompanied by: Self / Same As Patient Allergies acetaminophen (From Tylenol) Allergy (Mild, Verified 09/08/24 20:53) Diarrhea Medication List - Last Reconciled 09/17/24 by Edgardo Tillman MD amlodipine 5 mg PO DAILY aspirin 81 mg PO DAILY cholecalciferol (vitamin D3) (Vitamin D3) 125 mcg PO DAILY citalopram 20 mg PO DAILY glipizide ER 5 mg PO BID hydrochlorothiazide 12.5 mg PO DAILY lisinopril 20 mg PO BID lorazepam mg PO metformin 1,000 mg (2 x 500 mg) PO BID miconazole nitrate 2% (Miconazole-7) 1 appful vaginal BEDTIME 7 days multivitamin 1 tab PO BID naproxen 250 mg PO BID PRN simvastatin 10 mg PO BEDTIME HPI Comments Details: Heide returns for follow-up. Recently seen in consultation regarding palpitations and exertional dyspnea. Random palpitations without any specific triggers. Shortness of breath with even short duration activities. This exertional limitation became marked following a back injury in the late summer of last year, after which her functional status gradually decreased. She denies episodes of syncope, chest pain, or dizziness. The patient has a history of essential hypertension, diabetes mellitus, obstructive sleep apnea, arthritis. She also apparently developed essential tremors recently and there is some correlation between the onset of shortness of breath and the tremors. Not clear however if they are truly related or not. Since last seen, she has completed a stress test and Holter monitor. [facility] Medical History Osteoarthritis of right ankle Hx of head injury Arthritis Elevated cholesterol Anxiety COCNHITA on CPAP Diabetes HTN (hypertension) Surgical History Hx of bilateral cataract extraction Hx of colonoscopy (~07/22/21) Family History Father Diabetes Heart attack High blood pressure Mother Diabetes Social History (Reviewed 09/17/24 @ 10:18 by Xiomara Gifford [facility]) Housing: House Alcohol intake: never Patient Tobacco Use Status: Never used Tobacco e-Cigarette/Vaping Use: Never Used service: No Current occupational status: retired Current occupation: rt handed Cognitive needs: Yes (cane) Hearing needs: No Vision needs: Yes (reading glasses) Female Reproductive History Menstrual Age of Menarche: 15 Review of Systems Const Denies chills, Denies fatigue, Denies fever(s), Denies frequent falls, Denies weakness, Denies weight gain and Denies weight loss ENT Denies dizziness Card Denies chest pain, Denies leg edema, Denies lightheadedness, Denies palpitations, Denies dyspnea and Denies dyspnea on exertion Resp Denies cough, Denies dyspnea and Denies dyspnea on exertion GI Denies hematochezia Musc Denies abnormal gait, Denies muscle weakness, Denies numbness, Denies radiating pain into limb and Denies tingling Neuro Denies abnormal gait, Denies dizziness, Denies frequent falls, Denies numbness, Denies tingling and Denies weakness Endo Denies fatigue and Denies palpitations Physical Exam Vital Signs: Last Vital Signs Pulse 71 09/17/24 10:16 BP 130/62 09/17/24 10:16 BMI result Body Mass Index 41.8 Const General: comfortable and no acute distress Orientation/consciousness: patient oriented x3 HEENT Other: Unremarkable Head: Yes normal to inspection Neck Neck: Yes normal visual inspection Chest Chest palpation & inspection: normal inspection of the chest Resp Auscultation: clear to auscultation bilaterally Cardio Palpation: normal PMI Heart sounds: S1 normal heart sound present, S2 normal heart sound present, no gallops, no murmurs and no rubs GI Palpation (GI): Soft to palpation Back/Spine/Pelvis Other: unremarkable Skin General skin exam: no rashes or lesions noted Neuro General: patient oriented x3 Extrem General: Yes normal to inspection Psych Mental Status: mental status grossly normal Assessment & Plan Assessment & Plan (1) Dyspnea on exertion: Code(s): R06.09 - Other forms of dyspnea Category: Medical Plan: In the echocardiogram, LVEF 60-65%. Moderate left ventricle hypertrophy. Normal diastolic function. Mild aortic stenosis. In the stress test, she was able to exercise for 4.6 METS on Mango protocol and reached target heart rate. Severe shortness of breath but no chest pain. No EKG evidence of ischemia. Echocardiographic component was unremarkable. There was no evidence of exercise-induced diastolic dysfunction or pulmonary hypertension. Overall, shortness of breath could be just from deconditioning and hypertension/comorbidities may play a role. We will hold off any further workup at this time. (2) Heart palpitations: Category: Medical Plan: Could be supraventricular ectopy or ventricular ectopy. Less likely atrial fibrillation but certainly possible. Awaiting Holter. (3) HTN (hypertension): Code(s): I10 - Essential (primary) hypertension Category: Medical Plan: She has got some high readings off and on but within acceptable range today. Plan Discussion Notes We discussed the ongoing evaluation of potential cardiac arrhythmias pending monitor and storage bin tender results. I explained that her normal stress test findings indicate adequate cardiac function without evident arterial blockages. We reviewed the chronic management of her hypertension, diabetes, and obesity, underlining their influence on her cardiovascular health. We agreed to maintain blood pressure surveillance and consider dietary adjustments for weight control. Monitoring her essential tremor will continue without further intervention. We established a six-month return plan to reassess her cardiovascular status and overall well-being. Patient was informed and verbally consented to the use of an ambient scribe for clinic note documentation during this visit. Patient Instructions: - Wait for call regarding monitor and storage bin tender results. - Monitor your blood pressure regularly. - Maintain current diabetes management. - Follow a heart-healthy diet; consider consulting a dietitian. - Follow up in six months unless new symptoms arise. - Seek urgent care if experiencing significant dizziness, chest pain, palpitations, or shortness of breath. - Continue current medications as prescribed. Coding Level of Care Code Est Pt Level 4 (47765) Complex EM visit Add On G2211 Diagnoses Dyspnea on exertion R06.09 Heart palpitations HTN (hypertension) I10
[2024-09-17 10:16] VITALS: BP 130/62; PULSE 71; BMI 41.8
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
== END 2024-09-17 10:33 | disposition home or self-care (01) ==
LOC: HO.HCS 10:08
PROVIDERS: PCP Internal Medicine; Visit Provider Internal Medicine
DX: R06.09 Other forms of dyspnea (principal); I10 Essential (primary) hypertension
CPT/HCPCS: 99214; G2211

== ENCOUNTER → 2024-09-17 10:07 | Outpatient (BNVA) | payer MEDICARE, SELFPAY | PROVIDERS: PCP Internal Medicine; Visit Provider Internal Medicine | DX: I10 Essential (primary) hypertension (principal); R06.09 Other forms of dyspnea | CPT/HCPCS: 99212 ==

== ENCOUNTER 2024-10-17 16:10 | Outpatient (REF) | payer MEDICARE, SELFPAY ==
--- OUTSIDE RECORDS SUMMARY | 2024-10-17 16:12 | XMS_ITS | Patient Health Record ---
Author Organization [facility] Address [address] [place] [address] Care Team Providers Care Flag Maker Name Role Phone JANET CORONADO Primary Care Provider Omid Rogers Unavailable [phone] Allergies No Known Allergies Reason For Referral [...] Problem Status W/U Status Risk Notes Problem 121650187 Encounter for screening for malignant neoplasm of colon (Z12.11) Active confirmed Problem 515916856 History of adenomatous polyp of colon (Z86.010) Active confirmed Problem 139056150013076 Preprocedural examination (Z01.818) Active confirmed Problem 620071712 Long-term use of aspirin therapy (Z79.82) Active confirmed Problem Diverticulosis of colon (820596438) Diverticulosis of colon (K57.30) Active confirmed Plan Of Treatment Pending Test Test Name Order Date Pathology 07/22/2021 Future Test Test Name Order Date COLONOSCOPY 12/18/2018 COLONOSCOPY 03/17/2021 Next Appt Details Provider Name:Omid Green , 10/23/2024 10:20:00 AM, [address] [place] [address], [address], [place], [address], Insurance Providers Payer Name Payer Address Payer Phone Subscriber Number Group Number Insured Name Patient Relationship to Insured Coverage Start Date Coverage End Date MEDICARE OF [place] [address] [place] [address] [id number] RYNE AMBRIZ Self - patient is the insured [employer] ATT[employer] CLAIMS [address] [place] [address] [id number] RYNE AMBRIZ Self - patient is the insured Medical (General) History Medical History History ICD Code Denies [place],CVA,Lung disease,renal disease Sleep apnea-uses CPAP NIDDM UTI HTN Anxiety Hyperlipidemia Colonoscopy in 2003 with a s mall tubular adenoma removed; neg. colonoscopy in 2010 Cortisone injection in knee left Surgical History Surgery Date(Month/Year) Cataract-lens implants- left eye
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
== END 2024-10-17 16:11 | disposition home or self-care (01) ==
LOC: HO.LAB 16:10
PROVIDERS: PCP Internal Medicine; Visit Provider Internal Medicine
DX: Z13.89 Encounter for screening for other disorder (principal)

== ENCOUNTER 2024-10-18 09:54 | Outpatient (REF) | payer MEDICARE, SELFPAY ==
--- OUTSIDE RECORDS SUMMARY | 2024-10-18 09:56 | XMS_ITS | Patient Health Record ---
Author Organization [facility] Address [address] [place] [address] Care Team Providers Care Airworthiness Safety Inspector Name Role Phone JANET CORNOADO Primary Care Provider Omid Rogers Unavailable [phone] Allergies No Known Allergies Reason For Referral [...] Problem Status W/U Status Risk Notes Problem 550179423 Encounter for screening for malignant neoplasm of colon (Z12.11) Active confirmed Problem 450590045 History of adenomatous polyp of colon (Z86.010) Active confirmed Problem 109864353580382 Preprocedural examination (Z01.818) Active confirmed Problem 943611312 Long-term use of aspirin therapy (Z79.82) Active confirmed Problem Diverticulosis of colon (302475474) Diverticulosis of colon (K57.30) Active confirmed Plan Of Treatment Pending Test Test Name Order Date Pathology 07/22/2021 Future Test Test Name Order Date COLONOSCOPY 12/18/2018 COLONOSCOPY 03/17/2021 Next Appt Details Provider Name:Omid Green , 10/23/2024 10:20:00 AM, [address] [place] [address], [address], [place], [address], Insurance Providers Payer Name Payer Address Payer Phone Subscriber Number Group Number Insured Name Patient Relationship to Insured Coverage Start Date Coverage End Date MEDICARE OF [place] [address] [place] [address] [id number] RYNE ABMRIZ Self - patient is the insured [employer] ATT[employer] CLAIMS [address] [place] [address] [id number] RYNE AMBRIZ Self - patient is the insured Medical (General) History Medical History History ICD Code Denies [place],CVA,Lung disease,renal disease Sleep apnea-uses CPAP NIDDM UTI HTN Anxiety Hyperlipidemia Colonoscopy in 2003 with a s mall tubular adenoma removed; neg. colonoscopy in 2010 Cortisone injection in knee left Surgical History Surgery Date(Month/Year) Cataract-lens implants- left eye
[2024-10-18 10:45] LABS: Appearance Urine Cloudy; Glucose Urine UA Negative (Negative); PH 7.0 (5.0-9.0); Specific Gravity - Urine 1.015 (1.005-1.025); UMIC TRIGGER UA YES
== END 2024-10-18 09:55 | disposition home or self-care (01) ==
LOC: HO.LNP 09:54
PROVIDERS: Visit Provider Internal Medicine
DX: R30.0 Dysuria (principal)
CPT/HCPCS: 81001; 87086

== ENCOUNTER 2024-11-25 08:56 | Outpatient (AMB) | payer MEDICARE, SELFPAY ==
--- NOTE | 2024-11-25 09:03 | A.OFFPC_ITS ---
Vital Signs 11/25/24 09:09 11/25/24 09:27 Height 5 ft 8 in Weight 124.738 kg BMI 41.8 BP 144/64 H 124/68 Respiration 18 Pulse 74 Pulse Source Pulse Oximeter Temp 98.6 F Temp Source Temporal Artery Scan Pulse Oximetry (%) 96 Oxygen Delivery Method Room Air Intake Visit Reasons: 3 month f/u Artificial Breeding Distributor Required: No Accompanied by: Other Relationship Allergies acetaminophen (From Tylenol) Allergy (Mild, Verified 11/25/24 09:03) Diarrhea Medication List - Last Reconciled 11/25/24 by LAMONT White amlodipine 5 mg PO DAILY aspirin 81 mg PO DAILY cholecalciferol (vitamin D3) (Vitamin D3) 125 mcg PO DAILY citalopram 20 mg PO DAILY glipizide ER 5 mg PO BID hydrochlorothiazide 12.5 mg PO DAILY lisinopril 20 mg PO BID lorazepam mg PO metformin 1,000 mg (2 x 500 mg) PO BID miconazole nitrate 2% (Miconazole-7) 1 appful vaginal BEDTIME 7 days multivitamin with folic acid 400 mcg (Daily-Dusty (with folic acid)) 1 tab PO BID naproxen 250 mg PO BID PRN primidone 50 mg PO TID simvastatin 10 mg PO BEDTIME triamcinolone acetonide 0.1% 1 appl topical BID PRN Tobacco use date assessed: 07/28/24 Dental Screening Dental Screen Date: 07/28/24 HPI HPI Comments History of Present Illness Details Patient with history of type 2 diabetes, htn, and CONCHITA presents to the office for routine followup accompanied by her friend for follow-up Anxiety- much improved since increase in citalopram. Lorazepam PRN HTN- amlodipine 5mg added last visit. Also on lisinopril 20 mg BID and HCTZ. BPs at home fluctuating. Controlled in office today Type 2 DM- due for a1c. On metformin and glipizide. Eye exams UTD. Not always compliant with dm diet OSA_ on cpap Concerns: Has had several mechanical falls related to her feet. Has left ankle instability which is likely complicating her left knee pain. She will be following with Orthopedic surgery and undergoing cortisone injection in 2 weeks. [facility] the left ankle. She is using a cane Serous drainage from the left ear-no pain, blood, tinnitus, hearing loss Itchy rash on the hands bilaterally ROS: See HPI EXAM: Constitutional - Awake and Alert, No apparent distress Eyes - PERRL Ears-external ears normal, canals clear, TMs pearly hicks and intact Cardiovascular - S1S2, RRR, No edema Respiratory - Normal lung expansion, Normal respiratory effort, No respiratory distress, CTA bilaterally Extremities - no calf tenderness bilaterally, no swelling Skin - Warm/Dry. Dry scaling rash on the palmar aspect of the hands bilaterally Neurological - Alert & oriented x3 Psychological - Appropriate affect [facility] Medical History (Updated 11/25/24 @ 12:51 by PREETI Colón) Anxiety and depression Hyperlipidemia Tension headache Osteoarthritis of right ankle Hx of head injury Arthritis Elevated cholesterol Anxiety CONCHITA on CPAP Diabetes HTN (hypertension) Surgical History Hx of bilateral cataract extraction Hx of colonoscopy (~07/22/21) Family History Father Diabetes Heart attack High blood pressure Mother Diabetes Social History Housing: House Alcohol intake: never Patient Tobacco Use Status: Never used Tobacco e-Cigarette/Vaping Use: Never Used service: No Current occupational status: retired Current occupation: rt handed Cognitive needs: Yes (cane) Hearing needs: No Vision needs: Yes (reading glasses) Female Reproductive History Menstrual Age of Menarche: 15 Questionnaire Thrive Questionnaire Date Thrive assessed: 07/28/24 EARLINE-7 AMB Questionnaire EARLINE-7 Date EARLINE - 7 assessed: 07/28/24 Source: Developed by Drs. Omid Blankenship, Tabitha De, Jasper Longoria and colleagues, with an educational brian from [employer]. Physical exam (Primary Care) Vital Signs: Last Vital Signs Temp 98.6 F 11/25/24 09:09 Pulse 74 11/25/24 09:09 Resp 18 11/25/24 09:09 BP 124/68 11/25/24 09:27 Pulse Ox 96 11/25/24 09:09 Oxygen Delivery Method Room Air 11/25/24 09:09 BMI result Body Mass Index 41.8 Tobacco/Smoking Status: Tobacco use Status Tobacco use date assessed 07/28/24 11/25/24 09:04 Patient Tobacco Use Status Never used Tobacco 11/25/24 09:04 e-Cigarette/Vaping Use Never Used 11/25/24 09:04 Thrive Assessment: Date of Thrive Assessment Date Thrive assessed 07/28/24 11/25/24 09:04 Coding Level of Care Code Est Pt Level 4 (58930) Complex EM visit Add On G2211 Diagnoses HTN (hypertension) I10 Elevated cholesterol E78.00 Diabetes E11.9 Rash R21 Emotional lability R45.86 Assessment & Plan Assessment & Plan (1) HTN (hypertension): Code(s): I10 - Essential (primary) hypertension Category: Medical Plan: Controlled on recheck. Continue current therapies (2) Elevated cholesterol: Code(s): E78.00 - Pure hypercholesterolemia, unspecified Category: Medical Plan: Controlled. Continue simvastatin (3) Diabetes: Code(s): E11.9 - Type 2 diabetes mellitus without complications Category: Medical Plan: Control improved. Continue glipizide, metformin (4) Rash: Code(s): R21 - Rash and other nonspecific skin eruption Category: Medical Plan: Trial triamcinolone. Should she have no improvement, can refer to Dermatology (5) Emotional lability: Code(s): R45.86 - Emotional lability Category: Medical Plan: Much improved. Continue Celexa and lorazepam p.r.n. Plan Follow-up in the office in 3 months with labs completed following visit. Referred to orthopedics for further evaluation of ankle instability Orders: Orders Basic Metabolic Panel 11/25/24 E11.9 - Type 2 diabetes mellitus without complications, I10 - Essential (primary) hypertension Hemoglobin A1c 11/25/24 E11.9 - Type 2 diabetes mellitus without complications, I10 - Essential (primary) hypertension Hemoglobin A1c 3 Months E11.9 - Type 2 diabetes mellitus without complications, E78.00 - Pure hypercholesterolemia, unspecified, I10 - Essential (primary) hypertension Lipid Panel 3 Months E11.9 - Type 2 diabetes mellitus without complications, E78.00 - Pure hypercholesterolemia, unspecified, I10 - Essential (primary) hypertension Basic Metabolic Panel 3 Months E11.9 - Type 2 diabetes mellitus without complications, E78.00 - Pure hypercholesterolemia, unspecified, I10 - Essential (primary) hypertension Complete Blood Count Auto Diff 3 Months E11.9 - Type 2 diabetes mellitus without complications, E78.00 - Pure hypercholesterolemia, unspecified, I10 - Essential (primary) hypertension Referrals Orthopedics Referral M25.372 - Other instability, left ankle Medications: New triamcinolone acetonide 0.1% 1 appl topical BID PRN 30 grams 1RF rash
[2024-11-25 09:09] VITALS: BP 144/64; PULSE 74; RESP 18; TEMP 37; O2SAT 96; BMI 41.8
--- OUTSIDE RECORDS SUMMARY | 2024-11-25 09:15 | XMS_ITS | Patient Health Record ---
Author Organization [facility] Address [address] [place] [address] Care Team Providers Care Material Lister Name Role Phone JANET CORONADO Primary Care Provider Omid Rogers Unavailable [phone] Allergies Allergen (clinical drug ingredient) Drug/Non Drug Allergy documented on EMR Reaction Allergy Type Onset Date Status acetaminophen Acetaminophen Unknown Drug Allergy Active Reason For Referral No Information Medications Medication SIG (Take, Route, Frequency, Duration) Notes Start Date End Date Status amLODIPine Besylate 5 MG TAKE 1 TABLET D AILY Oral for 90 Days Active Citalopram Hydrobromide 10 MG 1 tablet O rally Once a day for 30 day(s) Active Citalopram Hydrobromide 20 MG TAKE 1 TAB LET DAILY Oral for 90 Days Active Primidone 50 MG TAKE 1 TABLET 3 TIME S A DAY Oral for 90 Days Active metFORMIN HCl 500 MG TAKE 2 TABLETS TWIC E A DAY Oral for 90 Days Active Fluconazole 150 MG Oral for 6 Days Active Citalopram Hydrobromide 10 MG TAKE 1 TAB LET ONCE DAILY Oral for 90 Days Active Cranberry 425 MG as directed Orally Active amLODIPine Besylate 2.5 MG TAKE 1 TABLET ONCE DAILY Oral for 90 Days Active Ammonium Lactate 12 % External for 30 Days Active amLODIPine Besylate 2.5 MG 1 tablet Oral ly Once a day Active hydroCHLOROthiazide 12.5 MG Oral for 90 Days Active Sertraline HCl 25 MG TAKE 1 TABLET ONCE DAILY Oral for 90 Days Active Citalopram & Diet Manage Prod Active Naproxen 250 MG TAKE 1 TABLET TWICE A DAY NEEDED FOR PAIN Oral for 30 Days Active Multivitamin - 1 tablet Orally Once a day for 30 day(s) Active glipiZIDE ER 5 MG TAKE 1 TABLET TWICE A DAY Oral for 90 Days Active metFORMIN HCl 500 MG 1 tablet with a [place] l Orally twice a day Active Lisinopril 20 MG TAKE 1 TABLET 2 TIME S DAILYAS DIRECTED Oral for 90 Days Active Simvastatin 10 MG 1 tablet in the evening Orally Once a day for 30 day(s) Active Meclizine HCl 25 MG Oral for 7 Days Active Adelso Aspirin EC Low Dose 81 MG 1 tablet Orally Once a day for 30 day(s) Active Cefuroxime Axetil 500 MG TAKE 1 TABLET 2 TIMES DAILYFOR 7 DAYS Oral for 7 Days Active Lisinopril 20 MG 1 tablet Orally twic e a day Active Immunizations Vaccine Route Administration Date Status Comme nts Influenza Unknown 01/30/2018 Administered Influenza Unknown 12/31/2020 Administered Influenza Unknown 01/15/2024 Administered Social History Tobacco Use: Social History Observation Description Date Details (start date - stop date) Never Smoker NA - NA Tobacco Use/Smoking Question Answer Notes Patient is a nonsmoker Alcohol Screen Question Answer Notes Did you have a drink containing alcohol in the p ast year? No Points 0 Interpretation Negative Section Notes: Nonsmoker; no sig alcohol Nonsmoker; no sig alcohol Nonsmoker; no sig alcohol Problems Problem Type SNOMED Code ICD Code Onset Dates Problem Status W/U Status Risk Notes Problem 393050063 Encounter for screening for malignant neoplasm of colon (Z12.11) Active confirmed Problem 658567484 History of adenomatous polyp of colon (Z86.010) Active confirmed Problem 974659820394384 Preprocedural examination (Z01.818) Active confirmed Problem 846549851 Long-term use of aspirin therapy (Z79.82) Active confirmed Problem Diverticulosis of colon (562318086) Diverticulosis of colon (K57.30) Active confirmed Vital Signs Temperature 97.1 degrees Fahrenheit 10/23/2024 Blood pressure diastolic 01 mm Hg 10/23/2024 Height 68 in 10/23/2024 Blood pressure systolic 001 mm Hg 10/23/2024 Weight 273.4 lbs 10/23/2024 BMI 41.57 kg/m2 10/23/2024 Encounters Encounter Location Date Provider Diagnosis [facility] [address] [place] [address] 10/23/2024 Omid Green History of adenomato us polyp of colon Z86.010 ; Preprocedural examination Z01.818 and Encounter for screening for malignant neoplasm of colon Z12.11 Assessments Encounter Date Diagnosis (ICD Code) Assessment Notes Treatment Notes Treatment Clinical Notes Section Notes 10/23/2024 History of adenomatous polyp of colon (ICD-10 - Z86.010) Overall, Heide appears well from a GI standpoint and is not having any new or worrisome GI complaints. We did review the findings on her colonoscopy from just over 3 years ago. Based on that, no significant family history of colorectal cancer, no sign of anemia, and no GI complaints, I do not think a colonoscopy is required at this time. We did review that I would recommend a 5-year follow-up which would be in 2026. As long as she is doing well from a GI standpoint she could see me in the interim on a prn basis. I did advise her to certainly call if she has any particular problems such as change in bowel habits or rectal bleeding. Heide and her friend were comfortable with this plan. Thank you again for allowing me to have participated in [facility] care. Please do not hesitate to contact me if I can be of any further assistance in the future. 10/23/2024 Preprocedural examination (ICD-10 - Z01.818) Overall, Heide appears well from a GI standpoint and is not having any new or worrisome GI complaints. We did review the findings on her colonoscopy from just over 3 years ago. Based on that, no significant family history of colorectal cancer, no sign of anemia, and no GI complaints, I do not think a colonoscopy is required at this time. We did review that I would recommend a 5-year follow-up which would be in 2026. As long as she is doing well from a GI standpoint she could see me in the interim on a prn basis. I did advise her to certainly call if she has any particular problems such as change in bowel habits or rectal bleeding. Heide and her friend were comfortable with this plan. Thank you again for allowing me to have participated in [facility] care. Please do not hesitate to contact me if I can be of any further assistance in the future. 10/23/2024 Encounter for screening for malignant neoplasm of colon (ICD-10 - Z12.11) Repeat colonoscopy in 07/2026 Overall, Heide appears well from a GI standpoint and is not having any new or worrisome GI complaints. We did review the findings on her colonoscopy from just over 3 years ago. Based on that, no significant family history of colorectal cancer, no sign of anemia, and no GI complaints, I do not think a colonoscopy is required at this time. We did review that I would recommend a 5-year follow-up which would be in 2026. As long as she is doing well from a GI standpoint she could see me in the interim on a prn basis. I did advise her to certainly call if she has any particular problems such as change in bowel habits or rectal bleeding. Heide and her friend were comfortable with this plan. Thank you again for allowing me to have participated in Heide's care. Please do not hesitate to contact me if I can be of any further assistance in the future. Plan Of Treatment Future Test Test Name Order Date COLONOSCOPY 12/18/2018 COLONOSCOPY 03/17/2021 Insurance Providers Payer Name Payer Address Payer Phone Subscriber Number Group Number Insured Name Patient Relationship to Insured Coverage Start Date Coverage End Date MEDICARE OF [place] [address] [place] [address] [phone] [id number] HEIDE AMBRIZ Self - patient is the insured MED[employer] ATT[employer] CLAIMS [address] [place] [address] [id number] HEIDE AMBRIZ Self - patient is the insured Medical (General) History Medical History History ICD Code Denies [place],CVA,Lung disease,renal disease Sleep apnea-uses CPAP NIDDM UTI HTN Anxiety Hyperlipidemia Colonoscopy in 2003 with a s mall tubular adenoma removed; neg. colonoscopy in 2010 Cortisone injection in knee left Essential tremors Nodules on thyroid- -biopsies were OK Colonoscopy 2021 with a small tubular ad enoma Surgical History Surgery Date(Month/Year) Cataract-lens implants- left eye
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
[2024-11-25 09:27] VITALS: BP 124/68
== END 2024-11-25 09:40 | disposition home or self-care (01) ==
LOC: HO.HMCHD 08:56
PROVIDERS: PCP Internal Medicine; Visit Provider Physician Assistant
DX: I10 Essential (primary) hypertension (principal); E78.00 Pure hypercholesterolemia, unspecified; E11.9 Type 2 diabetes mellitus without complications; R21 Rash and other nonspecific skin eruption; R45.86 Emotional lability

== ENCOUNTER → 2024-11-25 08:56 | Outpatient (BNVA) | payer MEDICARE, SELFPAY | PROVIDERS: PCP Internal Medicine; Visit Provider Physician Assistant | DX: I10 Essential (primary) hypertension (principal); E78.00 Pure hypercholesterolemia, unspecified; E11.9 Type 2 diabetes mellitus without complications; R21 Rash and other nonspecific skin eruption; R45.86 Emotional lability; G47.33 Obstructive sleep apnea (adult) (pediatric); Z79.84 Long term (current) use of oral hypoglycemic drugs; Z79.899 Other long term (current) drug therapy; Z99.89 Dependence on other enabling machines and devices | CPT/HCPCS: 99212 ==

== ENCOUNTER 2024-11-25 09:50 | Outpatient (REF) | payer MEDICARE, SELFPAY ==
[2024-11-25 11:33] LABS: Hemoglobin A1C 187.8413 umol/L; Total Hemoglobin (HGBA1C) 3073.8866 umol/L
[2024-11-25 11:57] LABS: Anion Gap 14 (12-20); Blood Urea Nitrogen 17 mg/dL (9-16); Calcium 9.0 mg/dL (8.4-10.2); Carbon Dioxide 27 mmol/L (22-29); Chloride 101 mmol/L (96-108); Estimated Glomerular Filt Rate > 60; Potassium 4.3 mmol/L (3.3-5.1); Sodium 138 mmol/L (135-145)
== END 2024-11-25 09:51 | disposition home or self-care (01) ==
LOC: HO.10HDL 09:50
PROVIDERS: Visit Provider Physician Assistant
DX: I10 Essential (primary) hypertension (principal); E11.9 Type 2 diabetes mellitus without complications
CPT/HCPCS: 36415; 80048; 83036

== ENCOUNTER 2024-12-03 09:51 | Outpatient (AMB) | payer MEDICARE, SELFPAY ==
--- OUTSIDE RECORDS SUMMARY | 2024-11-28 09:00 | XMS_ITS ---
Author Organization [facility] Address [address] [place] [address] Care Team Providers Care Boiler Tender Name Role Phone Judy Jeffery Primary Care Provider Unavailabl Agustin Benito Unavailable [phone] Encounters Encounter Location Date Provider Diagnosis [address] [address] 11/28/2024 Agustin Whiteside Plan Of Treatment Next Appt Details Provider Name:Agustin Whiteside , 03/17/2025 10:00:00 AM, [address] [place] [address], [phone], Progress Notes * Heide ROMERO ADOB:08/1950 (74 yo F)Acc No.[id number]:11/28/2024 Progress Note Patient: Sadia LEWISVIRI Heide Gabo Provider: Angelita Whiteside DPM :1950 A ge:74 Y S ex:Female Date:11/28/2024 Address:[address] [place] [phone] Pcp:Judy Jeffery Subjective: * Chief Complaints: * [...] 0 11/28/2024 Generated for Jada pierce/Eula/Benji on: 0 12/03/2024 11:00 AM EDT
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
--- NOTE | 2024-12-03 09:53 | A.OFFVIS_ITS ---
Vital Signs 12/03/24 09:53 Height 5 ft 8 in Intake Visit Reasons: 4m follow up Accompanied by: Friend Allergies acetaminophen (From Tylenol) Allergy (Mild, Verified 12/03/24 10:02) Diarrhea Medication List - Last Reconciled 12/03/24 by Yashira Batres CNP amlodipine 5 mg PO DAILY aspirin 81 mg PO DAILY cholecalciferol (vitamin D3) (Vitamin D3) 125 mcg PO DAILY citalopram 20 mg PO DAILY glipizide ER 5 mg PO BID hydrochlorothiazide 12.5 mg PO DAILY lisinopril 20 mg PO BID lorazepam mg PO metformin 1,000 mg (2 x 500 mg) PO BID miconazole nitrate 2% (Miconazole-7) 1 appful vaginal BEDTIME 7 days multivitamin with folic acid 400 mcg (Daily-Dusty (with folic acid)) 1 tab PO BID naproxen 250 mg PO BID PRN primidone 100 mg PO BID simvastatin 10 mg PO BEDTIME triamcinolone acetonide 0.1% 1 appl topical BID PRN HPI Comments Details: 74-year-old woman with CONCHITA using CPAP, diabetes, anxiety, OA following with orthopedics, and tremulousness in her hands which began in 2022 and in head. No known history of head trauma. She was here with her friend. She was doing okay. Tremors were stable. Most days she was okay in terms of function. No difficulty eating, drinking, or swallowing. Stress increases her tremors, and she has services to attend in the near future for family member who passed. Her friend was asking what could be done to help manage her anxiety. [facility] Medical History (Updated 12/03/24 @ 11:19 by Yashira Batres CNP) Anxiety and depression Hyperlipidemia Tension headache Osteoarthritis of right ankle Hx of head injury Arthritis Elevated cholesterol Anxiety CONCHITA on CPAP Diabetes HTN (hypertension) Surgical History Hx of bilateral cataract extraction Hx of colonoscopy (~07/22/21) Family History Father Diabetes Heart attack High blood pressure Mother Diabetes Social History Housing: House Alcohol intake: never Patient Tobacco Use Status: Never used Tobacco e-Cigarette/Vaping Use: Never Used service: No Current occupational status: retired Current occupation: rt handed Cognitive needs: Yes (cane) Hearing needs: No Vision needs: Yes (reading glasses) Female Reproductive History Menstrual Age of Menarche: 15 Review of Systems Const Denies chills, Denies daytime sleepiness, Denies difficulty sleeping, Denies fatigue, Denies fever(s), Denies frequent falls, Reports headache(s), Denies increased appetite, Denies poor appetite, Denies snoring, Denies weakness, Denies weight gain and Denies weight loss Eyes Denies loss of vision ENT Denies vertigo, Denies dizziness, Reports headache(s) and Denies neck pain Card Denies chest pain at rest, Denies chest pain with activity, Denies syncope, Denies leg edema, Denies palpitations, Denies dyspnea and Denies dyspnea on exertion Resp Denies cough, Denies dyspnea, Denies dyspnea on exertion and Denies snoring GI Denies abdominal pain, Denies constipation, Denies heartburn, Denies diarrhea and Denies nausea Denies urinary frequency, Denies urinary incontinence and Denies urinary urgency Musc Denies abnormal gait, Denies back pain, Denies myalgias, Denies arthralgias, Denies neck pain, Denies numbness and Denies tingling Neuro Denies abnormal gait, Denies vertigo, Denies dizziness, Denies syncope, Denies frequent falls, Reports headache(s), Denies lack of coordination, Denies loss of vision, Denies memory loss, Denies numbness, Denies Other visual disturbances, Denies restless legs, Denies seizure-like activity, Denies tingling, Denies paresthesias, Reports tremor(s) and Denies weakness Psych Reports anxiety, Reports depression, Denies auditory hallucinations, Denies memory loss and Denies visual hallucinations Endo Denies fatigue and Denies palpitations Physical Exam Const Other: General Appearance:? normal, in no acute distress. Heart:? S1, S2 normal, no murmurs. Lungs:? clear anteriorly and posteriorly. Musculoskeletal:? normal. Extremities:? no edema. Psych:? alert, oriented, cognitive function intact, cooperative with exam. Neuro Other: Abnormal Neurological Findings:?Slight?head titubation tremor. Very slight tremor of the extended upper extremities R>L. No increase with upolxr-ku-uhjq test. No signs of Parkinson's disease. Walking in cane. Mental Status: alert and oriented X 3. Normal attention, orientation, memory, and affect. Cranial Nerves: Pupils are equal, round, and reactive to light. External ocular muscles are intact. Visual bee are full, no ptosis. Face is symmetrical, no facial weakness or droop. Facial sensations are normal. Tongue protrudes in midline. Palate elevates symmetrically. Shoulder shrugging is normal Motor Examination: Normal muscle tone, bulk and strength. No atrophy or fasciculations. No drift of the extended upper extremities. DTR 2+. Plantars are flexor. Sensory Exam: Normal light touch, temperature, pinprick, vibration, and joint- position sensations. Rhomberg sign is absent. Coordination: No ataxia. No titubation. Gait Exam: With cane. Cerebellar Signs: Vamknz-cu-pwqk is okay. Extrapyramidal System: Tremor as above. No rigidity with normal facial expressions. No bradykinesia. No bradyphrenia. Normal arm swing and posture. No propulsion or retropulsion. Speech: Normal. Results Reviewed Results Reviewed: [address] [address] Magnetic Resonance Report Signed Patient: Heide Romero MR#: [id number] : 1950 Acct:[id number] Age/Sex: 74 / F ADM Date: 09/15/24 Loc: HO.MRI Attending Dr: Judy MIGUEL Ordering Physician: Judy Jeffery Date of Service: 09/15/24 Procedure(s): MR head/brain wo con Accession Number(s): [id number] cc: Judy Jeffery; Manan Riley MD~ CLINICAL HISTORY: R45.86 - Emotional lability MR BRAIN WITHOUT GADOLINIUM Comparison: CT/SR - CT HEAD/BRAIN WO IV CON - 09/08/24 21:51 EDT Findings: No restricted diffusion. No intra-axial mass or hemorrhage. There is a 1 cm well-circumscribed cystic lesion in the left temporal lobe for which the possibility of a perivascular cyst is raised and is of doubtful clinical significance. No midline shift. No hydrocephalus. Vascular flow voids are intact. Visualized orbits: Bilateral aphakia. No sinus fluid. There is opacification of multiple right mastoid air cells. No focal bone lesion. IMPRESSION: 1. No acute infarct, hemorrhage or mass lesion. 2. Nonspecific partial right mastoid opacification. 3. Small burden of periventricular and subcortical white matter signal alteration. This is a nonspecific finding that can be seen in the setting of age advanced microangiopathy, remote trauma, prior infectious/inflammatory process (such as demyelination) or can be seen with increased frequency in patients with a history of migraine headaches. This document has been electronically signed by: Ml Stevenson DO on 09/15/2024 20:10:[address] [place] [id number] [address] Scan Report Signed Patient: Heide Romero MR#: [id number] : 1950 cct:[id number] Age/Sex: 74 / F ADM Date: 09/08/24 Loc: HO.ED Attending Dr: Ordering Physician: Cory Urias MD Date of Service: 09/08/24 Procedure(s): CT head/brain wo IV con Accession Number(s): [id number] cc: Physician,Unknown ; Cory Urias MD~ Report Number: [id number]: Total DLP = 721.00 mGy-cm CLINICAL HISTORY: diziness CT head without contrast Comparison: None Findings: No intra-axial mass, midline shift, hydrocephalus, or acute hemorrhage. Mild atrophy-like change or white matter disease. The visualized paranasal sinuses and mastoid air cells are normal. The orbits are unremarkable. No skull fracture. IMPRESSION: 1. No acute intracranial findings. This document has been electronically signed by: Stacey Nelson MD on 09/08/2024 22:41:33 Assessment & Plan Assessment & Plan (1) Essential tremor: Code(s): G25.0 - Essential tremor Category: Medical Plan: CT and MRI results reviewed, no acute findings, nonspecific white matter changes. Continue primidone 50mg 2 tablets twice a day. (2) Anxiety: Code(s): F41.9 - Anxiety disorder, unspecified Category: Medical Plan: She was prescribed citalopram 20mg by PCP, and she also had lorazepam as needed. She was advised to follow up with PCP for anxiety management. She may also benefit from working with therapist or psychiatrist. Coding Level of Care Code Est Pt Level 4 (78121) Diagnoses Essential tremor G25.0 Anxiety F41.9
--- OUTSIDE RECORDS SUMMARY | 2024-12-03 11:01 | XMS_ITS | Patient Health Record ---
Author Organization [facility] Address [address] [place] [address] Care Team Providers Care Policy Change Clerks Supervisor Name Role Phone JANET CORONADO Primary Care Provider Omid Rogers Unavailable [phone] Allergies Allergen (clinical drug ingredient) Drug/Non Drug [...] Problem Status W/U Status Risk Notes Problem 520126624 Encounter for screening for malignant neoplasm of colon (Z12.11) Active confirmed Problem 532650107 History of adenomatous polyp of colon (Z86.010) Active confirmed Problem 863276455241928 Preprocedural examination (Z01.818) Active confirmed Problem 220610287 Long-term use of aspirin therapy (Z79.82) Active confirmed Problem Diverticulosis of colon (836885176) Diverticulosis of colon (K57.30) Active confirmed Vital Signs Temperature 97.1 degrees Fahrenheit 10/23/2024 Blood pressure diastolic 01 mm Hg 10/23/2024 Height 68 in 10/23/2024 Blood pressure systolic 001 mm Hg 10/23/2024 Weight 273.4 lbs 10/23/2024 BMI 41.57 kg/m2 10/23/2024 Encounters Encounter Location Date Provider Diagnosis [facility] [address] [place] [address] 10/23/2024 Omid Green History of adenomato us [...] Date MEDICARE OF [place] [address] [place] [address] [phone] [id number] HEIDE AMBRIZ Self - patient is the insured [employer] CLAIM[employer] [address] [place] [address] [id number] HEIDE AMBRIZ Self - patient is the insured Medical (General) History Medical History History ICD Code Denies MT,CVA,Lung disease,renal disease Sleep apnea-uses CPAP NIDDM UTI HTN Anxiety Hyperlipidemia Colonoscopy in 2003 with a s mall tubular adenoma removed; neg. colonoscopy in 2010 Cortisone injection in knee left Essential tremors Nodules on thyroid- -biopsies were OK Colonoscopy 2021 with a small tubular ad enoma Surgical History Surgery Date(Month/Year) Cataract-lens implants- left eye
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
== END 2024-12-03 10:21 | disposition home or self-care (01) ==
LOC: HO.HSM 09:51
PROVIDERS: PCP Internal Medicine; Referring Provider Internal Medicine; Visit Provider Registered Nurse
DX: G25.0 Essential tremor (principal); F41.9 Anxiety disorder, unspecified
CPT/HCPCS: 99214

== ENCOUNTER → 2024-12-03 09:51 | Outpatient (BNVA) | payer MEDICARE, SELFPAY | PROVIDERS: PCP Internal Medicine; Referring Provider Internal Medicine; Visit Provider Registered Nurse | DX: G25.0 Essential tremor (principal); F41.9 Anxiety disorder, unspecified; Z79.899 Other long term (current) drug therapy | CPT/HCPCS: 99212 ==

== ENCOUNTER 2024-12-16 10:33 | Outpatient (REF) | payer MEDICARE, SELFPAY ==
--- OUTSIDE RECORDS SUMMARY | 2024-11-28 09:00 | XMS_ITS ---
Author Organization [facility] Address [address] [place] [address] Care Team Providers Care Community Case Manager Name Role Phone Judy Jeffery Primary Care Provider Unavailabl Agustin Benito Unavailable [phone] Encounters Encounter Location Date Provider Diagnosis [address] [address] 11/28/2024 Agustin Whiteside Plan Of Treatment Next Appt Details Provider Name:Agustin Whiteside , 03/17/2025 10:00:00 AM, [address] [place] [address], [phone], Progress Notes * Heide ROMERO ADOB:08/1950 (74 yo F)Acc No.[id number]:11/28/2024 Progress Note Patient: Sadia LEWISVIRI Heide Gabo Provider: Angelita Whiteside DPM :1950 A ge:74 Y S ex:Female Date:11/28/2024 Address:[address] [place] [phone] Pcp:Judy Jeffery Subjective: * Chief Complaints: * [...] 11/28/2024 Generated for Jada pierce/Eula/Benji on: 0 12/17/2024 12:59 PM EDT
--- NOTE | ~2024-12-16 | XR_ITS ---
EXAMINATION: XR KNEE 3 VIEWS LEFT HISTORY: M25.569 - Pain in unspecified knee COMPARISON: Comparison is made with the prior examination dated 11/13/2022. FINDINGS: Standing AP views of both knees as well as lateral and sunrise patellar views of the left knee are submitted. Osseous mineralization is normal. There is no fracture or dislocation. There is severe osteoarthritis of the medial compartment with joint space narrowing and osteophyte formation. Moderate osteoarthritis is seen involving the patellofemoral compartment. There is moderate narrowing of the medial compartment of the right knee. The soft tissues are unremarkable. There is no joint effusion. XR/XR knee LT 3V IMPRESSION: Osteoarthritis as described. Electronically signed by: Omid Lai MD 12/16/2024 01:46 PM EDT
--- OUTSIDE RECORDS SUMMARY | 2024-12-17 12:59 | XMS_ITS | Patient Health Record ---
Author Organization [facility] Address [address] [place] [address] Care Team Providers Care Naval Architect Specialist Name Role Phone JANET CORONADO Primary Care Provider Omid Rogers Unavailable [phone] Allergies Allergen (clinical drug ingredient) Drug/Non Drug [...] Problem Status W/U Status Risk Notes Problem 450201327 Encounter for screening for malignant neoplasm of colon (Z12.11) Active confirmed Problem 701070660 History of adenomatous polyp of colon (Z86.010) Active confirmed Problem 280409400384495 Preprocedural examination (Z01.818) Active confirmed Problem 642124946 Long-term use of aspirin therapy (Z79.82) Active confirmed Problem Diverticulosis of colon (579513399) Diverticulosis of colon (K57.30) Active confirmed Vital Signs Temperature 97.1 degrees Fahrenheit 10/23/2024 Blood pressure diastolic 01 mm Hg 10/23/2024 Height 68 in 10/23/2024 Blood pressure systolic 001 mm Hg 10/23/2024 Weight 273.4 lbs 10/23/2024 BMI 41.57 kg/m2 10/23/2024 Encounters Encounter Location Date Provider Diagnosis [facility] [address] [place] [address] 10/23/2024 Omid Green History of adenomato us [...] Date MEDICARE OF [place] [address] [place] [address] [id number] HEIDE AMBRIZ Self - patient is the insured [employer] ATT[employer] CLAIMS [address] [place] [address] [id number] 6 HEIDE AMBRIZ Self - patient is the insured Medical (General) History Medical History History ICD Code Denies [place],CVA,Lung disease,renal disease Sleep apnea-uses CPAP NIDDM UTI HTN Anxiety Hyperlipidemia Colonoscopy in 2003 with a s mall tubular adenoma removed; neg. colonoscopy in 2010 Cortisone injection in knee left Essential tremors Nodules on thyroid- -biopsies were OK Colonoscopy 2021 with a small tubular ad enoma Surgical History Surgery Date(Month/Year) Cataract-lens implants- left eye
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
== END 2024-12-16 10:34 | disposition home or self-care (01) ==
LOC: HO.HOSX 10:33
PROVIDERS: Visit Provider Physician Assistant
DX: M17.12 Unilateral primary osteoarthritis, left knee (principal)
CPT/HCPCS: 20610; 73562; 99212; J0665; J1100; J2003

== ENCOUNTER 2024-12-16 13:27 | Outpatient (AMB) | payer MEDICARE, SELFPAY ==
--- OUTSIDE RECORDS SUMMARY | 2024-11-28 09:00 | XMS_ITS ---
Author Organization [facility] Address [address] [place] [address] Care Team Providers Care Cytotechnologist Name Role Phone Judy Jeffery Primary Care Provider Unavailabl Agustin Benito Unavailable [phone] Encounters Encounter Location Date Provider Diagnosis [address] [address] 11/28/2024 Agustin Whiteside Plan Of Treatment Next Appt Details Provider Name:Agustin Whiteside , 03/17/2025 10:00:00 AM, [address] [place] [address], [phone], Progress Notes * Heide ROMERO ADOB:08/1950 (74 yo F)Acc No.[id number]:11/28/2024 Progress Note Patient: Sadia LEWISVIRI Heide Gabo Provider: Angelita Whiteside DPM :1950 A ge:74 Y S ex:Female Date:11/28/2024 Address:[address] [place] [phone] Pcp:Judy Jeffery Subjective: * Chief Complaints: * [...] 11/28/2024 Generated for Jada pierce/Eula/Benji on: 0 12/16/2024 05:23 PM EDT
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
--- OUTSIDE RECORDS SUMMARY | 2024-12-16 17:24 | XMS_ITS | Patient Health Record ---
Author Organization [facility] Address [address] [place] [address] Care Team Providers Care Sand Miller Name Role Phone JANET CORONADO Primary Care Provider Omid Rogers Unavailable [phone] Allergies Allergen (clinical drug ingredient) Drug/Non Drug [...] Problem Status W/U Status Risk Notes Problem 732519613 Encounter for screening for malignant neoplasm of colon (Z12.11) Active confirmed Problem 270301060 History of adenomatous polyp of colon (Z86.010) Active confirmed Problem 767572848637150 Preprocedural examination (Z01.818) Active confirmed Problem 657118942 Long-term use of aspirin therapy (Z79.82) Active confirmed Problem Diverticulosis of colon (882409624) Diverticulosis of colon (K57.30) Active confirmed Vital Signs Temperature 97.1 degrees Fahrenheit 10/23/2024 Blood pressure diastolic 01 mm Hg 10/23/2024 Height 68 in 10/23/2024 Blood pressure systolic 001 mm Hg 10/23/2024 Weight 273.4 lbs 10/23/2024 BMI 41.57 kg/m2 10/23/2024 Encounters Encounter Location Date Provider Diagnosis [facility] [address] [place] [address] 10/23/2024 Omid Green History of adenomato us [...] change in bowel habits or rectal bleeding. Heied and her friend were comfortable with this [...] Date MEDICARE OF [place] [address] [place] [address] [id number] HEIDE AMBRIZ Self - patient is the insured [employer] ATT[employer] CLAIMS [address] [place] [address] [id number] HEIDE AMBRIZ Self - patient is the insured Medical (General) History Medical History History ICD Code Denies [place],CVA,Lung disease,renal disease Sleep apnea-uses CPAP NIDDM UTI HTN Anxiety Hyperlipidemia Colonoscopy in 2003 with a s mall tubular adenoma removed; neg. colonoscopy in 2010 Cortisone injection in knee left Essential tremors Nodules on thyroid- -biopsies were OK Colonoscopy 2021 with a small tubular ad enoma Surgical History Surgery Date(Month/Year) Cataract-lens implants- left eye
== END 2024-12-16 14:01 | disposition home or self-care (01) ==
LOC: HO.HOS 13:27
PROVIDERS: PCP Internal Medicine; Visit Provider Physician Assistant
DX: M17.12 Unilateral primary osteoarthritis, left knee (principal)
CPT/HCPCS: 20610; 99213

== ENCOUNTER → 2024-12-16 13:32 | Outpatient (BNV) | payer MEDICARE, SELFPAY | PROVIDERS: Visit Provider Radiology Diagnostic Radiology | DX: M17.12 Unilateral primary osteoarthritis, left knee (principal) | CPT/HCPCS: 73562 ==

== ENCOUNTER 2025-02-13 08:13 | Outpatient (REF) | payer MEDICARE, SELFPAY ==
--- OUTSIDE RECORDS SUMMARY | 2023-11-05 04:00 | XMS_ITS ---
Author Organization [facility] Address [address] [place] [address] Care Team Providers Care Mechanical Maintenance Engineer Name Role Phone Judy Jeffery Primary Care Provider UnavailAgustin Lang Unavailable [phone] Jeevan Jj Unavailable [phone] REASON FOR VISIT Painful nail(s) aggrevated by shoes and causing difficulty standing/walking. Medications Medication SIG (Take, Route, Frequency, Duration) Notes Start Date End Date Status Voltaren 1 % as directed Externally Active Encounters Encounter Location Date Provider Diagnosis [facility] [address] [place] [address] 11/05/2023 Jeevan Jj Tinea unguium B35.1 ; [...] Provider Name:Agustin Whiteside , 05/19/2025 09:15:00 AM, [address] [place] [address], [phone], Procedure Notes * Category Sub-Category Detail Notes [...] as necessary. Patient chooses, no pharmaceutical tx (43604) Keratoma Treatment Parring or Cutting o f Benign Hyperkeratotic Lesion(s) 95815 ( >4 Lesions) - The Benign hyperkeratotic lesions, as described above were pared, and/or cut utilizing a sterile #15 blade, tissue nippers, and/or dremel Progress Notes * Heide ROMERO ADOB:08/1950 (74 yo F)Acc No.[id number]:11/05/2023 Progress Note Patient: Sadia Heide VINSON Provider: Radha Armenta DPM :1950 A ge:73 Y S ex:Female Date:11/05/2023 Address:[address] [place] [address] larry [place], [phone] Pcp:Judy Jeffery Subjective: * Chief Complaints: * [...] C ardiovascular: Pacemaker d enies, denies. M INSURANCE PLAN SPECIALIST d enies, denies.?WPW d enies, denies. C [...] as necessary. Patient chooses, no pharmaceutical tx (03723). K eratoma Treatment: Parring or Cutting of Benign Hyperkeratotic Lesion(s) 1 1057 ( >4 Lesions) - The Benign hyperkeratotic lesions, as described above were pared, and/or cut utilizing a sterile #15 blade, tissue nippers, and/or dremel. * Procedure Codes: 1 1721 DEBRIDE NAIL, 6 OR MORE, Modifiers: XS , 52874 TRIM SKIN LESIONS, OVER 4, Modifiers: XS * Follow Up: 4 Months * Images: * The named appointment provid er may or may not be the originator of this progress note, and it is not deemed complete until electronically signed by the appointment provider. Sign off status: Pending * Provider: Radha Armenta DPM Date: 0 11/05/2023 Generated for Jada pierce/Eula/Benji on: 04/15/2024 08:20 AM EST History and Physical Notes * [...]
--- OUTSIDE RECORDS SUMMARY | 2024-01-07 05:00 | XMS_ITS ---
Author Organization [facility] Address [address] [place] [address] Care Team Providers Care Dean Of Education Name Role Phone Judy Jeffery Primary Care Provider Agustin Lopez Unavailable [phone] Griselda Bazzi Unavailable [phone] Cotto Encounters Encounter Location Date Provider Diagnosis [address] [address] 01/07/2024 Griselda Bazzi Plan Of Treatment Next Appt Details Provider Name:Agustin Whiteside , 05/19/2025 09:15:00 AM, [address] [place] [address], [phone], Progress Notes * Heide ROMERO ADOB:08/1950 (74 yo F)Acc No.[id number]:01/07/2024 Progress Note Patient: Sadia LEWISVIRI Heide Ayon Provider: Yair Bazzi DPM :1950 A ge:73 Y S ex:Female Date:01/07/2024 Address:[address] [place] [address] Pcp:Judy Jeffery Subjective: * Chief Complaints: * [address] Cotto. * Medical History: Objective: * Vitals: Assessment: Plan: * Treatment: * Images: * The named appointment provid er may or may not be the originator of this progress note, and it is not deemed complete until electronically signed by the appointment provider. Sign off status: Pending * Provider: Yair Bazzi DPM Date: Generated for Jada pierce/Eula/Benji on: 04/15/2024 08:20 AM EST
--- OUTSIDE RECORDS SUMMARY | 2024-01-08 04:30 | XMS_ITS ---
Author Organization [facility] Address [address] [place] [address] Care Team Providers Care Beet Worker Name Role Phone Judy Jeffery Primary Care Provider Agustin Lopez Unavailable [phone] Griselda Bazzi Unavailable [phone] Encounters Encounter Location Date Provider Diagnosis [address] [address] 01/08/2024 Griselda Bazzi Plan Of Treatment Next Appt Details Provider Name:Agustin Whiteside , 05/19/2025 09:15:00 AM, [address] [place] [address], [phone], Progress Notes * Heide ROMERO ADOB:08/1950 (74 yo F)Acc No.[id number]:01/08/2024 Progress Note Patient: Sadia KAREL Heide Ayon Provider: Yair Bazzi DPM :1950 A ge:73 Y S ex:Female Date:01/08/2024 Address:[address] [place] [phone] Pcp:Judy Jeffery Subjective: * Chief Complaints: * * Medical History: Objective: * Vitals: Assessment: Plan: * Treatment: * Images: * The named appointment provid er may or may not be the originator of this progress note, and it is not deemed complete until electronically signed by the appointment provider. Sign off status: Pending * Provider: Yair Bazzi DPM Date: 1 Generated for Jada pierce/Eula/Benji on: 04/15/2024 08:20 AM EST
--- OUTSIDE RECORDS SUMMARY | 2024-11-28 08:00 | XMS_ITS ---
Author Organization [facility] Address [address] [place] [address] Care Team Providers Care Blower Installer Name Role Phone Judy Jeffery Primary Care Provider Unavailabl Agustin Benito Unavailable [phone] Encounters Encounter Location Date Provider Diagnosis [address] [address] 11/28/2024 Agustin Whiteside Plan Of Treatment Next Appt Details Provider Name:Agustin Whiteside , 05/19/2025 09:15:00 AM, [address] [place], [address], Progress Notes * Heide ROEMRO ADOB:08/1950 (74 yo F)Acc No.[id number]:11/28/2024 Progress Note Patient: Sadia LEWISVIRI Heide Gabo Provider: Angelita Whiteside DPM :1950 A ge:74 Y S ex:Female Date:11/28/2024 Address:[address] [place] [address] Pcp:Judy Jeffery Subjective: * Chief Complaints: * [...] 11/28/2024 Generated for Jada pierce/Eula/Benji on: 1 04/15/2024 08:20 AM EST
--- OUTSIDE RECORDS SUMMARY | 2025-02-13 08:20 | XMS_ITS | Patient Health Record ---
Author Organization [facility] Address [address] [place] [address] Care Team Providers Care Wall Steamer Name Role Phone JANET CORONADO Primary Care Provider Omid Rogers Unavailable [phone] Allergies Allergen (clinical drug ingredient) Drug/Non Drug Allergy documented on EMR Reaction Allergy Type Onset Date Status acetaminophen Acetaminophen Unknown Drug Allergy Active Reason For Referral No Information Medications Medication SIG (Take, Route, Frequency, Duration) Notes Start Date End Date Status amLODIPine Besylate 5 MG TAKE 1 TABLET D AILY Oral; Duration: 90 Days Active Citalopram Hydrobromide 10 MG 1 tablet O rally Once a day; Duration: 30 day(s) Active Citalopram Hydrobromide 20 MG TAKE 1 TAB LET DAILY Oral; Duration: 90 Days Active Primidone 50 MG TAKE 1 TABLET 3 TIME S A DAY Oral; Duration: 90 Days Active metFORMIN HCl 500 MG TAKE 2 TABLETS TWIC E A DAY Oral; Duration: 90 Days Active Fluconazole 150 MG Oral; Duration: 6 Days Active Citalopram Hydrobromide 10 MG TAKE 1 TAB LET ONCE DAILY Oral; Duration: 90 Days Active Cranberry 425 MG as directed Orally Active amLODIPine Besylate 2.5 MG TAKE 1 TABLET ONCE DAILY Oral; Duration: 90 Days Active Ammonium Lactate 12 % External; Duration : 30 Days Active amLODIPine Besylate 2.5 MG 1 tablet Oral ly Once a day Active hydroCHLOROthiazide 12.5 MG Oral; Durati on: 90 Days Active Sertraline HCl 25 MG TAKE 1 TABLET ONCE DAILY Oral; Duration: 90 Days Active Citalopram & Diet Manage Prod Active Naproxen 250 MG TAKE 1 TABLET TWICE A DAY NEEDED FOR PAIN Oral; Duration: 30 Days Active Multivitamin - 1 tablet Orally Once a day; Duration: 30 day(s) Active glipiZIDE ER 5 MG TAKE 1 TABLET TWICE A DAY Oral; Duration: 90 Days Active metFORMIN HCl 500 MG 1 tablet with a [place] l Orally twice a day Active Lisinopril 20 MG TAKE 1 TABLET 2 TIME S DAILYAS DIRECTED Oral; Duration: 90 Days Active Simvastatin 10 MG 1 tablet in the evening Orally Once a day; Duration: 30 day(s) Active Meclizine HCl 25 MG Oral; Duration: 7 Days Active Adelso Aspirin EC Low Dose 81 MG 1 tablet Orally Once a day; Duration: 30 day(s) Active Cefuroxime Axetil 500 MG TAKE 1 TABLET 2 TIMES DAILYFOR 7 DAYS Oral; Duration: 7 Days Active Lisinopril 20 MG 1 [...] Problem Status W/U Status Risk Notes Problem Screening for malignant neoplasm of colon (706753815) Encounter for screening for malignant neoplasm of colon (Z12.11) Active confirmed Problem History of adenomatous polyp of colon (723139252) History of adenomatous polyp of colon (Z86.010) Active confirmed Problem Preprocedural examination (479097641493234) Preprocedural examination (Z01.818) Active confirmed Problem Long-term current use of antiplatelet drug (516941340613462) Long-term use of aspirin therapy (Z79.82) Active confirmed Problem Diverticulosis of colon (099875388) Diverticulosis of colon (K57.30) Active confirmed Vital Signs Temperature 97.1 degrees Fahrenheit 10/23/2024 Blood pressure diastolic 01 mm Hg 10/23/2024 Height 68 in 10/23/2024 Blood pressure systolic 001 mm Hg 10/23/2024 Weight 273.4 lbs 10/23/2024 BMI 41.57 kg/m2 10/23/2024 Encounters Encounter Location Date Provider Diagnosis [facility] [address] [place] [address] 10/23/2024 Omid Green History of adenomato us [...] Date MEDICARE OF [place] [address] [place] [address] [id number] HEIDE AMBRIZ Self - patient is the insured [employer] ATT[employer] CLAIMS [address] [place] [address] [id number] HEIDE AMBRIZ Self - patient is the insured Medical (General) History Medical History History ICD Code Denies [place],CVA,Lung [...]
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
[2025-02-13 10:16] LABS: MANUAL DIFF FLAG NO
[2025-02-13 10:31] LABS: Hematocrit 36.1 % (37.0-47.0); Hemoglobin 11.6 g/dl (12.0-16.0); Imm Gran Abs Auto 0.04 X10*3/uL (0.00-0.03); Imm Gran Pct Auto 0.5 % (0.0-0.4); Lymphocytes Absolute Auto 2.0 X10*3/uL (1.2-4.9); Mean Corpuscular HGB Conc 32.1 g/dl (31.0-35.0); Mean Corpuscular Hemoglobin 27.1 pg (27.0-33.0); Mean Corpuscular Volume 84.3 fL (80.0-98.0); NRBC Abs Auto 0.000 X10*3/uL (0.0-0.012); NRBC Pct Auto 0.0 /100WBC (0.0-0.2); Platelet Count 311 X10*3/uL (160-400); Red Blood Count 4.28 X10*6/uL (4.20-5.50); White Blood Count 8.4 X10*3/uL (4.8-10.8)
[2025-02-13 11:12] LABS: Anion Gap 12 (12-20); Blood Urea Nitrogen 20 mg/dL (9-16); Calcium 9.0 mg/dL (8.4-10.2); Carbon Dioxide 28 mmol/L (22-29); Chloride 104 mmol/L (96-108); Cholesterol 148 mg/dL (<200); Estimated Glomerular Filt Rate 59; HDL Cholesterol 65 mg/dL (>40); Potassium 4.1 mmol/L (3.3-5.1); Sodium 140 mmol/L (135-145); Triglycerides 115 mg/dL (<150)
== END 2025-02-13 08:14 | disposition home or self-care (01) ==
LOC: HO.HMGCLDS 08:13
PROVIDERS: PCP Physician Assistant; Visit Provider Physician Assistant
DX: I10 Essential (primary) hypertension (principal); E11.9 Type 2 diabetes mellitus without complications; E78.00 Pure hypercholesterolemia, unspecified
CPT/HCPCS: 36415; 80048; 80061; 83036; 85025

== ENCOUNTER 2025-02-20 10:13 | Outpatient (AMB) | payer MEDICARE, SELFPAY ==
--- OUTSIDE RECORDS SUMMARY | 2023-11-05 04:00 | XMS_ITS ---
Author Organization [facility] Address [address] [place] [address] Care Team Providers Care Head Stock Operator Name Role Phone Judy Jeffery Primary Care Provider UnavailAgustin Lang Unavailable [phone] Jeevan Jj Unavailable [phone] REASON FOR VISIT Painful nail(s) aggrevated by shoes and causing difficulty standing/walking. Medications Medication SIG (Take, Route, Frequency, Duration) Notes Start Date End Date Status Voltaren 1 % as directed Externally Active Encounters Encounter Location Date Provider Diagnosis [facility] [address] [place] [address] 11/05/2023 Jeevan Jj Tinea unguium B35.1 ; [...] Provider Name:Agustin Whiteside , 05/19/2025 09:15:00 AM, [address] [place] [address], [phone], Procedure Notes * Category Sub-Category Detail Notes [...] as necessary. Patient chooses, no pharmaceutical tx (18524) Keratoma Treatment Parring or Cutting o f Benign Hyperkeratotic Lesion(s) 07481 ( >4 Lesions) - The Benign hyperkeratotic lesions, as described above were pared, and/or cut utilizing a sterile #15 blade, tissue nippers, and/or dremel Progress Notes * Heide ROMERO ADOB:08/1950 (74 yo F)Acc No.[id number]:11/05/2023 Progress Note Patient: Sadia Heide VINSON Provider: Radha Armenta DPM :1950 A ge:73 Y S ex:Female Date:11/05/2023 Address:[address] [place] [address] larry Kim, [id number] Pcp:Judy Jeffery Subjective: * Chief Complaints: * [...] C ardiovascular: Pacemaker d enies, denies. M CLINICAL PHYSICIAN ASSISTANT d enies, denies.?WPW d enies, denies. C [...] as necessary. Patient chooses, no pharmaceutical tx (34644). K eratoma Treatment: Parring or Cutting of Benign Hyperkeratotic Lesion(s) 1 1057 ( >4 Lesions) - The Benign hyperkeratotic lesions, as described above were pared, and/or cut utilizing a sterile #15 blade, tissue nippers, and/or dremel. * Procedure Codes: 1 1721 DEBRIDE NAIL, 6 OR MORE, Modifiers: XS , 02114 TRIM SKIN LESIONS, OVER 4, Modifiers: XS * Follow Up: 4 Months * Images: * The named appointment provid er may or may not be the originator of this progress note, and it is not deemed complete until electronically signed by the appointment provider. Sign off status: Pending * Provider: Radha Armenta DPM Date: 0 11/05/2023 Generated for Jada pierce/Eula/Benji on: 04/22/2024 10:49 AM EST History and Physical Notes * [...]
--- OUTSIDE RECORDS SUMMARY | 2024-01-07 05:00 | XMS_ITS ---
Author Organization [facility] Address [address] [place] [address] Care Team Providers Care Solar Energy Sales Specialist Name Role Phone Judy Jeffery Primary Care Provider Agustin Lopez Unavailable [phone] Griselda Bazzi Unavailable [phone] Cotto Encounters Encounter Location Date Provider Diagnosis [address] [address] 01/07/2024 Griselda Bazzi Plan Of Treatment Next Appt Details Provider Name:Agustin Whiteside , 05/19/2025 09:15:00 AM, [address] [place] [address], [phone], Progress Notes * Heide ROMERO ADOB:08/1950 (74 yo F)Acc No.[id number]:01/07/2024 Progress Note Patient: Sadia LEWISVIRI Heide Ayon Provider: Yair Bazzi DPM :1950 A ge:73 Y S ex:Female Date:01/07/2024 Address:[address] [place] [address] Pcp:Judy Jeffery Subjective: * Chief Complaints: * [...] Date: 1 Generated for Jada pierce/Eula/Benji on: 04/22/2024 10:50 AM EST
--- OUTSIDE RECORDS SUMMARY | 2024-01-08 04:30 | XMS_ITS ---
Author Organization [facility] Address [address] [place] [address] Care Team Providers Care Solid Waste Division Supervisor Name Role Phone Judy Jeffery Primary Care Provider Agustin Lopez Unavailable [phone] Griselda Bazzi Unavailable [phone] Encounters Encounter Location Date Provider Diagnosis [address] [address] 01/08/2024 Griselda Bazzi Plan Of Treatment Next Appt Details Provider Name:Agustin Whiteside , 05/19/2025 09:15:00 AM, [address] [place] [address], [phone], Progress Notes * Heide ROMERO ADOB:08/1950 (74 yo F)Acc No.[id number]:01/08/2024 Progress Note Patient: Sadia KAREL Heide Ayon Provider: Yair Bazzi DPM :1950 A ge:73 Y S ex:Female Date:01/08/2024 Address:[address] [place] [phone] Pcp:Judy Jeffery Subjective: * Chief Complaints: * [...] 1 Generated for Jada pierce/Eula/Benji on: 1 04/22/2024 10:49 AM EST
--- OUTSIDE RECORDS SUMMARY | 2024-11-28 08:00 | XMS_ITS ---
Author Organization [facility] Address [address] [place] [address] Care Team Providers Care General Farmer Name Role Phone Judy Jeffery Primary Care Provider Unavailabl Agustin Benito Unavailable [phone] Encounters Encounter Location Date Provider Diagnosis [address] [address] 11/28/2024 Agustin Whiteside Plan Of Treatment Next Appt Details Provider Name:Agustin Whiteside , 05/19/2025 09:15:00 AM, [address] [place], [address], Progress Notes * Heide ROMERO ADOB:08/1950 (74 yo F)Acc No.[id number]:11/28/2024 Progress Note Patient: Sadia LEWISVIRI Heide Gabo Provider: Angelita Whiteside DPM :1950 A ge:74 Y S ex:Female Date:11/28/2024 Address:[address] [place] [address] Pcp:Judy Jeffery Subjective: * Chief Complaints: * * Medical History: Objective: * Vitals: Assessment: Plan: * Treatment: * Images: * The named appointment provid er may or may not be the originator of this progress note, and it is not deemed complete until electronically signed by the appointment provider. Sign off status: Pending * Provider: Angelita Whiteside DPM Date: 0 11/28/2024 Generated for Jada pierce/Eula/Benji on: 1 04/22/2024 10:49 AM EST
--- NOTE | 2025-02-20 07:44 | MHC.PC.OV ---
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 Required: No Accompanied by: Self / Same As Patient Allergies acetaminophen (From Tylenol) Allergy (Mild, Verified 12/16/24 14:00) Diarrhea Tobacco use date assessed: 02/20/25 Fall risk assessment: No Falls in past year Last assessed Fall Risk: 02/20/25 Dental Screening Dental Screen Date: 02/20/25 Did you have a dental visit in the last 12 months?: Yes Did you have a dental problem in the last 6 months where you did not have access to dental care?: No PFSH Medical History (Updated 12/03/24 @ 11:19 by Yashira Batres CNP) Anxiety and depression Hyperlipidemia Tension headache Osteoarthritis of right ankle Hx of head injury Arthritis Elevated cholesterol Anxiety CONCHITA on CPAP Diabetes HTN (hypertension) Surgical History Hx of bilateral cataract extraction Hx of colonoscopy (~07/22/21) Family History Father Diabetes Heart attack High blood pressure Mother Diabetes Social History Housing: House Alcohol intake: never Patient Tobacco Use Status: Never used Tobacco e-Cigarette/Vaping Use: Never Used service: No Current occupational status: retired Current occupation: rt handed Cognitive needs: Yes (cane) Hearing needs: No Vision needs: Yes (reading glasses) Female Reproductive History Menstrual Age of Menarche: 15 Questionnaire PHQ-9 Over the last 2 weeks, how often have you been bothered by any of the following problems? 1. Little interest or pleasure in doing things: not at all 2. Feeling down, depressed, or hopeless: not at all 3. Trouble falling or staying asleep, or sleeping too much: not at all 4. Feeling tired or having little energy: not at all 5. Poor appetite or overeating: not at all 6. Feeling bad about yourself - or that you are a failure or have let yourself or your family down: not at all 7. Trouble concentrating on things, such as reading the newspaper or watching television: not at all 8. Moving or speaking so slowly that other people could have noticed. Or the opposite - being so fidgety or restless that you have been moving around a lot more than usual: not at all 9. Thoughts that you would be better off or of hurting yourself in some way: not at all Total score: 0 Source: Developed by Drs. Omid Blankenship, Jasper Motley and colleagues, with an educational brian from [employer]. Thrive Questionnaire Date Thrive assessed: 02/20/25 I am a: Patient Within the past 12 months, did the food you bought not last and you didn't have the money to get more?: Never true Within the past 12 months, did you worry whether your food would run out before you got money to buy more?: Never true Do you have trouble paying for medicines?: No Do you have trouble getting transportation to medical appointments?: No Do you have trouble paying your heating and electricity bill?: No Do you have trouble taking care of your child, family member or friend?: No Do you have trouble with day-to-day activities such as bathing, preparing meals, shopping, managing finances, etc.?: No Are you currently unemployed and looking for a job?: No Are you interested in more education?: No THRIVE Score: 0 AUDIT C Alcohol Use Questionnaire (AUDIT-C) 1. How often do you have a drink containing alcohol?: Never 3. How often do you have six or more drinks on one occasion?: Never Total Score: 0 EARLINE-7 AMB Questionnaire EARLINE-7 Date EARLINE - 7 assessed: 02/20/25 Feeling nervous, anxious, or on edge: 0 = Not at all Not being able to stop or control worryin = Not at all Worrying too much about different things: 0 = Not at all Trouble relaxin = Not at all Being so restless that it is hard to sit still: 0 = Not at all Becoming easily annoyed or irritable: 0 = Not at all Feeling afraid as if something awful might happen: 0 = Not at all Total EARLINE-7 score (0-4 normal; 5-9 mild; 10-14 moderate; 15-21 severe): 0 Source: Developed by Drs. Omid Blankenship, Jasper Motley and colleagues, with an educational brian from [employer]. Physical exam (Primary Care) Tobacco/Smoking Status: Tobacco use Status Tobacco use date assessed 07/28/24 11/25/24 09:04 Patient Tobacco Use Status Never used Tobacco 11/25/24 09:04 e-Cigarette/Vaping Use Never Used 11/25/24 09:04 Thrive Assessment: Date of Thrive Assessment Date Thrive assessed 07/28/24 11/25/24 09:04 Coding
--- NOTE | 2025-02-20 10:07 | MHC.PC.OV ---
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: No Accompanied by: friend/sidekick-Donna Allergies acetaminophen (From Tylenol) Allergy (Mild, Verified 02/20/25 10:07) Diarrhea Medication List - Last Reconciled 02/20/25 by LAMONT White amlodipine 5 mg PO DAILY ammonium lactate 12% 1 appl topical BID aspirin 1 tab PO DAILY 90 days cholecalciferol (vitamin D3) 125 mcg PO DAILY 90 days citalopram 20 mg PO BID glipizide ER 5 mg PO BID hydrochlorothiazide 12.5 mg PO DAILY lisinopril 20 mg PO BID lorazepam mg PO metformin 1,000 mg (2 x 500 mg) PO BID miconazole nitrate 2% (Miconazole-7) 1 appful vaginal BEDTIME 7 days multivitamin with folic acid 400 mcg (Daily-Dusty (with folic acid)) 1 tab PO BID naproxen 250 mg PO BID PRN primidone 100 mg (2 x 50 mg) PO BID 90 days simvastatin 10 mg PO BEDTIME triamcinolone acetonide 0.1% 1 appl topical BID PRN Tobacco use date assessed: 07/28/24 Dental Screening Dental Screen Date: 07/28/24 HPI HPI Comments History of Present Illness Details Patient with history of type 2 diabetes, htn, osteoarthritis, thyroid nodule and CONCHITA presents to the office for routine followup accompanied by her friend for follow-up Anxiety- much improved since increase in citalopram, now at 30 mg daily but is interested in increasing to 40 mg daily she does still get tremulous related to her anxiety. Lorazepam PRN prior to dental cleanings. Overall, symptoms much improved. HTN- controlled on amlodipine 5 mg daily lisinopril 20 mg BID and HCTZ. BPs good at home. Controlled in office today at 138/50 Type 2 DM- last A1c 7.7%. Did just receive cortisone injection several weeks ago. On metformin and glipizide. Eye exams UTD. Has been working on improving diabetic diet. Fasting glucose levels typically in the 130s-140s Thyroid nodule-last ultrasound 07/2023 showing 3.9 cm right upper lobe nodule with follow-up aspiration showing benign etiology. Denies any compressive symptoms. CONCHITA-compliant with CPAP Osteoarthritis-bilateral ankles and knees. Following with [facility]. Received cortisone injection with limited improvement. Was given a ?compounded topical medication?. Cautious about NSAIDs due to CKD stage 3. She is not interested in TKA CKD stage 3- overall stable. Avoiding nephrotoxins Eczema- much improved with triamcinolone Concerns: As above ROS: See HPI EXAM: Constitutional - Awake and Alert, No apparent distress Eyes - PERRL Neck-no lymphadenopathy. Unable to palpate any thyroid nodules, prominent sternocleidomastoid muscle which could be masking thyroid nodule Ears-external ears normal, canals clear, TMs pearly hicks and intact Cardiovascular - S1S2, RRR, No edema Respiratory - Normal lung expansion, Normal respiratory effort, No respiratory distress, CTA bilaterally Extremities - no calf tenderness bilaterally, no swelling Skin - Warm/Dry. Dry scaling rash on the palmar aspect of the hands bilaterally Neurological - Alert & oriented x3 Psychological - Appropriate affect [facility] History (Updated 02/20/25 @ 10:48 by LAMONT White) Thyroid nodule Anxiety and depression Hyperlipidemia Tension headache Osteoarthritis of right ankle Hx of head injury Arthritis Elevated cholesterol Anxiety CONCHITA on CPAP Diabetes HTN (hypertension) Surgical History Hx of bilateral cataract extraction Hx of colonoscopy (~07/22/21) Family History Father Diabetes Heart attack High blood pressure Mother Diabetes Social History Housing: House Alcohol intake: never Patient Tobacco Use Status: Never used Tobacco e-Cigarette/Vaping Use: Never Used service: No Current occupational status: retired Current occupation: rt handed Cognitive needs: Yes (cane) Hearing needs: No Vision needs: Yes (reading glasses) Female Reproductive History Menstrual Age of Menarche: 15 Questionnaire Thrive Questionnaire Date Thrive assessed: 07/28/24 EARLINE-7 AMB Questionnaire EARLINE-7 Date EARLINE - 7 assessed: 07/28/24 Source: Developed by Drs. Omid Blankenship, Tabitha De, Jasper Longoria and colleagues, with an educational brian from [email or web address]. Physical exam (Primary Care) Vital Signs: Last Vital Signs Temp 97.9 F 02/20/25 10:23 Pulse 71 02/20/25 10:23 Resp 20 02/20/25 10:23 BP 138/50 L 02/20/25 10:23 Pulse Ox 98 02/20/25 10:23 Oxygen Delivery Method Room Air 02/20/25 10:23 BMI result Body Mass Index 39.9 Tobacco/Smoking Status: Tobacco use Status Tobacco use date assessed 07/28/24 02/20/25 10:07 Patient Tobacco Use Status Never used Tobacco 02/20/25 10:07 e-Cigarette/Vaping Use Never Used 02/20/25 10:07 Thrive Assessment: Date of Thrive Assessment Date Thrive assessed 07/28/24 02/20/25 10:07 Coding Level of Care Code Complex visit Add On G2211 Diagnoses HTN (hypertension) I10 Elevated cholesterol E78.00 Diabetes E11.9 Rash R21 Anxiety F41.9 Thyroid nodule E04.1 Assessment & Plan Assessment & Plan (1) HTN (hypertension): Code(s): I10 - Essential (primary) hypertension Category: Medical Plan: Controlled on recheck. Continue current therapies (2) Elevated cholesterol: Code(s): E78.00 - Pure hypercholesterolemia, unspecified Category: Medical Plan: Controlled. Continue simvastatin (3) Diabetes: Code(s): E11.9 - Type 2 diabetes mellitus without complications Category: Medical Plan: Controlled stable, controlled considering age. However, did discuss the importance of improving diabetic diet and compliance with medications to prevent worsening of control which would put her at risk for complications. Continue with annual eye exams. Due for microalbuminuria screen (4) Rash: Code(s): R21 - Rash and other nonspecific skin eruption Category: Medical Plan: Stable. Continue triamcinolone (5) Anxiety: Code(s): F41.9 - Anxiety disorder, unspecified Category: Medical Plan: Much improved but still with occasional anxiety. Increase citalopram to 20 mg twice daily. Continue with positive coping mechanisms. (6) Thyroid nodule: Code(s): E04.1 - Nontoxic single thyroid nodule Category: Medical Plan: Given size of thyroid nodule, repeat thyroid ultrasound. Plan Follow-up in the office in 3 months with labs completed following visit. Labs to be completed prior to next visit Orders: Orders Basic Metabolic Panel 3 Months E04.1 - Nontoxic single thyroid nodule, E11.9 - Type 2 diabetes mellitus without complications, I10 - Essential (primary) hypertension Hemoglobin A1c 3 Months E04.1 - Nontoxic single thyroid nodule, E11.9 - Type 2 diabetes mellitus without complications, I10 - Essential (primary) hypertension TSH reflex Free T4 3 Months E04.1 - Nontoxic single thyroid nodule US thyroid Today E04.1 - Nontoxic single thyroid nodule Microalbumin, Random (w Creat) 3 Months E11.9 - Type 2 diabetes mellitus without complications Medications: New citalopram 20 mg PO BID 180 tabs 1RF Changed From lorazepam PO To lorazepam Take 1 tab prior to dental visits, repeat if needed if no improvement after 15 minutes 6 tabs 0RF Refilled triamcinolone acetonide 0.1% 1 appl topical BID PRN 30 grams 3RF rash Discontinued citalopram Discontinued Reason: Doctor's Order 30 mg (1.5 x 20 mg) PO DAILY 135 tabs 1RF
[2025-02-20 10:23] VITALS: BP 138/50; PULSE 71; RESP 20; TEMP 36.6; O2SAT 98; BMI 39.9
--- OUTSIDE RECORDS SUMMARY | 2025-02-20 10:50 | XMS_ITS | Patient Health Record ---
Author Organization [facility] Address [address] [place] [address] Care Team Providers Care Lard Renderer Name Role Phone JANET CORONADO Primary Care Provider Omid Rogers Unavailable [phone] Allergies Allergen (clinical drug ingredient) Drug/Non Drug Allergy documented on EMR Reaction Allergy Type Onset Date Status acetaminophen Acetaminophen Unknown Drug Allergy Active Reason For Referral No Information Medications Medication SIG (Take, Route, Frequency, Duration) Notes Start Date End Date Status amLODIPine Besylate 5 MG Tablet TAKE 1 T ABLET DAILY Oral; Duration: 90 Days Active Citalopram Hydrobromide 10 M G Tablet 1 tablet Orally Once a day; Duration: 30 day(s) Active Citalopram Hydrobromide 20 M G Tablet TAKE 1 TABLET DAILY Oral; Duration: 90 Days Active Primidone 50 MG Tablet TAKE 1 TABLET 3 T IMES A DAY Oral; Duration: 90 Days Active metFORMIN HCl 500 MG Tablet TAKE 2 TABLE TS TWICE A DAY Oral; Duration: 90 Days Active Fluconazole 150 MG Tablet Oral; Duration : 6 Days Active Citalopram Hydrobromide 10 M G Tablet TAKE 1 TABLET ONCE DAILY Oral; Duration: 90 Days Active Cranberry 425 MG Capsule as directed Orally Active amLODIPine Besylate 2.5 MG Tablet TAKE 1 TABLET ONCE DAILY Oral; Duration: 90 Days Active Ammonium Lactate 12 % Cream External; Du ration: 30 Days Active amLODIPine Besylate 2.5 MG Tablet 1 tablet Orally Once a day Active hydroCHLOROthiazide 12.5 MG Capsule Oral; Duration: 90 Days Active Sertraline HCl 25 MG Tablet TAKE 1 TABLE T ONCE DAILY Oral; Duration: 90 Days Active Citalopram & Diet Manage Prod Active Naproxen 250 MG Tablet TAKE 1 TABLET TWI CE A DAY NEEDED FOR PAIN Oral; Duration: 30 Days Active Multivitamin - Tablet 1 tablet Orally On ce a day; Duration: 30 day(s) Active glipiZIDE ER 5 MG Tablet Extended Release 24 Hour TAKE 1 TABLET TWICE A DAY Oral; Duration: 90 Days Active metFORMIN HCl 500 MG Tablet 1 tablet wit h a meal Orally twice a day Active Lisinopril 20 MG Tablet TAKE 1 TABLET 2 TIMES DAILYAS DIRECTED Oral; Duration: 90 Days Active Simvastatin 10 MG Tablet 1 tablet in the evening Orally Once a day; Duration: 30 day(s) Active Meclizine HCl 25 MG Tablet Oral; Duratio n: 7 Days Active Adelso Aspirin EC Low Dose 81 MG Tablet Delayed Release 1 tablet Orally Once a day; Duration: 30 day(s) Active Cefuroxime Axetil 500 MG Tablet TAKE 1 T ABLET 2 TIMES DAILYFOR 7 DAYS Oral; Duration: 7 Days Active Lisinopril 20 MG Tablet 1 tablet Orally twice a day Active Immunizations Vaccine Route Administration Date Status Comme nts Influenza Unknown 01/30/2018 Administered Influenza Unknown 12/31/2020 Administered Influenza Unknown 01/15/2024 Administered Social History Tobacco Use: Social History Observation Description Date Details (start date - stop date) Never Smoker NA - NA Social History Drugs/Alcohol: Social Info Question Answer Notes Alcohol Screen Did you have a drink containing alcohol in the past year? No Points 0 Interpretation Negative Tobacco Use: Social Info Question Answer Notes Tobacco Use/Smoking Patient is a nonsmoker Additional Details Category Social Info Options Details Miscellaneous: Marital status: single Occupation: [employer]/retired Section Notes: Nonsmoker; no sig alcohol Nonsmoker; no sig alcohol Nonsmoker; no sig alcohol Problems Problem Type SNOMED Code ICD Code Onset Dates Problem Status W/U Status Risk Notes Problem Screening for malignant neoplasm of colon (714862568) Encounter for screening for malignant neoplasm of colon (Z12.11) Active confirmed Problem History of adenomatous polyp of colon (957400115) History of adenomatous polyp of colon (Z86.010) Active confirmed Problem Preprocedural examination (450164636353824) Preprocedural examination (Z01.818) Active confirmed Problem Long-term current use of antiplatelet drug (302715567941746) Long-term use of aspirin therapy (Z79.82) Active confirmed Problem Diverticulosis of colon (387786030) Diverticulosis of colon (K57.30) Active confirmed Vital Signs Temperature 97.1 degrees Fahrenheit 10/23/2024 Blood pressure diastolic 01 mm Hg 10/23/2024 Height 68 in 10/23/2024 Blood pressure systolic 001 mm Hg 10/23/2024 Weight 273.4 lbs 10/23/2024 BMI 41.57 kg/m2 10/23/2024 Encounters Encounter Location Date Provider Diagnosis [facility] [address] [place] [address] 10/23/2024 Omid Green History of adenomato us polyp of colon Z86.010 ; Preprocedural examination Z01.818 and Encounter for screening for malignant neoplasm of colon Z12.11 Assessments Encounter Date Diagnosis (ICD Code) Assessment Notes Treatment Notes Treatment Clinical Notes Section Notes 10/23/2024 History of adenomatous polyp of colon (ICD-10 - Z86.010) Overall, Ryne appears well from a GI standpoint and [...] change in bowel habits or rectal bleeding. Ryne and her friend were comfortable with this plan. Thank you again for allowing me to have participated in Ryne's care. Please do not hesitate to contact me if I can be of any further assistance in the future. 10/23/2024 Preprocedural examination (ICD-10 - Z01.818) Overall, Ryne appears well from a GI standpoint and [...] change in bowel habits or rectal bleeding. Ryne and her friend were comfortable with this plan. Thank you again for allowing me to have participated in Ryne's care. Please do not hesitate to contact me if I can be of any further assistance in the future. 10/23/2024 Encounter for screening for malignant neoplasm of colon (ICD-10 - Z12.11) Repeat colonoscopy in 07/2026 Overall, Ryne appears well from a GI standpoint and [...] change in bowel habits or rectal bleeding. Ryne and her friend were comfortable with this plan. Thank you again for allowing me to have participated in Ryne's care. Please do not hesitate to contact me if I can be of any further assistance in the future. Plan Of Treatment Future Test Test Name Order Date COLONOSCOPY 12/18/2018 COLONOSCOPY 03/17/2021 Insurance Providers Payer Name Payer Address Payer Phone Subscriber Number Group Number Insured Name Patient Relationship to Insured Coverage Start Date Coverage End Date MEDICARE OF [place] [address] [place] [address] [id number] RYNE AMBRIZ Self - patient is the insured [employer] ATT[employer] CLAIMS [address] [place] [address] [phone] [id number] RYNE AMBRIZ Self - patient is the insured Medical (General) History Medical History History ICD Code Denies [place],CVA,Lung disease,renal disease Sleep apnea-uses CPAP NIDDM UTI HTN Anxiety Hyperlipidemia Colonoscopy in 2003 with a s mall tubular adenoma removed; neg. colonoscopy in 2010 Cortisone injection in knee left Essential tremors Nodules on thyroid- -biopsies were OK Colonoscopy 2021 with a small tubular ad enoma Surgical History Surgery Date(Month/Year) Cataract-lens implants- left eye
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
== END 2025-02-20 11:07 | disposition home or self-care (01) ==
LOC: HO.HMCHD 10:13
PROVIDERS: PCP Internal Medicine; Visit Provider Physician Assistant
DX: I10 Essential (primary) hypertension (principal); E78.00 Pure hypercholesterolemia, unspecified; E11.9 Type 2 diabetes mellitus without complications; R21 Rash and other nonspecific skin eruption; F41.9 Anxiety disorder, unspecified; E04.1 Nontoxic single thyroid nodule

== ENCOUNTER → 2025-02-20 10:13 | Outpatient (BNVA) | payer MEDICARE, SELFPAY | PROVIDERS: PCP Internal Medicine; Visit Provider Physician Assistant | DX: I10 Essential (primary) hypertension (principal); E78.00 Pure hypercholesterolemia, unspecified; E11.9 Type 2 diabetes mellitus without complications; R21 Rash and other nonspecific skin eruption; F41.9 Anxiety disorder, unspecified; E04.1 Nontoxic single thyroid nodule; Z79.84 Long term (current) use of oral hypoglycemic drugs | CPT/HCPCS: 99212 ==

== ENCOUNTER 2025-03-09 10:57 | Outpatient (AMB) | payer MEDICARE, SELFPAY ==
[2025-03-09 11:03] VITALS: BP 148/67; PULSE 76; O2SAT 98; BMI 41.0
--- NOTE | 2025-03-09 11:03 | A.OFFVIS_ITS ---
Vital Signs 03/09/25 11:03 Height 5 ft 8 in Weight 270 lb BMI 41.0 BP 148/67 H Blood Pressure Location Rt brachial Position Sitting Pulse 76 Pulse Source Pulse Oximeter Pulse Oximetry (%) 98 Oxygen Delivery Method Room Air Intake Visit Reasons: Shortness of Breath/Sleep Apnea Allergies acetaminophen (From Tylenol) Allergy (Mild, Verified 03/09/25 11:07) Diarrhea HPI HPI Shortness of Breath/Sleep Apnea: Details: 74-year-old lady, lifetime nonsmoker, with no prior personal or family history of lung disease referred for evaluation of dyspnea on exertion. Patient states that she initially started to feel it in June of 2023 when walking treadmill. Her symptoms slowly progress to a point that approximately 2-3 months prior she started having difficulties going to her mailbox, needing to take a break in between. She denies any cough, wheezing, sputum production. She denies chest pain or orthopnea. Patient does have underlying diagnosis of obstructive sleep apnea that is managed by sleep medicine provider in [place]. Patient has been employed with no exposure to industrial dusts. 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 Her pulmonary function test is essentially normal. After the last office visit patient continue essentially the same with intermittent dyspnea with exertion. She started to follow-up with cardiology for underlying mild valvulopathy. [facility] Medical History (Updated 02/20/25 @ 10:48 by LAMONT White) Thyroid nodule Anxiety and depression Hyperlipidemia Tension headache Osteoarthritis of right ankle Hx of head injury Arthritis Elevated cholesterol Anxiety CONCHITA on CPAP Diabetes HTN (hypertension) Surgical History Hx of bilateral cataract extraction Hx of colonoscopy (~07/22/21) Family History Father Diabetes Heart attack High blood pressure Mother Diabetes Social History Housing: House Alcohol intake: never Patient Tobacco Use Status: Never used Tobacco e-Cigarette/Vaping Use: Never Used service: No Current occupational status: retired Current occupation: rt handed Cognitive needs: Yes (cane) Hearing needs: No Vision needs: Yes (reading glasses) Female Reproductive History Menstrual Age of Menarche: 15 Review of Systems Const Denies daytime sleepiness, Denies excessive sweating, Denies fatigue, Denies fever(s), Denies lethargy, Denies malaise, Denies night sweats, Denies snoring and Denies weight loss Eyes Denies blurry vision and Denies itchy eyes ENT Denies nasal congestion, Denies post nasal drip, Denies sinus pain, Denies sinus pressure and Denies other ( Thrush) Card Denies chest pain, Denies pedal edema, Denies dyspnea, Denies orthopnea and Denies paroxysmal nocturnal dyspnea Resp Denies cough, Denies hemoptysis, Denies excessive phlegm production, Denies dyspnea, Denies snoring and Denies wheezing GI Denies abdominal pain and Denies heartburn Musc Denies myalgias, Denies arthralgias and Denies joint swelling Skin/Breast Denies rash Neuro Denies memory loss and Denies seizure-like activity Psych Denies abnormal sleep pattern, Denies anxiety and Denies memory loss Endo Denies excessive sweating, Denies fatigue and Denies heat intolerance Cornell/Lymph Denies easy bruising Aller/Immun Denies itchy eyes, Denies seasonal rhinorrhea and Denies wheezing Physical Exam Vital Signs: Last Vital Signs Pulse 76 03/09/25 11:03 BP 148/67 H 03/09/25 11:03 Pulse Ox 98 03/09/25 11:03 Oxygen Delivery Method Room Air 03/09/25 11:03 BMI result Body Mass Index 41.0 Const General: no acute distress and alert Nutritional Appearance: obese Orientation/consciousness: Other orientation findings ( oriented) HEENT Head: Yes atraumatic Eyes General: appearance normal, both eyes and all related structures Sclerae: sclerae normal EOM: EOMs intact bilaterally Neck Neck: Yes supple Lymphatic: no lymphadenopathy noted Resp Effort & Inspection: normal respiratory effort and no use of accessory muscles Auscultation: clear to auscultation bilaterally Cardio Rate: regular rate Rhythm: regular rhythm Heart sounds: no gallops, no murmurs and no rubs Skin General skin exam: other ( warm) Extrem General: No clubbing, No cyanosis and No edema Assessment & Plan Assessment & Plan (1) Dyspnea on exertion: Code(s): R06.09 - Other forms of dyspnea Category: Medical Plan: No pulmonary component at this time. Patient continues to follow-up with cardiology. Coding Level of Care Code Est Pt Level 3 (98310) Diagnoses Dyspnea on exertion R06.09
== END 2025-03-09 11:42 | disposition home or self-care (01) ==
LOC: HO.HPS 10:58
PROVIDERS: PCP Internal Medicine; Visit Provider Internal Medicine Pulmonary Disease
DX: R06.09 Other forms of dyspnea (principal)
CPT/HCPCS: 99213

== ENCOUNTER → 2025-03-09 10:57 | Outpatient (BNVA) | payer MEDICARE, SELFPAY | PROVIDERS: PCP Internal Medicine; Visit Provider Internal Medicine Pulmonary Disease | DX: R06.09 Other forms of dyspnea (principal) | CPT/HCPCS: 99212 ==

== ENCOUNTER 2025-03-17 09:51 | Outpatient (AMB) | payer MEDICARE, SELFPAY ==
--- OUTSIDE RECORDS SUMMARY | 2023-11-05 04:00 | XMS_ITS ---
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 Medications Medication SIG (Take, Route, Frequency, Duration) Notes Start Date End Date Status Voltaren 1 % as directed Externally Active Encounters Encounter Location Date Provider Diagnosis [facility] [address] [place] [address] 11/05/2023 Jeevan Jj Tinea unguium B35.1 ; Pain in right toe(s) M79.674 ; Type 2 diabetes mellitus with diabetic polyneuropathy E11.42 ; Pain in left toe(s) M79.675 ; Other hammer toe(s) (acquired), left foot M20.42 ; Other hammer toe(s) (acquired), right foot M20.41 ; Primary osteoarthritis, left ankle and foot M19.072 ; Xerosis cutis L85.3 ; Ataxic gait R26.0 and Hallux valgus (acquired), right foot M20.11 Assessments Encounter Date Diagnosis (ICD Code) Assessment Notes Treatment Notes Treatment Clinical Notes Section Notes 11/05/2023 Tinea unguium (ICD-10 - B35.1) 11/05/2023 Pain in right toe(s) (ICD-10 - M79.674) 11/05/2023 Type 2 diabetes mellitus with diabetic polyneuropathy (ICD-10 - E11.42) 11/05/2023 Pain in left toe(s) (ICD-10 - M79.675) 11/05/2023 Other hammer toe(s) (acquired), left foot (ICD-10 - M20.42) 11/05/2023 Other hammer toe(s) (acquired), right foot (ICD-10 - M20.41) 11/05/2023 Primary osteoarthritis, left ankle and foot (ICD-10 - M19.072) 11/05/2023 Xerosis cutis (ICD-10 - L85.3) 11/05/2023 Ataxic gait (ICD-10 - R26.0) 11/05/2023 Hallux valgus (acquired), right foot (ICD-10 - M20.11) Plan Of Treatment Medication Medication Name Sig Start Date Stop Date Notes Voltaren 1 % as directed Externally Next Appt Details Follow Up: 4 Months, Reason: Provider Name:Agustin Whiteside , 05/19/2025 09:15:00 AM, [address] [place] [address], [phone], Procedure Notes * Category Sub-Category Detail Notes Debride Nail 6-10 Nail debridement Nail debridem ent performed extensively to reduce/remove overall nail length and girth, subungual debris, and necrotic tissue, by manual and electrical means with use of a nail nipper and/or dremel, to more viable healthy nail plate or bed tissue 6-10. Silver nitrate used for any petechial bleeding as necessary. Patient chooses, no pharmaceutical tx (99891) Keratoma Treatment Parring or Cutting o f Benign Hyperkeratotic Lesion(s) 12246 ( >4 Lesions) - The Benign hyperkeratotic lesions, as described above were pared, and/or cut utilizing a sterile #15 blade, tissue nippers, and/or dremel Progress Notes * Heide ROMERO ADOB:08/1950 (74 yo F)Acc No.[id number]:11/05/2023 Progress Note Patient: Sadia Heide VINSON Provider: Radha Armenta DPM :1950 A ge:73 Y S ex:Female Date:11/05/2023 Address:[address] [address] [place], [id number] Pcp:Judy Jeffery Subjective: * Chief Complaints: * 1 . Painful nail(s) aggrevated by shoes and causing difficulty standing/walking.. * HPI: F oot Pain: Nature: a bahman a nd feels like giving out . Location I nside, Left ankle. Duration: s everal years. Onset/Cause: u nknown. Course: i ntermittent , improved. Aggrevated: n o pattern. Treatments: c hange in shoes, occasional use of cane. Quality/Severity m oderate. P ainful Nails: Pt States Last PCP Visit: D ate: 0 06/15/2023 Misc: p t also requesting one of her old orthoses be sent back to be refurbished--she feels taking up too much room for both feet--then we I had her try them on today--she said they felt fine; pt to call in future if she needs thinner extension with leather topcover. T oe pain: Nature: a bahman, tenderness. Location: O utside, Great toe, Right foot. Duration: s everal months. Onset/Cause: p t dropped wood on it this past winter. Course: i ntermittent. Treatments: c hange in shoes. Severity/Quality: m oderate. * ROS: G eneral/Constitutional: Nausea d enies, denies. V omiting d enies, denies.?Hunger Thirst d enies, denies. L oss appetite d enies, denies. C hills d enies, denies. F atigue d enies, denies. F ever d enies, denies. N ight Sweats denies, denies. U nexplained weight loss d enies, denies. U nexplained weight gain?denies, denies. H EENTM: Dentures d enies, denies. D izziness d enies, denies. G lasses/contacts a dmits, admits. R etinopathy d enies, denies. B lurred/double vision d enies, denies. T MJ d enies, denies. D ischarge/drainage d enies, denies. I mplants d enies, denies. S ore throat d enies, denies. D ental implants?denies, denies. H lulú of hearing d enies, denies. D ifficulty chewing/swallowing/speaking d enies, denies. N ose bleeds d enies, denies. S ore mouth d enies, denies. R espiratory: On Oxygen d enies, denies. P neumonia/pleurisy d enies, denies. B ronchitis d enies, denies. E mphysema d enies, denies. C oughing?denies, denies. C ough blood d enies, denies. S hortness of breath d enies, denies. W heezing d enies, denies. C ardiovascular: Pacemaker d enies, denies. M LEVELER d enies, denies.?WPW d enies, denies. C HF d enies, denies. H eart attack d enies, denies.?Septal defect d enies, denies. R apid beat d enies, denies. C hest pain d enies, denies. A trial Fib. d enies, denies. M urmur/Palpitations d enies, denies. G astrointestinal: Hemorrhoids d enies, denies. S tomach/Abdominal pain?denies, denies. D ark blood stool d enies, denies. I rritable bowel d enies, denies. C onstipation d enies, denies. D iarrhea d enies, denies. H ematology: Swelling d enies, denies. C lots d enies, denies.?Varicose Veins d enies, denies. B ruising d enies, denies. B leeding problem?denies, denies. G enitourinary: Blood urine d enies, denies. F requent/Painfu/urination/bladder control d enies, denies. K idney stones d enies, denies. I nfection (UTI)?denies, denies. N ephropathy d enies, denies. s ex trans dis (STD) d enies, denies. P rostate d enies, denies. M usculoskeletal: Hammertoes a dmits, admits. B unions d enies, denies. B ack Pain d enies, denies. M uscle Cramps/ Resting d enies, denies. M uscle cramps / walking d enies, denies. G eneralized aches and pains d enies, denies. W eakness d enies, denies. I nteg.: Pool d enies, denies. S cars d enies, denies. C orns/calluses d enies, denies. I ngrown nails d enies, denies. P ainful nails d enies, denies. O pen Sores d enies, denies. R ashes d enies, denies. ? N eurologic: Difficulty sleeping d enies, denies. B rain disorder?denies, denies. N umbness d enies, denies. B alance trouble d enies, denies. C onfusion d enies, denies. F ainting/blackouts d enies, denies. T ingling d enies, denies. T remors d enies, denies. P atient has a scratch on her left eye. Patient has a scratch on her left eye. * Medical History: Objective: * Vitals: * Examination: O phthalmology Referral: DIABETES EYE EXAM D iabetic Retinopathy Screening: N o F indings of Diabetic Eye Exam: n o retinopathy N eurological: SENSORY: Neurological exam demonstrates, 5.07 monofilament test performed at plantar aspects of 5 varied sites per foot shows sensation, absent, B/L, Neurological exam demonstrates pop medial right first mtpj. TINEL'S COMPRESSION: n egative tarsal tunnel, viviana pedis, and medial calcaneal nerves b/l. BABINSKI REFLEX: a bsent. D ermatologic: SKIN FINDINGS: Skin exam reveals keratotic lesion(s) located at, Medial plantar, TA, T5, SUB 5th MTBase, B/L , Heel, B/L , T2. O rthopedic: MUSCLE STRENGTH: 5 /5 all groups in a symmetrical fashion, B/L. GAIT ABNORMALITY: p ronated, abducted, b/l. BUNION: Medially prominent 1st MPJ, (+) Pain on palpation, LEFT, Lateral tracking 1st MPJ incompletely reducable. DIGITAL DEFORMITIES: Digital contracture, PIPJ, 2-5 B/L, incompl-reducable to push-up test, no over, nor underlapping. FOOTWEAR EVALUATION: worn, nonsupportive. ? G eneral Examination: GENERAL APPEARANCE: a lert, well hydrated, in no distress , good attention to hygiene. ORIENTED: p erson,place, and time. FOOT EXAM: L ower Extremity Neurological Exam performed:?Yes V isual exam of foot performed: Y es D ate 0 08/21/2022 S ensory testing performed: s ensations diminished P edal pulse taking performed: 1 + V ascular: DP PULSES (B): 1 /4, B/L. PT PULSES (B): 1 /4, B/L. CAPILLARY FILL TIME: 3 secs. per digit, b/l. TROPHIC CONDITION-TEXTURE/ELASTICITY/TURGOR/HAIR GROWTH (B):?absent. TEMPERTURE GRADIENT (C): w arm to cool, proximal to distal.? EDEMA (C): n o edema. ELEV. PALOR: a bsent. CLAUDICATION (C): n egative, b/l . REST PAIN: n egative. TELANGECTASIA: a bsent. VARICOSITIES: a bsent. BUSHRA'S SIGN: a bsent, b/l. PALPABLE CORDS: a bsent, b/l. CLUBBING: a bsent. N ails: NAILS are: e longated, overgrown, dystrophic, greater than 3mm thick, discolored and friable with crumbly malodorous subungual debris, with pain on palpation, with dull pain on palpation due to neuropathy, 1-5 B/L. Assessment: * Assessment: 1. T inea unguium - B35.1 (Primary) 2 . P ain in right toe(s) - M79.674? 3. T ype 2 diabetes mellitus with diabetic polyneuropathy - E11.42 ?4. P ain in left toe(s) - M79.675 5 . O ther hammer toe(s) (acquired), left foot - M20.42 6 . O ther hammer toe(s) (acquired), right foot - M20.41 ? 7 . P rimary osteoarthritis, left ankle and foot - M19.072 8 . X erosis cutis - L85.3 9 . A taxic gait - R26.0 1 0. H allux valgus (acquired), right foot - M20.11 Plan: * Treatment: * Procedures: D ebride Nail 6-10: Nail debridement N ail debridement performed extensively to reduce/remove overall nail length and girth, subungual debris, and necrotic tissue, by manual and electrical means with use of a nail nipper and/or dremel, to more viable healthy nail plate or bed tissue 6-10. Silver nitrate used for any petechial bleeding as necessary. Patient chooses, no pharmaceutical tx (28153). K eratoma Treatment: Parring or Cutting of Benign Hyperkeratotic Lesion(s) 1 1057 ( >4 Lesions) - The Benign hyperkeratotic lesions, as described above were pared, and/or cut utilizing a sterile #15 blade, tissue nippers, and/or dremel. * Procedure Codes: 1 1721 DEBRIDE NAIL, 6 OR MORE, Modifiers: XS , 68415 TRIM SKIN LESIONS, OVER 4, Modifiers: XS * Follow Up: 4 Months * Images: * The named appointment provid er may or may not be the originator of this progress note, and it is not deemed complete until electronically signed by the appointment provider. Sign off status: Pending * Provider: Radha Armenta DPM Date: 0 11/05/2023 Generated for Jada pierce/Eula/Benji on: 05/18/2024 11:50 AM EST History and Physical Notes * HPI (History of Present Illness) Category Sub-Category Detail Notes Category Not es Toe pain Nature: aching, tenderness Location: Outside, Great toe, Right foot Duration: several months Onset/Cause: pt dropped wood on i t this past winter Course: intermittent Treatments: change in shoes Severity/Quality: moderate Painful Nails Misc: pt also requesting one of her old orthoses be sent back to be refurbished--she feels taking up too much room for both feet--then we I had her try them on today--she said they felt fine; pt to call in future if she needs thinner extension with leather topcover Pt States Last PCP Visit: Date:: 06/15/2023 Foot Pain Aggrevated: no pattern Onset/Cause: unknown Course: intermittent , impro suraj Duration: several years Nature: aching and feels lik e giving out Treatments: change in shoes, occ asional use of cane Quality/Severity moderate Location Inside, Left ankle Examination Category Sub-Category Detail Notes Category Not es Neurological SENSORY: Neurological exa m demonstrates, 5.07 monofilament test performed at plantar aspects of 5 varied sites per foot shows sensation, absent, B/L, Neurological exam demonstrates pop medial right first mtpj BABINSKI REFLEX: absent TINEL'S COMPRESSION: negative tarsal ivonne adolfo, viviana pedis, and medial calcaneal nerves b/l Dermatologic SKIN FINDINGS: Skin exam reveal s keratotic lesion(s) located at, Medial plantar, TA, T5, SUB 5th MTBase, B/L , Heel, B/L , T2 Orthopedic GAIT ABNORMALITY: pronated, abducted, b/l BUNION: Medially prominent 1 st MPJ, (+) Pain on palpation, LEFT, Lateral tracking 1st MPJ incompletely reducable FOOTWEAR EVALUATION: worn, nonsupportive DIGITAL DEFORMITIES: Digital contracture , PIPJ, 2-5 B/L, incompl-reducable to push-up test, no over, nor underlapping MUSCLE STRENGTH: 5/5 all groups in a symmetrical fashion, B/L General Examination GENERAL APPEARANCE: alert, w ell hydrated, in no distress , good attention to hygiene FOOT EXAM: Lower Extremity Neurological Exa m performed:: Yes Visual exam of foot performed:: Yes Date: 08/21/2022 Sensory testing performed:: sensations d iminished Pedal pulse taking performed:: 1+ ORIENTED: person,place, and ti me Ophthalmology Referral DIABETES EYE EXAM Diabetic Retinopa thy Screening:: No Findings of Diabetic Eye Exam:: no retin opathy Vascular DP PULSES (B): 1/4, B/L PT PULSES (B): 1/4, B/L CAPILLARY FILL TIME: 3 secs. per digit, b/l TEMPERTURE GRADIENT (C): warm to cool, p roximal to distal TROPHIC CONDITION-TEXTURE/EL ASTICITY/TURGOR/HAIR GROWTH (B): absent EDEMA (C): no edema TELANGECTASIA: absent VARICOSITIES: absent ELEV. PALOR: absent CLUBBING: absent CLAUDICATION (C): negative, b/l REST PAIN: negative BUSHRA'S SIGN: absent, b/l PALPABLE CORDS: absent, b/l Nails NAILS are: elongated, overg rown, dystrophic, greater than 3mm thick, discolored and friable with crumbly malodorous subungual debris, with pain on palpation, with dull pain on palpation due to neuropathy, 1-5 B/L
--- OUTSIDE RECORDS SUMMARY | 2024-01-07 05:00 | XMS_ITS ---
Author Organization [facility] Address [address] [place] [address] Care Team Providers Care Processing Specialist Name Role Phone Judy Jeffery Primary Care Provider Agustin Lopez Unavailable [phone] Griselda Bazzi Unavailable [phone] Cotto Encounters Encounter Location Date Provider Diagnosis [address] [address] 01/07/2024 Griselda Bazzi Plan Of Treatment Next Appt Details Provider Name:Agustin Whiteside , 05/19/2025 09:15:00 AM, [address] [place] [address], [phone], Progress Notes * Heide ROMERO ADOB:08/1950 (74 yo F)Acc No.[id number]:01/07/2024 Progress Note Patient: Sadia LEWISVIRI Heide Ayon Provider: Yair Bazzi DPM :1950 A ge:73 Y S ex:Female Date:01/07/2024 Address:[address] [place] [phone] Pcp:Judy Jeffery Subjective: * Chief Complaints: * [address] Cotto. * Medical History: Objective: * Vitals: Assessment: Plan: * Treatment: * Images: * The named appointment provid er may or may not be the originator of this progress note, and it is not deemed complete until electronically signed by the appointment provider. Sign off status: Pending * Provider: Yair Bazzi DPM Date: 1 Generated for Jada pierce/Eula/Benji on: 1 05/18/2024 11:50 AM EST
--- OUTSIDE RECORDS SUMMARY | 2024-01-08 04:30 | XMS_ITS ---
Author Organization [facility] Address [address] [place] [address] Care Team Providers Care Sewer Hand Name Role Phone Judy Jeffery Primary Care Provider Agustin Lopez Unavailable [phone] Griselda Bazzi Unavailable [phone] Encounters Encounter Location Date Provider Diagnosis [address] [address] 01/08/2024 Griselda Bazzi Plan Of Treatment Next Appt Details Provider Name:Agustin Whiteside , 05/19/2025 09:15:00 AM, [address] [place] [address], [phone], Progress Notes * Heide ROMERO ADOB:08/1950 (74 yo F)Acc No.[id number]:01/08/2024 Progress Note Patient: Sadia KAREL Heide Ayon Provider: Yair Bazzi DPM :1950 A ge:73 Y S ex:Female Date:01/08/2024 Address:[address] [place] [phone] Pcp:Judy Jeffery Subjective: * Chief Complaints: * [...] Generated for Jada pierce/Eula/Benji on: 1 05/18/2024 11:49 AM EST
--- OUTSIDE RECORDS SUMMARY | 2024-11-28 08:00 | XMS_ITS ---
Author Organization [facility] Address [address] [place] [phone] Care Team Providers Care Business Continuity Director Name Role Phone Judy Jeffery Primary Care Provider Unavailabl Agustin Benito Unavailable [phone] Encounters Encounter Location Date Provider Diagnosis [address] [address] 11/28/2024 Agustin Whiteside Plan Of Treatment Next Appt Details Provider Name:Agustin Whiteside , 05/19/2025 09:15:00 AM, [address] [place], [address], Progress Notes * Heide ROMERO ADOB:08/1950 (74 yo F)Acc No.[id number]:11/28/2024 Progress Note Patient: Sadia LEWISVIRI Heide Gabo Provider: Angelita Whiteside DPM :1950 A ge:74 Y S ex:Female Date:11/28/2024 Address:[address] [place] [phone] Pcp:Judy Jeffery Subjective: * Chief Complaints: * [...] 11/28/2024 Generated for Jada pierce/Eula/Benji on: 1 05/18/2024 11:49 AM EST
[2025-03-17 10:17] VITALS: BP 138/62; PULSE 64; BMI 41.4
--- NOTE | 2025-03-17 10:17 | MHC.OFFVIS ---
Vital Signs 03/17/25 10:17 Height 5 ft 8 in Weight 272 lb 7.861 oz BMI 41.4 BP 138/62 Blood Pressure Location Lt brachial Position Sitting Pulse 64 Pulse Source Pulse Oximeter Intake Visit Reasons: 6m follow up Community Health Coordinator Required: No Health Care Recruiter: Health Care Recruiter Present Allergies acetaminophen (From Tylenol) Allergy (Mild, Verified 03/17/25 10:23) Diarrhea Medication List - Last Reconciled 03/17/25 by HEDY Mejia amlodipine 5 mg PO DAILY ammonium lactate 12% 1 appl topical BID aspirin 1 tab PO DAILY 90 days cholecalciferol (vitamin D3) 125 mcg PO DAILY 90 days citalopram 20 mg PO BID cranberry extract 200 mg PO DAILY glipizide ER 5 mg PO BID 90 days hydrochlorothiazide 12.5 mg PO DAILY lisinopril 20 mg PO BID lorazepam Take 1 tab prior to dental visits, repeat if needed if no improvement after 15 minutes metformin 1,000 mg (2 x 500 mg) PO BID miconazole nitrate 2% (Miconazole-7) 1 appful vaginal BEDTIME 7 days multivitamin with folic acid 400 mcg (Daily-Dusty (with folic acid)) 1 tab PO BID naproxen 250 mg PO BID PRN primidone 50 mg PO BID simvastatin 10 mg PO BEDTIME triamcinolone acetonide 0.1% 1 appl topical BID PRN HPI HPI 6m follow up: Details: The patient is a 74 year old female presenting for follow up of shortness of breath with exertion and heart palpitations. A recent workup included an echocardiogram on 03/18/2024, which showed an ejection fraction of 60-65%, moderate left ventricular hypertrophy, and mild aortic stenosis with no pulmonary hypertension. A 7-day Holter monitor on 09/03/2024 revealed sinus rhythm with rare supraventricular and ventricular ectopy. A stress echocardiogram on 09/03/2024, during which she exercised for 5 minutes and developed severe shortness of breath, showed no EKG changes or evidence of ischemia, diastolic dysfunction, or pulmonary hypertension. Her history is significant for obesity, hypertension, diabetes, sleep apnea treated with CPAP, and high cholesterol. The patient was evaluated by pulmonology, and no pulmonary component was identified as the cause of her shortness of breath. It was previously suggested that her symptoms could be related to deconditioning, hypertension, and other comorbidities. Her shortness of breath is reportedly unchanged and occurs with activities such as shoveling, bringing in wood, or feeding cows, but not with normal day-to-day activities. The symptom resolves with rest, and she does not experience associated chest pain. Her current cardiac medications include aspirin, amlodipine, hydrochlorothiazide, and lisinopril. 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 [facility] Medical History Thyroid nodule Anxiety and depression Hyperlipidemia Tension headache Osteoarthritis of right ankle Hx of head injury Arthritis Elevated cholesterol Anxiety CONCHITA on CPAP Diabetes HTN (hypertension) Surgical History Hx of bilateral cataract extraction Hx of colonoscopy (~07/22/21) Family History Father Diabetes Heart attack High blood pressure Mother Diabetes Social History Housing: House Alcohol intake: never Patient Tobacco Use Status: Never used Tobacco e-Cigarette/Vaping Use: Never Used service: No Current occupational status: retired Current occupation: rt handed Cognitive needs: Yes (cane) Hearing needs: No Vision needs: Yes (reading glasses) Female Reproductive History Menstrual Age of Menarche: 15 Review of Systems Const All systems reviewed & are unremarkable except as noted in HPI and below ENT Denies dizziness Card Denies chest pain, Denies chest pain at rest, Denies chest pain with activity, Denies rapid heart rate, Denies pedal edema, Denies edema, Denies leg edema, Denies lightheadedness, Denies palpitations, Denies dyspnea, Reports dyspnea on exertion and Denies orthopnea Resp Denies cough, Denies dyspnea and Reports dyspnea on exertion GI Denies hematochezia and Denies change in stool character Musc Denies abnormal gait, Denies limited range of motion, Denies muscle cramps, Denies muscle weakness, Denies numbness, Denies radiating pain into limb, Denies stiffness and Denies tingling Neuro Denies abnormal gait, Denies dizziness, Denies numbness and Denies tingling Endo Denies palpitations Physical Exam Vital Signs: Last Vital Signs Pulse 64 03/17/25 10:17 BP 138/62 03/17/25 10:17 BMI result Body Mass Index 41.4 Const General: cooperative, healthy appearing, comfortable and no acute distress Orientation/consciousness: patient oriented x3 Neck Neck: Yes normal visual inspection Resp Effort & Inspection: normal respiratory effort Auscultation: clear to auscultation bilaterally, no rales, no rhonchi and no wheezes Cardio Rate: regular rate Rhythm: regular rhythm Heart sounds: S1 normal heart sound present, S2 normal heart sound present, no gallops, no murmurs and no rubs Neuro General: patient oriented x3 Extrem General: Yes normal to inspection Psych Appearance: grossly normal Mental Status: mental status grossly normal Speech and movement: Normal speech and movement present Assessment & Plan Assessment & Plan (1) Dyspnea on exertion: Code(s): R06.09 - Other forms of dyspnea Category: Medical Plan: Reports of shortness of breath with exertion without clear cardiac cause. She does have morbid obesity, hypertension, sleep apnea, deconditioning all of which can contribute. Continue activity as tolerated. Continue CPAP. Call if condition worsening. Cardiology follow-up 6 months, sooner if needed. (2) HTN (hypertension): Code(s): I10 - Essential (primary) hypertension Category: Medical Plan: Blood pressure goal less than 130/80. Mild elevation today at 138/62. Reviewed benefits a weight loss, low-salt diet, activity as tolerated. No med changes made. (3) Aortic stenosis: Code(s): I35.0 - Nonrheumatic aortic (valve) stenosis Category: Medical Plan: Last echo showing mild aortic stenosis. Will plan for a repeat echocardiogram prior to next visit. (4) CONCHITA on CPAP: Code(s): G47.33 - Obstructive sleep apnea (adult) (pediatric); Z99.89 - Dependence on other enabling machines and devices Category: Medical Plan: History of sleep apnea with CPAP use. The importance of ongoing compliance reviewed. (5) Obesity: Code(s): E66.9 - Obesity, unspecified Category: Medical Plan: Morbid obesity. Continue to work on weight loss as able. Plan I discussed with the patient and her family member that her symptoms of shortness of breath are stable and that the extensive cardiac and pulmonary workup has been reassuring, with no clear reversible cause identified. I explained that the mild aortic stenosis is not contributing significantly to her symptoms. We reviewed that her blood pressure is controlled on her current medication regimen, which she is taking as prescribed. Based on a normal physical examination today, stable symptoms, and a negative workup, we will continue with medical management and observation. She is encouraged to continue activity as tolerated. Orders: Orders CA echo transthoracic complete 5 Months Elaine Hutchinson, TERRELL-C I35.0 - Nonrheumatic aortic (valve) stenosis Medications: Changed From primidone 100 mg (2 x 50 mg) PO BID 90 days 360 tabs 1RF To primidone 50 mg PO BID Yashira Batres CNP Patient Instructions: - Continue taking all your medications as prescribed, including those for blood pressure. - It is good that you are staying active; continue your activities like walking and chores as you feel able. - If you feel short of breath, stop and rest until the feeling goes away. - Contact our office if your breathing gets worse or if you develop new symptoms like chest pain. - We will recheck an ultrasound of your heart prior to your next visit. Patient was informed and verbally consented to the use of an ambient scribe for clinic note documentation during this visit. Visit time spent on chart review, interview, assessment, orders, documentation. Coding Level of Care Code Est Pt Level 4 (14108) Add On Problem Visit Only Diagnoses Dyspnea on exertion R06.09 HTN (hypertension) I10 Aortic stenosis I35.0 CONCHITA on CPAP G47.33; Z99.89 Obesity E66.9 Time Spent (min) 28
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
--- OUTSIDE RECORDS SUMMARY | 2025-03-17 11:50 | XMS_ITS | Patient Health Record ---
Author Organization [facility] Address [address] [place] [address] Care Team Providers Care Top Bottom Attaching Machine Operator Name Role Phone JANET CORONADO Primary Care Provider Omid Rogers Unavailable [phone] Allergies Allergen (clinical drug ingredient) Drug/Non Drug [...] Options Details Miscellaneous: Marital status: single Occupation: [employer]/retired Section Notes: Nonsmoker; no sig alcohol Nonsmoker; no sig alcohol Nonsmoker; no sig alcohol Problems Problem Type SNOMED Code ICD Code Onset Dates Problem Status W/U Status Risk Notes Problem Screening for malignant neoplasm of colon (489596570) Encounter for screening for malignant neoplasm of colon (Z12.11) Active confirmed Problem History of adenomatous polyp of colon (569117489) History of adenomatous polyp of colon (Z86.010) Active confirmed Problem Preprocedural examination (050088472766091) Preprocedural examination (Z01.818) Active confirmed Problem Long-term current use of antiplatelet drug (916233858177397) Long-term use of aspirin therapy (Z79.82) Active confirmed Problem Diverticulosis of colon (391826974) Diverticulosis of colon (K57.30) Active confirmed Vital Signs Temperature 97.1 degrees Fahrenheit 10/23/2024 Blood pressure diastolic 01 mm Hg 10/23/2024 Height 68 in 10/23/2024 Blood pressure systolic 001 mm Hg 10/23/2024 Weight 273.4 lbs 10/23/2024 BMI 41.57 kg/m2 10/23/2024 Encounters Encounter Location Date Provider Diagnosis [facility] [address] [place] [address] 10/23/2024 Omid Green History of adenomato us [...] Date MEDICARE OF [place] [address] [place] [address] [id number] RYNE AMBRIZ Self - patient is the insured [employer] ATT[employer] CLAIMS [address] [place] [address] [id number] RYNE AMBRIZ Self - patient is [...]
== END 2025-03-17 10:47 | disposition home or self-care (01) ==
LOC: HO.HCS 09:51
PROVIDERS: PCP Internal Medicine; Visit Provider Nurse Practitioner Family
DX: R06.09 Other forms of dyspnea (principal); I10 Essential (primary) hypertension; I35.0 Nonrheumatic aortic (valve) stenosis; G47.33 Obstructive sleep apnea (adult) (pediatric); Z99.89 Dependence on other enabling machines and devices; E66.9 Obesity, unspecified
CPT/HCPCS: 99214; G2211

== ENCOUNTER → 2025-03-17 09:51 | Outpatient (BNVA) | payer MEDICARE, SELFPAY | PROVIDERS: PCP Internal Medicine; Visit Provider Nurse Practitioner Family | DX: R06.09 Other forms of dyspnea (principal); I10 Essential (primary) hypertension; I35.0 Nonrheumatic aortic (valve) stenosis; G47.33 Obstructive sleep apnea (adult) (pediatric); Z99.89 Dependence on other enabling machines and devices; E66.9 Obesity, unspecified | CPT/HCPCS: 99212 ==